=== PATIENT | female | born 1970 | race Caucasian/White ===

== ENCOUNTER 2017-05-02 01:47 | Observation (INO) | payer MEDICAID ==
[~2017-05-02] VITALS: Ht 160 cm; Wt 86.8 kg
[~2017-05-02 01:47] MED LIST: ACE500 PO; ALB18R INH; ALBU8.5H12 IH; AMIT-106 PO; AMO500 PO; AMOX-362 PO; AMPH20TA17 PO; AMPH20TA18 PO; AMPH30TA10; ASC500 PO; ASCO-188 PO; AUG875 PO; AZI250 PO; BUS10 PO; CALC-18 PO; CALC-922 PO; CALC500T42 PO; CALC500T76 PO; CEFU500T10 PO; CELE-1 PO; CHEMO; CHOL100060 PO; CHOL200074 PO; CIPR-344 PO; CLA500 PO; CLI150 PO; CRAN425C8 PO; CRAN500T; CROT60CR TP; CYA1000I IM; CYAN25004 PO; CYAN50TA3 PO; CYC10 PO; CYCL10TA29 PO; DEXA2TAB7 PO; DIAZ-308 PO; DICY10CA11 PO; DIP25 PO; DOCU-299 PO; DOCU-416 PO; ENO100I SC; ESTR1PAT3 TD; ESTR1TAB4 PO; FISH1CAP23 PO; FLAX100042 PO; FLUT16SP20 NS; GUAI120L3 PO; GUAI473L PO; HYDR-4228 PO; IRON150C19 PO; LEVO750T25 PO; LOR10/325 PO; LOR5 PO; LOR5/325 PO; METH4TAB57 PO; METO-734 PO; MODA200T39 PO; MULT-1032 PO; MULT-1038 PO; MULT-834 PO; MULT1CAP41 PO; MULTIVIT PO; NIT100 PO; NITR-1 PO; OMEG-36 PO; OMEP40CA48 PO; OND8 PO; ONDA4TAB PO; OSE75 PO; OXYC-688 PO; OXYC10TA67 PO; PAN40 PO; PAR20 PO; PARO-243 PO; PARO30TA71 PO; PENI-22 PO; PER PO; PERCOCET; PHEN120S16 PO; PHEN200T32 PO; PRE20 PO; PRO5 PO; PROAIRPT IH; PROM-110 PO; PSYL3.4P2 PO; RANI150C17 PO; SERT-182 PO; SUCR1TAB51 PO; TOLT4CAP13 PO; TRA50 PO; TRAZ-156 PO; VANC500V10 PO; VEN375 PO; VENL150C61 PO; VENL75TA98 PO; VIT B 12 PO; VIT B12 IM; VIT C PO; WAR5 PO; WARF10TA29 PO; [UNRECOGNIZED DRUG - CODE] PO; [UNRECOGNIZED DRUG - CODE] SQ
[2017-05-02] MEDS ORDERED: MIDAZOLAM 2 MG/2 ML VIAL IVP ONE (13:45)
[2017-05-02] MEDS ORDERED: LIDOCAINE/SOD BICARB 8.4% SYR ID ONE (13:45)
[2017-05-02] MEDS ORDERED: NORMOSOL R SOLN(*) 1000 ML BAG 1,000 ML IV PRN (13:45)
[2017-05-02] MEDS ORDERED: AMPICILLIN/SULBACT (*) 3 GM VL 3 GM in NS(*) 0.9% 100 ML BAG 100 ML IVPB ONE (13:45)
[2017-05-02] MEDS ORDERED: FAMOTIDINE 20 MG TAB PO ONE (13:45)
[2017-05-02 13:57] VITALS: BP 114/75
[2017-05-02] MEDS ORDERED: ROPIVACAINE 0.5% 20 ML VIAL ONE (14:22)
[2017-05-02] MEDS ORDERED: IOPAMIDOL 76% 50 ML INFUS BTL 50 ML ONE (14:22)
[2017-05-02] MEDS ORDERED: PROPOFOL EMUL(*) 10MG/ML 20 ML 20 ML ONE (14:29)
[2017-05-02] MEDS ORDERED: fentaNYL CITR 250 MCG/5 ML AMP ONE (14:29)
[2017-05-02] MEDS ORDERED: LIDOCAINE MPF 1% 5 ML VIAL ONE (14:29)
[2017-05-02] MEDS ORDERED: ONDANSETRON 4 MG/2 ML VIAL ONE (14:29)
[2017-05-02] MEDS ORDERED: DEXAMETHASONE SOD PHOS 10MG/ML ONE (14:29)
[2017-05-02] MEDS ORDERED: ROCURONIUM BROM 10 MG/ML 5 ML ONE (16:50)
[2017-05-02] MEDS ORDERED: KETAMINE HCL 200 MG/20 ML MDV ONE (16:50)
[2017-05-02] MEDS ORDERED: HALOPERIDOL LACT 5 MG/ML VIAL IM ONE (16:53)
[2017-05-02] MEDS ORDERED: SUGAMMADEX SOD 200 MG/2 ML SDV ONE (17:12)
[2017-05-02] MEDS ORDERED: CELLULOSE HEMOSTAT 1 EACH PKT OP-SITE ONE (17:33)
[2017-05-02] MEDS ORDERED: NS(*) 0.9% 1000 ML BAG 1,000 ML IV PRN (17:59)
[2017-05-02] MEDS ORDERED: ONDANSETRON 4 MG/2 ML VIAL IVP PRN (18:00)
[2017-05-02] MEDS ORDERED: FLUSH 10 ML SYR IVP PRN (18:00)
[2017-05-02] MEDS ORDERED: MORPHINE 2 MG/ML SYR IVP PRN (18:00)
[2017-05-02] MEDS ORDERED: ALBUTEROL/IPRATROPIUM 3 ML NEB NEB PRN (18:00)
[2017-05-02] MEDS ORDERED: OXYC-854 PO (18:07)
[2017-05-02] MEDS ORDERED: DOCU-416 PO (18:07)
--- NOTE | 2017-05-02 18:12 | Short(Outpt) Discharge Summary ---
KEKE ELIZABETH MD 05/02/171811: Discharge Summary Reason for Hosp/Final Diag: (1) Cholelithiasis Status: Chronic Hospital Course & Plan: 05/02/17: Lap kp completed without problems. Pt to remain overnight for observation. Departure Discharge to: Home, Self Care Discharge Instructions Home Meds Active Scripts Docusate Sodium (COLACE) 100 Mg Capsule, 1 CAP PO BID, #30 CAP 0 Refills TAKE WITH A FULL GLASS OF WATER Prov:KEKE ELIZABETH MD 05/02/17 Oxycodone Hcl/Acet 5/325 Mg (ENDOCET 5-325 TABLET) 1 Each Tablet, 1-2 TAB PO Q4H Y for PAIN, #30 TAB 0 Refills Prov:KEKE ELIZABETH MD 05/02/17 Reported Medications Cranberry Extract (CRANBERRY) 425 Mg Capsule, 2 TAB PO BID, CAPSULE 04/25/17 Psyllium Husk/Aspartame (METAMUCIL FIBER SINGLES PACKET) 3.4 Gm Powd.pack, 3.4 GM PO BID 04/25/17 Albuterol Sulfate (VENTOLIN HFA) 18 Gm Inh, 2 PUFF INH BID, INH 04/17/17 Paroxetine Hcl (PAROXETINE HCL) 30 Mg Tablet, 30 MG PO BID 04/17/17 Multivitamin W/Iron, Minerals (FLINTSTONES COMPLETE) 1 Each Tab.chew, 2 EACH PO DAILY, TAB.CHEW 10/11/16 Iron Polysaccharides Complex (POLYSACCHARIDE IRON 150) 150 Mg Capsule, 27 MG PO QDAY, CAPSULE 10/11/16 Estradiol (ESTRADIOL 0.05 MG) 1 Each Patch.tdwk, 1 EACH TD DAILY, PATCH.WK 08/30/16 Cyanocobalamin (Vitamin B-12) (Vitamin B12) Unknown Strength Tablet, 1000 MCG PO QWEEK 03/16/15 Ascorbic Acid (VITAMIN C) 500 Mg Tab.chew, 500 MG PO BID, TAB.CHEW 03/16/15 Cholecalciferol (Vitamin D3) (VITAMIN D-3) 2,000 Unit Capsule, 5000 UNIT PO QDAY , CAPSULE 03/12/15 [place]-3 Fatty Acids/Fish Oil (OMEGA 3 FISH OIL SOFTGEL) 1 Each Capsule.dr, 1 EACH PO BID 03/12/15 Diazepam (DIAZEPAM) 5 Mg Tablet, 5 MG PO BID Y for ANXIETY, #15 TAB 07/02/14 Amphet Asp/Amphet/D-Amphet (ADDERALL 20 MG TABLET) 20 Mg Tablet, 20 MG PO BID 07/02/14 Omeprazole (OMEPRAZOLE) 40 Mg Capsule.dr, 40 MG PO BID 06/24/13 Calcium (Calcium) 500 Mg Tablet, 500 MG PO BID, 0 Refills 02/06/11 Buspirone Hcl (Buspar) 10 Mg Tablet, 10 MG PO BID, 0 Refills 02/06/11 Follow up Referrals: General Surgery @ Surgery, General with Keke Elizabeth Md You have a follow up appointment scheduled with Dr. Elizabeth on 05/27/17, at 1:00pm. Diet: Regular Activity: As Tolerated Special Instructions: You may remove the white surgical dressings on 05/04/17, then you can shower. After showering, leave the incisions open to air but leave the steristrips in place until they fall off on their own. Do not immerse the incisions for 2 weeks. ADRIENNE CORNELIUS MD 05/03/17 0837: Discharge Summary Reason for Hosp/Final Diag: (1) Cholelithiasis Status: Chronic Hospital Course & Plan: 05/02/17: Lap kp completed without problems. Pt to remain overnight for observation. 05/03/17 doing well home today. Departure Discharge to: Home Discharge Instructions Home Meds Active Scripts Docusate Sodium (COLACE) 100 Mg Capsule, 1 CAP PO BID, #30 CAP 0 Refills TAKE WITH A FULL GLASS OF WATER Prov:KEKE ELIZABETH MD 05/02/17 Oxycodone Hcl/Acet 5/325 Mg (ENDOCET 5-325 TABLET) 1 Each Tablet, 1-2 TAB PO Q4H Y for PAIN, #30 TAB 0 Refills Prov:KEKE ELIZABETH MD 05/02/17 Reported Medications Cranberry Extract (CRANBERRY) 425 Mg Capsule, 2 TAB PO BID, CAPSULE 04/25/17 Psyllium Husk/Aspartame (METAMUCIL FIBER SINGLES PACKET) 3.4 Gm Powd.pack, 3.4 GM PO BID 04/25/17 Albuterol Sulfate (VENTOLIN HFA) 18 Gm Inh, 2 PUFF INH BID, INH 04/17/17 Paroxetine Hcl (PAROXETINE HCL) 30 Mg Tablet, 30 MG PO BID 1/10/18 Multivitamin W/Iron, Minerals (FLINTSTONES COMPLETE) 1 Each Tab.chew, 2 EACH PO DAILY, TAB.CHEW 10/11/16 Iron Polysaccharides Complex (POLYSACCHARIDE IRON 150) 150 Mg Capsule, 27 MG PO QDAY, CAPSULE 10/11/16 Estradiol (ESTRADIOL 0.05 MG) 1 Each Patch.tdwk, 1 EACH TD DAILY, PATCH.WK 08/30/16 Cyanocobalamin (Vitamin B-12) (Vitamin B12) Unknown Strength Tablet, 1000 MCG PO QWEEK 03/16/15 Ascorbic Acid (VITAMIN C) 500 Mg Tab.chew, 500 MG PO BID, TAB.CHEW 03/16/15 Cholecalciferol (Vitamin D3) (VITAMIN D-3) 2,000 Unit Capsule, 5000 UNIT PO QDAY , CAPSULE 03/12/15 [place]-3 Fatty Acids/Fish Oil (OMEGA 3 FISH OIL SOFTGEL) 1 Each Capsule.dr, 1 EACH PO BID 03/12/15 Diazepam (DIAZEPAM) 5 Mg Tablet, 5 MG PO BID Y for ANXIETY, #15 TAB 07/02/14 Amphet Asp/Amphet/D-Amphet (ADDERALL 20 MG TABLET) 20 Mg Tablet, 20 MG PO BID 07/02/14 Omeprazole (OMEPRAZOLE) 40 Mg Capsule.dr, 40 MG PO BID 06/24/13 Calcium (Calcium) 500 Mg Tablet, 500 MG PO BID, 0 Refills 02/06/11 Buspirone Hcl (Buspar) 10 Mg Tablet, 10 MG PO BID, 0 Refills 02/06/11 Follow up Referrals: General Surgery @ Surgery, General with Keke Elizabeth Md You have a follow up appointment scheduled with Dr. Elizabeth on 05/27/17, at 1:00pm. Diet: Regular Activity: As Tolerated Special Instructions: remove bandage and shower tomorrow Problem Qualifiers (1) Cholelithiasis: Cholelithiasis location: gallbladder Cholecystitis presence: without cholecystitis Biliary obstruction: without biliary obstruction Qualified Codes: K80.20 - Calculus of gallbladder without cholecystitis without obstruction KEKE ELIZABETH MD May 02, 2017 18:12 ADRIENNE CORNELIUS MD May 03, 2017 08:37
--- NOTE | 2017-05-02 18:20 | Post Operative Progress Note ---
Post Operative Progress Note Date: May 02, 2017 Time: 18:13 Surgeon: Rubens Dictation number: [id number] Anesthesia: GETA by Dr. Lipscomb Pre-Op Diagnosis: Symptomatic Gallstones Post-Op Diagnosis: CHELO Findings: C/W dx, normal IOC Procedure(s): Lap kp with cholangiogram Specimen Removed:(May be N/A): GB and contents Complications: None Fluids: See anesthesia record Estimated Blood Loss: Minimal Date OP Note Dictated: May 02, 2017 Time OP Note Dictated: 18:14 KEKE ELIZABETH MD May 02, 2017 18:20
[2017-05-02] MEDS ORDERED: fentaNYL CITR 100 MCG/2 ML AMP ONE (18:23)
[2017-05-02 19:31] VITALS: BP 132/83
[2017-05-02] MEDS: CALCIUM OYSTER SHELL 500MG TAB PO SCH (21:41)
[2017-05-02] MEDS: DOCUSATE SODIUM 100 MG CAP PO SCH (21:41)
[2017-05-02] MEDS: PAROXETINE HCL 10 MG TABLET PO SCH (21:41)
[2017-05-02] MEDS: busPIRone HCL 5 MG TAB PO SCH (21:41)
[2017-05-02] MEDS: ASCORBIC ACID 500 MG TAB PO SCH (21:41)
[2017-05-02] MEDS: FAMOTIDINE 20 MG TAB PO SCH (21:41)
--- NOTE | 2017-05-02 22:43 | RADIOLOGY IMAGING REPORT ---
FACILITY: [facility] [place] PATIENT NAME: Lisseth Adame : 1970 MR: [id number] V: [id number] EXAM DATE: ORDERING PHYSICIAN: KEKE ELIZABETH TECHNOLOGIST: Location: [facility] Patient: Lisseth Adame : 1970 Visit/Account:[id number] Date of Sevice: 05/02/2017 Cholangiogram in OR: Indication: Intraoperative imaging. Technique: 29 images were submitted. Fluoroscopy time was 7.2 seconds. Comparison: Ultrasound of the abdomen dated 03/28/2017. Findings: Contrast was injected through the cystic duct remnant. There is uniform opacification of th e biliary tree. The flow of contrast into the duodenum appears unrestricted. There are no signs of ob struction, dilatation, filling defect, or mass effect. Impression: Unremarkable study. Report Dictated By: Aristides Perry MD at 05/02/2017 10:35 PM Report E-Signed By: Aristides Perry MD at 05/02/2017 10:40 PM WSN:[id number]
[2017-05-03 00:15] VITALS: BP 111/69
[2017-05-03 02:35] VITALS: BP 110/68
[2017-05-03 08:11] VITALS: BP 117/71
[2017-05-03] MEDS: FAMOTIDINE 20 MG TAB PO SCH (08:23)
[2017-05-03] MEDS: CALCIUM OYSTER SHELL 500MG TAB PO SCH (08:24)
[2017-05-03] MEDS: PAROXETINE HCL 10 MG TABLET PO SCH (08:24)
[2017-05-03] MEDS: DOCUSATE SODIUM 100 MG CAP PO SCH (08:25)
[2017-05-03] MEDS: busPIRone HCL 5 MG TAB PO SCH (08:25)
[2017-05-03] MEDS: ASCORBIC ACID 500 MG TAB PO SCH (08:26)
--- NOTE | 2017-05-03 08:36 | General Surgery Progress Note ---
Subjective Progress Notes Subjective no complaints, pain under control has appetite Physical Exam Vital Signs Date Time Temp Pulse Resp B/P (MAP) Pulse Ox O2 Delivery O2 Flow Rate FiO2 05/03/17 08:11 96.9 68 20 117/71 (86) 96 Room Air 05/03/17 03:31 0.3 Assessment and Plan Problems: (1) Cholelithiasis Status: Chronic Assessment & Plan: 05/02/17: Lap kp completed without problems. Pt to remain overnight for observation. 05/03/17 doing well home today. Exam Sepsis Risk: No Definite Risk Problem Qualifiers (1) Cholelithiasis: Cholelithiasis location: gallbladder Cholecystitis presence: without cholecystitis Biliary obstruction: without biliary obstruction Qualified Codes: K80.20 - Calculus of gallbladder without cholecystitis without obstruction ADRIENNE CORNELIUS MD May 03, 2017 08:36
[2017-05-03] MEDS ORDERED: POLYSACCHARIDE IRON COM 150 MG PO SCH (09:00)
[2017-05-03] MEDS ORDERED: ESTRADIOL 0.05 MG/24 HR TD SCH (09:00)
[2017-05-03 09:08] VITALS: Ht 160 cm; Wt 86.8 kg
--- NOTE | 2017-05-03 15:08 | OPERATIVE REPORT 1 ---
EVENT DATE: May 02, 2017 SURGEON: Rd Art MD ANESTHESIOLOGIST: Omid Lipscomb MD ANESTHESIA: General endotracheal anesthesia. PREOPERATIVE DIAGNOSIS Symptomatic cholelithiasis. POSTOPERATIVE DIAGNOSIS Symptomatic cholelithiasis. PROCEDURE PERFORMED Laparoscopic cholecystectomy with intraoperative cholangiogram. COMPLICATIONS None. CONDITION Stable. BLOOD LOSS Minimal. INDICATIONS This is a 47-year-old female who presented to my office complaining of postprandial right upper quadrant abdominal pain. She was found to have gallstones, and she was requesting to have her gallbladder removed. DESCRIPTION OF PROCEDURE The patient was brought to the operating room and placed supine on the operating room table. General endotracheal anesthesia was administered, and her abdomen was prepped and draped in a sterile fashion. Timeout was completed. I injected the infraumbilical skin with 0.5% ropivacaine plain. I made a curvilinear smiley face-type incision in the infraumbilical rim and dissected down through the dermis and subcutaneous fat, and I identified the midline fascia. I made a vertical incision in the midline fascia and grasped the fascial edges with Carolyn clamps. I retracted the fascia towards the ceiling with my finger and then bluntly entered the peritoneal cavity. I placed two interrupted 0 Vicryl sutures transversely through the vertical fascial defect, inserted a 12 mm Aaron-type port through this wound, and secured it in place with sutures. I insufflated the abdomen to a pressure of 15 mmHg and inserted a 5 mm, 30-degree angled scope through this port. Next under direct visualization, I placed a 5 mm port in the epigastric midline and two 5 mm ports in the right upper quadrant. I then had the patient placed in reverse Trendelenburg and planed towards her left. I removed the viscera away from the right upper quadrant. I then grasped the fundus of the gallbladder and retracted it towards the patient's right shoulder, and the infundibulum was grasped and retracted towards the patient's right hip. I used the hook electrocautery and divided the peritoneum overlying the infundibulum and up both the medial and lateral aspects of the gallbladder, and this served to mobilize the infundibulum and open up the critical view. I stripped the peritoneum and subperitoneal contents down from the infundibulum and identified the cystic duct and artery. These were cleaned off circumferentially. I clipped proximally and distally on the artery, and then the artery was divided between the clips. The duct was clipped at the infundibulum-cystic duct junction. I made a ductotomy and then milked the duct from distal to proximal to remove any debris from the duct, and there was none. I then inserted the Wilson clamp with the cholangiocatheter and then inserted the catheter into the duct. I clamped it in place with the Wilson clamp. I aspirated first and then flushed it with saline. It flushed with no problems, and then the cholangiogram was completed at this time. The C-arm was moved into place, and I flushed the cystic duct with OptiView and observed contrast flowing through the cystic duct, the common bile duct, the duodenum, and up into the common hepatic duct and intrahepatic biliary system, all without resistance or filling defects. I then removed the cholangiocatheter and clipped the duct with three clips distal to the ductotomy and divided the duct where the ductotomy was made. I then the gallbladder from the gallbladder fossa by dividing the posterior attachments with the hook electrocautery, and then the gallbladder was placed in a surgical specimen retrieval bag and removed from the abdomen through the umbilical port site. I then irrigated and dried the right upper quadrant. There were a couple of areas of oozing on the gallbladder fossa, and these were controlled with electrocautery. I then coated the gallbladder fossa with Surgicel and Lonny hemostatic powder. I ensured all irrigation fluid was removed from the right upper quadrant. I then removed all instruments and the 5 mm ports. I inspected the peritoneal surfaces for bleeding. There was none. I desufflated the abdomen and then removed the umbilical port. Once all the CO2 was removed from the abdomen, I closed the midline fascial defect at the umbilical incision with another 0 Vicryl [id number] suture. I tied all three of these down with good reapproximation of the fascial edges with no remaining fascial defect. The skin at each port site was closed with 4-0 Monocryl subcuticular suture. The skin was cleaned and dried, and Steri-Strips were applied, followed by sterile surgical dressings. The patient was awakened and extubated in the operating room and transported to the recovery room in stable condition having tolerated the procedure without any apparent problems. J LUIS
[2017-05-04] MEDS ORDERED: PATCH REMOVAL 1 EA TP SCH (09:00)
== END 2017-05-03 08:36 | disposition home or self-care (01) ==
LOC: OR 01:47 → MED 19:30 → INTOOBSV 19:30
PROVIDERS: ADMIT Surgery; ATTEND Surgery
DX: K80.20 Calculus of gallbladder without cholecystitis without obstruction (principal)
CPT/HCPCS: 47563; 74300; 88304; G0378; J0295; J1100; J1630; J2001; J2250; J2270; J2405; J2704; J2795; J3010; J3490; J7050; Q9967

== ENCOUNTER 2017-05-08 10:39 | Emergency (ER) | payer MEDICAID ==
[2017-05-03 09:08] VITALS: Ht 160 cm; Wt 85.3 kg
[~2017-05-08] VITALS: Ht 160 cm; Wt 85.3 kg
[~2017-05-08 10:39] MED LIST changes: +OXYC-854 PO
--- NOTE | 2017-05-08 10:59 | ER Report ---
History and Physical Time Seen By MD: 10:58 Hx. of Stated Complaint: Pt had cholcystectomy last . Pt's complaint is of fever and flu symptoms. HPI/ROS CHIEF COMPLAINT: Fever HISTORY OF PRESENT ILLNESS: 47-year-old female patient presents to the emergency room with complaint of fever and bodyaches. Patient states that this started on Saturday night or early Saturday morning. She states that the bodyaches and fevers seem to last throughout night and then resolved during the day. She states she had a fever of 101. She states since then her fever is not been greater than 99. She states that it happened again the night before last and then again last night. She states that she came in to be evaluated today because the symptoms did not resolve. She states that she is achy from head to toe. She states that she has run out of her pain medication. She states that there is nothing seems to help with her discomfort. She states she's tried ice to her abdomen which has helped but that has made her more chilled. She states she has noticed some sinus congestion, cough. She denies having any nausea, vomiting or diarrhea. Should she's had no appetite. REVIEW OF SYSTEMS: Respiratory: As noted above Cardiovascular: No chest pain, no palpitations. Gastrointestinal: Patient is 6 days status post cholecystectomy. Musculoskeletal: No back pain. Allergies: Coded Allergies: bupropion (Verified Allergy, Severe, RASH, HIVES, SWELLING, 05/08/17) Home Meds Active Scripts Oxycodone Hcl/Acetaminophen (PERCOCET 5-325 MG TABLET) 1 Each Tablet, 1 EACH PO Q4-6H Y for PAIN, #10 TAB Prov:SUNIL GERMAN 05/08/17 Docusate Sodium (COLACE) 100 Mg Capsule, 1 CAP PO BID, #30 CAP 0 Refills TAKE WITH A FULL GLASS OF WATER Prov:KEKE ELIZABETH MD 05/02/17 Reported Medications Cranberry Extract (CRANBERRY) 425 Mg Capsule, 2 TAB PO BID, CAPSULE 04/25/17 Albuterol Sulfate (VENTOLIN HFA) 18 Gm Inh, 2 PUFF INH BID, INH 04/17/17 Paroxetine Hcl (PAROXETINE HCL) 30 Mg Tablet, 30 MG PO BID 04/17/17 Multivitamin W/Iron, Minerals (FLINTSTONES COMPLETE) 1 Each Tab.chew, 2 EACH PO DAILY, TAB.CHEW 10/11/16 Iron Polysaccharides Complex (POLYSACCHARIDE IRON 150) 150 Mg Capsule, 27 MG PO QDAY, CAPSULE 10/11/16 Estradiol (ESTRADIOL 0.05 MG) 1 Each Patch.tdwk, 1 EACH TD DAILY, PATCH.WK 08/30/16 Cyanocobalamin (Vitamin B-12) (Vitamin B12) Unknown Strength Tablet, 1000 MCG PO QWEEK 03/16/15 Ascorbic Acid (VITAMIN C) 500 Mg Tab.chew, 500 MG PO BID, TAB.CHEW 03/16/15 Cholecalciferol (Vitamin D3) (VITAMIN D-3) 2,000 Unit Capsule, 5000 UNIT PO QDAY , CAPSULE 03/12/15 Doucette-3 Fatty Acids/Fish Oil (OMEGA 3 FISH OIL SOFTGEL) 1 Each Capsule.dr, 1 EACH PO BID 03/12/15 Diazepam (DIAZEPAM) 5 Mg Tablet, 5 MG PO BID Y for ANXIETY, #15 TAB 07/02/14 Amphet Asp/Amphet/D-Amphet (ADDERALL 20 MG TABLET) 20 Mg Tablet, 20 MG PO BID 07/02/14 Omeprazole (OMEPRAZOLE) 40 Mg Capsule.dr, 40 MG PO BID 06/24/13 Calcium (Calcium) 500 Mg Tablet, 500 MG PO BID, 0 Refills 02/06/11 Buspirone Hcl (Buspar) 10 Mg Tablet, 10 MG PO BID, 0 Refills 02/06/11 Discontinued Reported Medications Psyllium Husk/Aspartame (METAMUCIL FIBER SINGLES PACKET) 3.4 Gm Powd.pack, 3.4 GM PO BID 04/25/17 Discontinued Scripts Oxycodone Hcl/Acet 5/325 Mg (ENDOCET 5-325 TABLET) 1 Each Tablet, 1-2 TAB PO Q4H Y for PAIN, #30 TAB 0 Refills Prov:KEKE ELIZABETH MD 05/02/17 Past Medical/Surgical History Patient has a past medical history of pulmonary emboli, hyperlipidemia, bronchitis, sinusitis, asthma, pneumonia, ulcers, cholecystitis, hiatal hernia, renal cell carcinoma, arthritis, back pain, anemia, marijuana use, alcohol use, depression, suicide attempt. Patient has surgical history of right kidney removed, cholecystitis, gastric bypass, adhesions removed, hysterectomy, left ulnar nerve release, bilateral radial nerve release, wisdom teeth removed, tonsillectomy. Patient has a family medical history of cancer. Reviewed Nurses Notes: Yes Hx Smoking: Yes (last was 24 hrs ago; 1-10 per day) Smoking Status: Current: Every Day Smoker, Light Tobacco Smoker Exposure to Second Hand Smoke?: Yes Hx Substance Use Disorder: No (marijuana last use several weeks ago) Hx Alcohol Use: Yes Constitutional Vital Sign - Last 24 Hours 05/08/17 05/08/17 10:48 14:05 Temp 99.5 Pulse 79 71 Resp 22 B/P (MAP) 117/80 114/69 (84) Pulse Ox 98 97 O2 Delivery Room Air Room Air Intake and Output 05/08/17 05/08/17 05/09/17 15:00 23:00 07:00 Intake Total 1000 ml Balance 1000 ml Physical Exam General Appearance: The patient is alert, has no immediate need for airway protection and no current signs of toxicity. ENT: Tympanic membranes are pearly-schmidt, auditory canals are patent, mucous membranes are moist. Respiratory: Chest is non tender, lungs are clear to auscultation. Cardiac: regular rate and rhythm Gastrointestinal: Abdomen is soft and diffusely tender, no masses, bowel sounds normal. Musculoskeletal: Neck: Neck is supple and non tender. Extremities have full range of motion and are non tender. Skin: No rashes or lesions. DIFFERENTIAL DIAGNOSIS: After history and physical exam differential diagnosis was considered for fever in adults including but not limited to pneumonia, urinary tract infection, viral syndrome, and influenza. Medical Decision Making Data Points Result Diagram: 05/08/17 1120 05/08/17 1120 Laboratory Hematology Test 05/08/17 10:55 05/08/17 11:20 05/08/17 12:58 Influenza Virus Type A (PCR) Negative (NEGATIVE) Influenza Virus Type B (PCR) Negative (NEGATIVE) Red Blood Count 4.24 M/uL (4.17-5.56) Mean Corpuscular Volume 91.7 fL (80.0-96.0) Mean Corpuscular Hemoglobin 31.6 pg (26.0-33.0) Mean Corpuscular Hemoglobin Concent 34.5 g/dL (32.0-36.0) Red Cell Distribution Width 13.2 % (11.5-14.5) Mean Platelet Volume 7.6 fL (7.2-11.1) Neutrophils (%) (Auto) 75.0 % (39.4-72.5) Lymphocytes (%) (Auto) 12.6 % (17.6-49.6) Monocytes (%) (Auto) 9.2 % (4.1-12.4) Eosinophils (%) (Auto) 2.6 % (0.4-6.7) Basophils (%) (Auto) 0.6 % (0.3-1.4) Nucleated RBC Relative Count (auto) 0.0 /100WBC Neutrophils # (Auto) 6.3 K/uL (2.0-7.4) Lymphocytes # (Auto) 1.0 K/uL (1.3-3.6) Monocytes # (Auto) 0.8 K/uL (0.3-1.0) Eosinophils # (Auto) 0.2 K/uL (0.0-0.5) Basophils # (Auto) 0.0 K/uL (0.0-0.1) Nucleated RBC Absolute Count (auto) 0.00 K/uL Sodium Level 141 mmol/L (137-145) Potassium Level 4.1 mmol/L (3.5-5.0) Chloride Level 103 mmol/L (98-107) Carbon Dioxide Level 23 mmol/L (22-31) Blood Urea Nitrogen 13 mg/dl (7-18) Creatinine 1.10 mg/dl (0.52-1.04) Glomerular Filtration Rate Calc 53.5 Random Glucose 87 mg/dl (75-110) Calcium Level 9.6 mg/dl (8.4-10.2) Total Bilirubin 0.9 mg/dl (0.2-1.3) Aspartate Amino Transf (AST/SGOT) 34 U/L (0-35) Alanine Aminotransferase (ALT/SGPT) 62 U/L (0-56) Alkaline Phosphatase 161 U/L (0-126) C-Reactive Protein 23.6 mg/dl (<1.0) Total Protein 8.2 gm/dl (6.3-8.2) Albumin 3.9 g/dl (3.5-5.0) Urine Color Yellow Urine Clarity Clear Urine pH 5.0 pH (4.8-9.5) Urine Specific [place] 1.038 Urine Protein Negative mg/dL (NEGATIVE) Urine Glucose (UA) Negative mg/dL (NEGATIVE) Urine Ketones Negative mg/dL (NEGATIVE) Urine Blood Negative (NEGATIVE) Urine Nitrite Negative (NEGATIVE) Urine Bilirubin Negative (NEGATIVE) Urine Urobilinogen Negative mg/dL (0.2-1.9) Urine Leukocyte Esterase Negative (NEGATIVE) Urine RBC None /HPF (0-2/HPF) Urine WBC None /HPF (0-5/HPF) Urine Squamous Epithelial Cells Many /LPF (</=FEW) Urine Bacteria Negative /HPF (NONE-FEW) Urine Mucus None /HPF (NONE-FEW) Chemistry Test 05/08/17 10:55 05/08/17 11:20 05/08/17 12:58 Influenza Virus Type A (PCR) Negative (NEGATIVE) Influenza Virus Type B (PCR) Negative (NEGATIVE) White Blood Count 8.3 k/uL (4.5-11.0) Red Blood Count 4.24 M/uL (4.17-5.56) Hemoglobin 13.4 g/dL (12.0-16.0) Hematocrit 38.8 % (34.0-47.0) Mean Corpuscular Volume 91.7 fL (80.0-96.0) Mean Corpuscular Hemoglobin 31.6 pg (26.0-33.0) Mean Corpuscular Hemoglobin Concent 34.5 g/dL (32.0-36.0) Red Cell Distribution Width 13.2 % (11.5-14.5) Platelet Count 297 K/uL (150-450) Mean Platelet Volume 7.6 fL (7.2-11.1) Neutrophils (%) (Auto) 75.0 % (39.4-72.5) Lymphocytes (%) (Auto) 12.6 % (17.6-49.6) Monocytes (%) (Auto) 9.2 % (4.1-12.4) Eosinophils (%) (Auto) 2.6 % (0.4-6.7) Basophils (%) (Auto) 0.6 % (0.3-1.4) Nucleated RBC Relative Count (auto) 0.0 /100WBC Neutrophils # (Auto) 6.3 K/uL (2.0-7.4) Lymphocytes # (Auto) 1.0 K/uL (1.3-3.6) Monocytes # (Auto) 0.8 K/uL (0.3-1.0) Eosinophils # (Auto) 0.2 K/uL (0.0-0.5) Basophils # (Auto) 0.0 K/uL (0.0-0.1) Nucleated RBC Absolute Count (auto) 0.00 K/uL Glomerular Filtration Rate Calc 53.5 Calcium Level 9.6 mg/dl (8.4-10.2) Total Bilirubin 0.9 mg/dl (0.2-1.3) Aspartate Amino Transf (AST/SGOT) 34 U/L (0-35) Alanine Aminotransferase (ALT/SGPT) 62 U/L (0-56) Alkaline Phosphatase 161 U/L (0-126) C-Reactive Protein 23.6 mg/dl (<1.0) Total Protein 8.2 gm/dl (6.3-8.2) Albumin 3.9 g/dl (3.5-5.0) Urine Color Yellow Urine Clarity Clear Urine pH 5.0 pH (4.8-9.5) Urine Specific [place] 1.038 Urine Protein Negative mg/dL (NEGATIVE) Urine Glucose (UA) Negative mg/dL (NEGATIVE) Urine Ketones Negative mg/dL (NEGATIVE) Urine Blood Negative (NEGATIVE) Urine Nitrite Negative (NEGATIVE) Urine Bilirubin Negative (NEGATIVE) Urine Urobilinogen Negative mg/dL (0.2-1.9) Urine Leukocyte Esterase Negative (NEGATIVE) Urine RBC None /HPF (0-2/HPF) Urine WBC None /HPF (0-5/HPF) Urine Squamous Epithelial Cells Many /LPF (</=FEW) Urine Bacteria Negative /HPF (NONE-FEW) Urine Mucus None /HPF (NONE-FEW) Urinalysis Test 05/08/17 12:58 Urine Color Yellow Urine Clarity Clear Urine pH 5.0 pH (4.8-9.5) Urine Specific [place] 1.038 Urine Protein Negative mg/dL (NEGATIVE) Urine Glucose (UA) Negative mg/dL (NEGATIVE) Urine Ketones Negative mg/dL (NEGATIVE) Urine Blood Negative (NEGATIVE) Urine Nitrite Negative (NEGATIVE) Urine Bilirubin Negative (NEGATIVE) Urine Urobilinogen Negative mg/dL (0.2-1.9) Urine Leukocyte Esterase Negative (NEGATIVE) Urine RBC None /HPF (0-2/HPF) Urine WBC None /HPF (0-5/HPF) Urine Squamous Epithelial Cells Many /LPF (</=FEW) Urine Bacteria Negative /HPF (NONE-FEW) Urine Mucus None /HPF (NONE-FEW) EKG/Imaging Imaging EXAMINATION: CT abdomen with IV contrast CT pelvis with IV contrast History: Abdominal pain postoperative laparoscopic cholecystectomy TECHNIQUE: Spiral scan was through the abdomen and pelvis during injection of nonionic iodinated intravenous contrast. One of the following dose optimization techniques was utilized in the performance of this exam: Automated exposure control; adjustment of the mA and/or kV according to the patient's size; or use of an iterative reconstruction technique. Specific details can be referenced in the facility's radiology CT exam operational policy. Contrast: 75 mL of IV Isovue-370. COMPARISON STUDIES: 03/28/2017. FINDINGS: Lower chest: Mild bibasilar atelectasis. Liver / biliary: Status post cholecystectomy. A fluid and air collection in the gallbladder fossa measuring 6.9 x 4.8 cm suspicious for early abscess. Pancreas: negative Spleen: negative Adrenal glands: negative Kidneys / retroperitoneum: Right kidney is surgically absent. Pelvic structures: negative Bowel / peritoneum / mesenteries: Status post gastric surgery. Vessels: negative Musculoskeletal / Body wall: Periumbilical stranding likely related to recent surgery. Lymph node assessment: negative IMPRESSION: There is a 6.9 x 4.8 cm air-fluid collection in the gallbladder fossa suspicious for early abscess formation. Report Dictated By: Kwame Page MD at 05/08/2017 12:52 PM Report E-Signed By: Kwame Page MD at 05/08/2017 1:02 PM 2 VIEWS CHEST INDICATION: Fever, post laparoscopic cholecystectomy. COMPARISON: CT examination from March 28, 2017 FINDINGS: Heart size within normal limits. Minimal left basilar atelectasis. Lungs are otherwise clear. No effusion or pneumothorax. No free air. No acute bony finding. IMPRESSION: 1. Minimal lingular atelectasis. Report Dictated By: Anshu Steiner MD at 05/08/2017 1:00 PM Report E-Signed By: Anshu Steiner MD at 05/08/2017 1:02 PM ED Course/Re-evaluation ED Course Patient was examined, history and physical were obtained. Differential diagnoses were considered. On examination lungs are clear, heart is regular, abdomen is soft and diffusely tender. A CBC, CMP, urinalysis, chest x-ray, CT scan of abdomen and pelvis, influenza, were done. With the patient having recent surgery is concerned this could be a postoperative complication. CBC was unremarkable with a white count of 8.3, influenza was negative, CMP was unremarkable with creatinine being 1.1. ALT and alkaline phosphatase were slightly elevated at 60 and 120. Chest x-ray was negative except for some atelectasis. The CT scan showed fluid filled area where the gallbladder had been with air. They're concerned this could be a developing abscess. I did call and talk with Dr. bowers to deb, general surgeon, as is my impression the patient was following up with him. He requested I speak with Dr. Elizabeth. I spoke with Dr. Elizabeth who reviewed the images. He felt that the area where the gallbladder had been was caused by some powder they put him to help with clotting. With her normal lab work and with her presentation a believe this was likely a viral syndrome as opposed to a postsurgical clip location. I discussed this with the patient. We will have her increase fluid intake, get plenty of rest. I will go ahead and refill her Percocet. She is follow-up with Dr. Elizabeth his previous schedule. She is to follow up with her primary care provider in the next week. She is return to emergency room if condition worsens. She should verbalized understanding and agreement. Decision to Disposition Date: May 08, 2017 Decision to Disposition Time: 13:55 Depart Departure Latest Vital Signs Vital Signs Date Time Temp Pulse Resp B/P (MAP) Pulse Ox O2 Delivery O2 Flow Rate FiO2 05/08/17 14:05 71 114/69 (84) 97 Room Air 05/08/17 10:48 99.5 22 Impression: Primary Impression: Viral syndrome Additional Impression: S/P cholecystectomy Condition: Improved Disposition: HOME OR SELF-CARE Referrals: CORINNE BAH (PCP) New Scripts Oxycodone Hcl/Acetaminophen (PERCOCET 5-325 MG TABLET) 1 Each Tablet 1 EACH PO Q4-6H Y for PAIN, #10 TAB Prov: SUNIL GERMAN 05/08/17 Patient Instructions: Viral Syndrome (ED) Additional Instructions: Increase fluid intake. Get plenty of rest. Return to the ER if condition worsens; fevers greater than 100.4, uncontrollable pain, uncontrollable nausea or vomiting. Follow up with Dr. Elizabeth as previously directed. This is something that will pass in the next 3-4 days. Follow up with your primary care provider in the next week. Problem Qualifiers SUNIL GERMAN May 08, 2017 10:59
[2017-05-08] MEDS ORDERED: NS(*) 0.9% 1000 ML BAG 1,000 ML IV ONE (11:09)
[2017-05-08] MEDS ORDERED: KETOROLAC 30 MG/ML VIAL IVP ONE (11:10)
[2017-05-08] MEDS ORDERED: NS 0.9% 20 ML SDV 40 ML ONE (11:25)
[2017-05-08] MEDS ORDERED: IOPAMIDOL 76% 75 ML INFUS BTL 75 ML ONE (11:25)
[2017-05-08 11:32] LABS: PLATELET COUNT, AUTOMATED 297 K/uL (150-450)
--- NOTE | 2017-05-08 13:06 | RADIOLOGY IMAGING REPORT ---
FACILITY: [facility] PATIENT NAME: Lisseth Adame : 1970 MR: [id number] V: [id number] EXAM DATE: ORDERING PHYSICIAN: SUNIL GERMAN TECHNOLOGIST: Location[place] [facility] [place] Patient: Lisseth Adame : 1970 Visit/Account:[id number] Date of Sevice: 05/08/2017 2 VIEWS CHEST INDICATION: Fever, post laparoscopic cholecystectomy. COMPARISON: CT examination from March 28, 2017 FINDINGS: Heart size within normal limits. Minimal left basilar atelectasis. Lungs are otherwise clear. No effusion or pneumothorax. No free air. No acute bony finding. IMPRESSION: 1. Minimal lingular atelectasis. Report Dictated By: Anshu Steiner MD at 05/08/2017 1:00 PM Report E-Signed By: Anshu Steiner MD at 05/08/2017 1:02 PM WSN:[id number]
--- NOTE | 2017-05-08 13:06 | RADIOLOGY IMAGING REPORT ---
[facility] PATIENT NAME: Lisseth Admae : 1970 MR: [id number] V: [id number] EXAM DATE: ORDERING PHYSICIAN: SUNIL GERMAN TECHNOLOGIST: Location: [facility] Patient: Lisseth Adame : 1970 Visit/Account:[id number] Date of Sevice: 05/08/2017 EXAMINATION: CT abdomen with IV contrast CT pelvis with IV contrast History: Abdominal pain postoperative laparoscopic cholecystectomy TECHNIQUE: Spiral scan was through the abdomen and pelvis during injection of nonionic iodinated in travenous contrast. One of the following dose optimization techniques was utilized in the performance of this exam: Automated exposure control; adjustment of the mA and/or kV according to the patient's size; or use of an iterative reconstruction technique. Specific details can be referenced in the [facility]'s radiology CT exam operational policy. Contrast: 75 mL of IV Isovue-370. COMPARISON STUDIES: 03/28/2017. FINDINGS: Lower chest: Mild bibasilar atelectasis. Liver / biliary: Status post cholecystectomy. A fluid and air collection in the gallbladder fossa becca suring 6.9 x 4.8 cm suspicious for early abscess. Pancreas: negative Spleen: negative Adrenal glands: negative Kidneys / retroperitoneum: Right kidney is surgically absent. Pelvic structures: negative Bowel / peritoneum / mesenteries: Status post gastric surgery. Vessels: negative Musculoskeletal / Body wall: Periumbilical stranding likely related to recent surgery. Lymph node assessment: negative IMPRESSION: There is a 6.9 x 4.8 cm air-fluid collection in the gallbladder fossa suspicious for early abscess fo rmation. Report Dictated By: Kwame Page MD at 05/08/2017 12:52 PM Report E-Signed By: Kwame Page MD at 05/08/2017 1:02 PM WSN:[id number]
[2017-05-08] MEDS ORDERED: OXYC-865 PO (13:52)
[2017-05-08 14:05] VITALS: BP 114/69
[2017-05-10] MEDS ORDERED: AMOX-559 PO (13:12)
[2017-05-10] MEDS ORDERED: OXYC-865 PO (13:12)
== END 2017-05-08 14:08 | disposition home or self-care (01) ==
LOC: ER 11:05
DX: B34.9 Viral infection, unspecified (principal); Z98.890 Other specified postprocedural states
CPT/HCPCS: 71046; 74177; 81001; 85025; 86140; 87502; 99284; J1885; J7030; J7050; Q9967; 82040; 82247; 82310; 82374; 82435; 82565; 82947; 84075; 84132; 84155; 84295; 84450; 84460; 84520

== ENCOUNTER 2017-05-15 09:17 | Inpatient (IN) | payer MEDICAID ==
[~2017-05-15] VITALS: Ht 160 cm; Wt 85.9 kg
[~2017-05-15 09:17] MED LIST changes: +AMOX-559 PO; +OXYC-865 PO
--- NOTE | 2017-05-15 10:00 | ER Report ---
History and Physical Time Seen By MD: 09:30 Hx. of Stated Complaint: FEVER, CHILLS, NAUSEA, PAIN X 1 WEEK. GALL BLADDER SURGERY 2 WEEKS AGO. HPI/ROS CHIEF COMPLAINT: Abdominal pain nausea HISTORY OF PRESENT ILLNESS: 47 year old female status post gallbladder removal questionable early abscess seen by surgeon couple days ago last CAT scan was several days prior to that showed possible early abscess formation started antibiotics per surgical notes patient was doing quite well been getting worse the last couple days localized periumbilical area she says she's had some purulent drainage and discharge not currently patient has nausea one episode of emesis no diarrhea. Is localized the periumbilical area says she just feels like "crap". REVIEW OF SYSTEMS: Respiratory: No cough, no dyspnea. Cardiovascular: No chest pain, no palpitations. Gastrointestinal: Vomiting abdominal pain Musculoskeletal: No back pain. Remainder of the 14 system rev: Yes Allergies: Coded Allergies: bupropion (Verified Allergy, Severe, RASH, HIVES, SWELLING, 05/15/17) Home Meds Active Scripts Amoxicillin/Pot Clav 875-125 Mg Tab (AUGMENTIN 875-125 TABLET) 1 Each Tablet, 1 TAB PO BID, #14 TAB 0 Refills Prov:KEKE ELIZABETH MD 05/10/17 Docusate Sodium (COLACE) 100 Mg Capsule, 1 CAP PO BID, #30 CAP 0 Refills TAKE WITH A FULL GLASS OF WATER Prov:KEKE ELIZABETH MD 05/02/17 Reported Medications Cranberry Extract (CRANBERRY) 425 Mg Capsule, 2 TAB PO BID, CAPSULE 04/25/17 Albuterol Sulfate (VENTOLIN HFA) 18 Gm Inh, 2 PUFF INH BID, INH 04/17/17 Paroxetine Hcl (PAROXETINE HCL) 30 Mg Tablet, 30 MG PO BID 04/17/17 Multivitamin W/Iron, Minerals (FLINTSTONES COMPLETE) 1 Each Tab.chew, 2 EACH PO DAILY, TAB.CHEW 10/11/16 Iron Polysaccharides Complex (POLYSACCHARIDE IRON 150) 150 Mg Capsule, 27 MG PO QDAY, CAPSULE 10/11/16 Estradiol (ESTRADIOL 0.05 MG) 1 Each Patch.tdwk, 1 EACH TD DAILY, PATCH.WK 08/30/16 Cyanocobalamin (Vitamin B-12) (Vitamin B12) Unknown Strength Tablet, 1000 MCG PO QWEEK 03/16/15 Ascorbic Acid (VITAMIN C) 500 Mg Tab.chew, 500 MG PO BID, TAB.CHEW 03/16/15 Cholecalciferol (Vitamin D3) (VITAMIN D-3) 2,000 Unit Capsule, 5000 UNIT PO QDAY , CAPSULE 03/12/15 [place]-3 Fatty Acids/Fish Oil (OMEGA 3 FISH OIL SOFTGEL) 1 Each Capsule.dr, 1 EACH PO BID 03/12/15 Diazepam (DIAZEPAM) 5 Mg Tablet, 5 MG PO BID Y for ANXIETY, #15 TAB 07/02/14 Amphet Asp/Amphet/D-Amphet (ADDERALL 20 MG TABLET) 20 Mg Tablet, 20 MG PO BID 07/02/14 Omeprazole (OMEPRAZOLE) 40 Mg Capsule.dr, 40 MG PO BID 06/24/13 Calcium (Calcium) 500 Mg Tablet, 500 MG PO BID, 0 Refills 02/06/11 Buspirone Hcl (Buspar) 10 Mg Tablet, 10 MG PO BID, 0 Refills 02/06/11 Discontinued Reported Medications Psyllium Husk/Aspartame (METAMUCIL FIBER SINGLES PACKET) 3.4 Gm Powd.pack, 3.4 GM PO BID 04/25/17 Discontinued Scripts Oxycodone Hcl/Acetaminophen (PERCOCET 5-325 MG TABLET) 1 Each Tablet, 1 EACH PO Q4-6H Y for PAIN, #10 TAB Prov:KEKE ELIZABETH MD 05/10/17 Oxycodone Hcl/Acet 5/325 Mg (ENDOCET 5-325 TABLET) 1 Each Tablet, 1-2 TAB PO Q4H Y for PAIN, #30 TAB 0 Refills Prov:KEKE ELIZABETH MD 05/02/17 Reviewed Nurses Notes: Yes Old Medical Records Reviewed: Yes Hx Smoking: Yes (last was 24 hrs ago; 1-10 per day) Smoking Status: Current: Every Day Smoker, Light Tobacco Smoker Exposure to Second Hand Smoke?: Yes Hx Substance Use Disorder: No (marijuana last use several weeks ago) Hx Alcohol Use: No Constitutional Vital Sign - Last 24 Hours 05/15/17 09:33 Temp 98.6 Pulse 77 Resp 20 B/P (MAP) 114/72 Pulse Ox 98 O2 Delivery Room Air Physical Exam General Appearance: The patient is alert, has no immediate need for airway protection and no current signs of toxicity. Appears uncomfortable Eyes: Pupils equal and round no injection. Respiratory: Chest is non tender, lungs are clear to auscultation. Cardiac: regular rate and rhythm [ ] Gastrointestinal: Postoperative surgical's adhesion scar noted no obvious drainage no redness inflammation mild tenderness to deep palpation normal bowel sounds otherwise normal Musculoskeletal: Neck: Neck is supple and non tender. Extremities have full range of motion and are non tender. Skin: No rashes or lesions. [ ] DIFFERENTIAL DIAGNOSIS: After history and physical exam differential diagnosis was considered for abscess formation postoperative complication Medical Decision Making Data Points Result Diagram: 05/15/17 1015 05/15/17 1015 Laboratory Hematology Test 05/15/17 10:15 Red Blood Count 4.03 M/uL (4.17-5.56) Mean Corpuscular Volume 91.4 fL (80.0-96.0) Mean Corpuscular Hemoglobin 30.6 pg (26.0-33.0) Mean Corpuscular Hemoglobin Concent 33.5 g/dL (32.0-36.0) Red Cell Distribution Width 13.6 % (11.5-14.5) Mean Platelet Volume 7.0 fL (7.2-11.1) Neutrophils (%) (Auto) 80.7 % (39.4-72.5) Lymphocytes (%) (Auto) 10.5 % (17.6-49.6) Monocytes (%) (Auto) 7.4 % (4.1-12.4) Eosinophils (%) (Auto) 0.8 % (0.4-6.7) Basophils (%) (Auto) 0.6 % (0.3-1.4) Nucleated RBC Relative Count (auto) 0.0 /100WBC Neutrophils # (Auto) 9.9 K/uL (2.0-7.4) Lymphocytes # (Auto) 1.3 K/uL (1.3-3.6) Monocytes # (Auto) 0.9 K/uL (0.3-1.0) Eosinophils # (Auto) 0.1 K/uL (0.0-0.5) Basophils # (Auto) 0.1 K/uL (0.0-0.1) Nucleated RBC Absolute Count (auto) 0.00 K/uL Peripheral Blood Smear Yes Y/N Sodium Level 143 mmol/L (137-145) Potassium Level 4.2 mmol/L (3.5-5.0) Chloride Level 108 mmol/L (98-107) Carbon Dioxide Level 21 mmol/L (22-31) Blood Urea Nitrogen 14 mg/dl (7-18) Creatinine 1.20 mg/dl (0.52-1.04) Glomerular Filtration Rate Calc 48.4 Random Glucose 88 mg/dl (75-110) Calcium Level 9.7 mg/dl (8.4-10.2) Total Bilirubin 0.6 mg/dl (0.2-1.3) Aspartate Amino Transf (AST/SGOT) 29 U/L (0-35) Alanine Aminotransferase (ALT/SGPT) 43 U/L (0-56) Alkaline Phosphatase 237 U/L (0-126) Total Protein 8.1 gm/dl (6.3-8.2) Albumin 3.7 g/dl (3.5-5.0) Lipase 38 U/L (23-300) Chemistry Test 05/15/17 10:15 White Blood Count 12.2 k/uL (4.5-11.0) Red Blood Count 4.03 M/uL (4.17-5.56) Hemoglobin 12.3 g/dL (12.0-16.0) Hematocrit 36.9 % (34.0-47.0) Mean Corpuscular Volume 91.4 fL (80.0-96.0) Mean Corpuscular Hemoglobin 30.6 pg (26.0-33.0) Mean Corpuscular Hemoglobin Concent 33.5 g/dL (32.0-36.0) Red Cell Distribution Width 13.6 % (11.5-14.5) Platelet Count 532 K/uL (150-450) Mean Platelet Volume 7.0 fL (7.2-11.1) Neutrophils (%) (Auto) 80.7 % (39.4-72.5) Lymphocytes (%) (Auto) 10.5 % (17.6-49.6) Monocytes (%) (Auto) 7.4 % (4.1-12.4) Eosinophils (%) (Auto) 0.8 % (0.4-6.7) Basophils (%) (Auto) 0.6 % (0.3-1.4) Nucleated RBC Relative Count (auto) 0.0 /100WBC Neutrophils # (Auto) 9.9 K/uL (2.0-7.4) Lymphocytes # (Auto) 1.3 K/uL (1.3-3.6) Monocytes # (Auto) 0.9 K/uL (0.3-1.0) Eosinophils # (Auto) 0.1 K/uL (0.0-0.5) Basophils # (Auto) 0.1 K/uL (0.0-0.1) Nucleated RBC Absolute Count (auto) 0.00 K/uL Peripheral Blood Smear Yes Y/N Glomerular Filtration Rate Calc 48.4 Calcium Level 9.7 mg/dl (8.4-10.2) Total Bilirubin 0.6 mg/dl (0.2-1.3) Aspartate Amino Transf (AST/SGOT) 29 U/L (0-35) Alanine Aminotransferase (ALT/SGPT) 43 U/L (0-56) Alkaline Phosphatase 237 U/L (0-126) Total Protein 8.1 gm/dl (6.3-8.2) Albumin 3.7 g/dl (3.5-5.0) Lipase 38 U/L (23-300) ED Course/Re-evaluation ED Course ED clinical course 47-year-old female history of surgical intervention resulting in a possible abscess unclear etiology initial scan was non- confirmatory comes back to the emergency department with abdominal pain periumbilical no obvious sign of infection no sign of discharge from the wound surgical site patient uncomfortable CT was unable to be performed in the ED due to a maintenance issue general surgery at bedside will be admitting the patient today for inpatient evaluation Decision to Disposition Date: May 15, 2017 Decision to Disposition Time: 11:26 Depart Departure Latest Vital Signs Vital Signs Date Time Temp Pulse Resp B/P (MAP) Pulse Ox O2 Delivery O2 Flow Rate FiO2 05/15/17 09:33 98.6 77 20 114/72 98 Room Air Impression: Primary Impression: Post op infection Condition: Improved Disposition: Admitted from ER Referrals: CORINNE BAH (PCP) SHAGUFTA ALFONSO MD May 15, 2017 09:59
[2017-05-15 10:23] LABS: PLATELET COUNT, AUTOMATED 532 K/uL (150-450)
[2017-05-15] MEDS ORDERED: ERTAPENEM(*) 1 GM VIAL 1 GM in NS(*) 0.9% 100 ML ADDVANT BAG 100 ML IVPB ONE (11:25)
[2017-05-15] MEDS ORDERED: ONDANSETRON 4 MG/2 ML VIAL IVP PRN (11:25)
[2017-05-15] MEDS ORDERED: NALOXONE HCL 0.4 MG/ML VIAL IVP PRN (11:25)
[2017-05-15] MEDS ORDERED: FLUSH 10 ML SYR IVP PRN (11:25)
--- NOTE | 2017-05-15 11:34 | Gen Surgery History & Physical ---
History of Present Illness Chief Complaint Abdominal pain and fevers History of Present Illness 47-year-old female who is now 13 days status post uncomplicated laparoscopic cholecystectomy who has been having issues with postoperative fevers as well as abdominal pain. She was seen in the emergency room last week where her white blood cell count was normal and she was afebrile and a CT scan was completed which revealed some debris in the gallbladder fossa and there is question about whether this was an early abscess. She was sent home and I saw her in the office a couple of days later. I was concerned about a possible periumbilical infection and started her on oral antibiotics and warm compresses and it had started to drain over the weekend. I had an appointment to see her 2 days ago but she did not show up and she reports that she thought her appointment was next week and not 2 days ago. She comes into the emergency room today complaining of continued fevers up to over 101 and worsening abdominal pain, especially in the right upper quadrant. She also reports having watery diarrhea for the last for [address] scan has been unable to be performed in the emergency room because it is down for maintenance issues this morning. I was asked to come down and evaluate the patient. History Problems: (1) Transitional cell carcinoma Status: Chronic (2) Pulmonary embolism Status: Chronic (3) Iron deficiency anemia Status: Chronic (4) History of hysterectomy Status: Chronic (5) History of gastric bypass Status: Chronic (6) History of nephrectomy Status: Chronic (7) S/P cholecystectomy Status: Chronic Home Meds Active Scripts Amoxicillin/Pot Clav 875-125 Mg Tab (AUGMENTIN 875-125 TABLET) 1 Each Tablet, 1 TAB PO BID, #14 TAB 0 Refills Prov:KEKE ELIZABETH MD 05/10/17 Docusate Sodium (COLACE) 100 Mg Capsule, 1 CAP PO BID, #30 CAP 0 Refills TAKE WITH A FULL GLASS OF WATER Prov:KEKE ELIZABETH MD 05/02/17 Reported Medications Cranberry Extract (CRANBERRY) 425 Mg Capsule, 2 TAB PO BID, CAPSULE 04/25/17 Albuterol Sulfate (VENTOLIN HFA) 18 Gm Inh, 2 PUFF INH BID, INH 04/17/17 Paroxetine Hcl (PAROXETINE HCL) 30 Mg Tablet, 30 MG PO BID 04/17/17 Multivitamin W/Iron, Minerals (FLINTSTONES COMPLETE) 1 Each Tab.chew, 2 EACH PO DAILY, TAB.CHEW 10/11/16 Iron Polysaccharides Complex (POLYSACCHARIDE IRON 150) 150 Mg Capsule, 27 MG PO QDAY, CAPSULE 10/11/16 Estradiol (ESTRADIOL 0.05 MG) 1 Each Patch.tdwk, 1 EACH TD DAILY, PATCH.WK 08/30/16 Cyanocobalamin (Vitamin B-12) (Vitamin B12) Unknown Strength Tablet, 1000 MCG PO QWEEK 03/16/15 Ascorbic Acid (VITAMIN C) 500 Mg Tab.chew, 500 MG PO BID, TAB.CHEW 03/16/15 Cholecalciferol (Vitamin D3) (VITAMIN D-3) 2,000 Unit Capsule, 5000 UNIT PO QDAY , CAPSULE 03/12/15 [place]-3 Fatty Acids/Fish Oil (OMEGA 3 FISH OIL SOFTGEL) 1 Each Capsule.dr, 1 EACH PO BID 03/12/15 Diazepam (DIAZEPAM) 5 Mg Tablet, 5 MG PO BID Y for ANXIETY, #15 TAB 07/02/14 Amphet Asp/Amphet/D-Amphet (ADDERALL 20 MG TABLET) 20 Mg Tablet, 20 MG PO BID 07/02/14 Omeprazole (OMEPRAZOLE) 40 Mg Capsule.dr, 40 MG PO BID 06/24/13 Calcium (Calcium) 500 Mg Tablet, 500 MG PO BID, 0 Refills 02/06/11 Buspirone Hcl (Buspar) 10 Mg Tablet, 10 MG PO BID, 0 Refills 02/06/11 Discontinued Reported Medications Psyllium Husk/Aspartame (METAMUCIL FIBER SINGLES PACKET) 3.4 Gm Powd.pack, 3.4 GM PO BID 04/25/17 Discontinued Scripts Oxycodone Hcl/Acetaminophen (PERCOCET 5-325 MG TABLET) 1 Each Tablet, 1 EACH PO Q4-6H Y for PAIN, #10 TAB Prov:KEKE ELIZABETH MD 05/10/17 Oxycodone Hcl/Acet 5/325 Mg (ENDOCET 5-325 TABLET) 1 Each Tablet, 1-2 TAB PO Q4H Y for PAIN, #30 TAB 0 Refills Prov:KEKE ELIZABETH MD 05/02/17 Allergies: Coded Allergies: bupropion (Verified Allergy, Severe, RASH, HIVES, SWELLING, 05/15/17) Patient History: Adopted Diabetes mellitus CHILD FH: bipolar disorder CHILD Review of Systems All Systems Reviewed/Normal: Yes, Except as Noted Constitutional: Fever, Chills Gastrointestinal: Nausea, Diarrhea, Abdominal Pain Exam General Appearance: Alert, Awake, Afebrile, Other (Tearful) Neuro: No Gross deficits Eyes: PERRLA GI: Other (Soft, diffuse TTP, greatest in RUQ. No peritoneal signs.) Extremities: Warm, Perfused Medical Decision Making Data Points Result Diagram: 05/15/17 1015 05/15/17 1015 Assessment and Plan Problems: (1) Postoperative fever Status: Acute Assessment & Plan: Will admit for pain control and IV antibiotics. The CT scanner as close to be back up and running here in the next couple of hours. We' ll get a CT scan of her abdomen and pelvis after the CT scan is functional. We' ll send stool for C. difficile. We will keep her nothing by mouth until the CT scan is completed. We'll control her pain with a PERSONAL INVESTMENT ADVISER and IV Tylenol. I have explained this plan to her and she seems somewhat relieved and is agreeable with proceeding with this plan. (2) S/P cholecystectomy Status: Chronic Condition Stable. Time Spent: < 30 min Venous Thromboembolism VTE Risk Physician Assess for VTE Risk: Yes VTE Diagnostic Test 2 Days Prior to Admit: No Antithrombotics Is Pt On Any Antithrombotics?: No KEKE ELIZABETH MD May 15, 2017 11:34
[2017-05-15] MEDS ORDERED: ERTAPENEM 1 GM VIAL ONE (11:38)
[2017-05-15] MEDS ORDERED: NS(*) 0.9% 100 ML BAG 100 ML ONE (11:41)
[2017-05-15] MEDS: NS(*) 0.9% 1000 ML BAG 1,000 ML IV PRN ×2 (11:53→23:48)
[2017-05-15 12:33] VITALS: BP 128/78
[2017-05-15] MEDS ORDERED: ESTR0.5T16 PO (12:37)
[2017-05-15] MEDS ORDERED: LIDOCAINE/SOD BICARB 8.4% SYR ID ONE (13:50)
[2017-05-15] MEDS: HYDROmorphone PCA 6 MG/30 ML IV PRN (14:30)
[2017-05-15] MEDS: ACETAMINOPHEN(*)1000 MG/100 ML 100 ML IVPB SCH ×3 (14:31→23:48)
[2017-05-15] MEDS ORDERED: NS 0.9% 20 ML SDV 40 ML ONE (14:43)
[2017-05-15] MEDS ORDERED: IOPAMIDOL 76% 75 ML INFUS BTL 75 ML ONE (14:43)
--- NOTE | 2017-05-15 15:44 | RADIOLOGY IMAGING REPORT ---
FACILITY: [facility] PATIENT NAME: Lisseth Adame : 1970 MR: [id number] V: [id number] EXAM DATE: ORDERING PHYSICIAN: KEKE ELIZABETH TECHNOLOGIST: Location: [facility] Patient: Lisseth Adame : 1970 Visit/Account:[id number] Date of Sevice: 05/15/2017 EXAMINATION: CT abdomen and pelvis without and with IV contrast HISTORY: Postop abdominal pain and fevers. TECHNIQUE: Axial CT images of the abdomen and pelvis were obtained without and with IV contrast, wi th coronal and sagittal 2D reconstructed images. One of the following dose optimization techniques was utilized in the performance of this exam: Autom ated exposure control; adjustment of the mA and/or kV according to the patient's size; or use of an i terative reconstruction technique. Specific details can be referenced in the facility's radiology C T exam operational policy. Contrast: 75 mL of IV Isovue-370. COMPARISON: 05/08/2017 and 03/28/2017. FINDINGS: Hepatobiliary: Cholecystectomy. Loculated fluid and air collection along the gallbladder fossa has in creased in size from the prior CT, suspicious for abscess. This collection measures 6.2 x 7.9 x 7.6 c m (AP x Trans x CC), previously 4.8 x 6.7 x 4.6 cm. Adjacent cholecystectomy clips. No bile duct dila tation. Normal hepatic size and morphology. No focal liver mass. The hepatic veins and portal veins a re patent. Spleen: Negative. Pancreas: Negative. Adrenal glands: Negative. Kidneys: Prior right nephrectomy. Normal CT appearance of the left kidney. No urinary calculi or hyd ronephrosis. Bowel and peritoneum: The small bowel and colon are normal in caliber, without evidence of obstructi on or any focal inflammatory process. Surgical changes of gastric bypass. Unremarkable appendix in th e mid right abdomen. No free fluid or free intraperitoneal air. Pelvic structures: Hysterectomy. Lymph node assessment: Negative. Vessels: Negative. Musculoskeletal: Negative. Body wall: There is some periumbilical stranding with several punctate bubbles of air likely related to the recent surgery. No new localized fluid collection or hematoma along the abdominal wall. Lung bases: Mild atelectasis in the lung bases. IMPRESSION: 1. Surgical changes of cholecystectomy. 2. A complex 7.9 cm fluid and air collection in the gallbladder fossa has increased in size since the prior exam and remains suspicious for abscess. 3. No other new intra-abdominal findings. No bile duct dilatation. Report Dictated By: Maicol Cisneros MD at 05/15/2017 3:31 PM Report E-Signed By: Maicol Cisneros MD at 05/15/2017 3:39 PM WSN:[id number]
[2017-05-15 20:33] VITALS: BP 106/66
[2017-05-15 23:49] VITALS: BP 111/68
[2017-05-16 03:21] VITALS: BP 109/66
[2017-05-16] MEDS: ACETAMINOPHEN(*)1000 MG/100 ML 100 ML IVPB SCH ×4 (05:30→23:27)
[2017-05-16 05:53] LABS: PLATELET COUNT, AUTOMATED 493 K/uL (150-450)
[2017-05-16 07:11] VITALS: BP 104/58
[2017-05-16] MEDS ORDERED: LORazepam 2 MG/ML VIAL IVP ONE (07:25)
--- NOTE | 2017-05-16 07:25 | General Surgery Progress Note ---
Subjective Progress Notes Subjective Feels better this morning. Feels sweaty. Not much pain. Physical Exam Vital Signs Date Time Temp Pulse Resp B/P (MAP) Pulse Ox O2 Delivery O2 Flow Rate FiO2 05/16/17 07:11 98.9 70 22 104/58 (73) 94 Room Air General Appearance: Alert, Awake, No Acute Distress, Afebrile GI: Other (Soft, mild RUQ TTP.) Extremities: Warm, Perfused Result Diagram: 05/16/17 0510 05/16/17 0510 Assessment and Plan Problems: (1) Postoperative fever Status: Acute Assessment & Plan: 05/15/17: Will admit for pain control and IV antibiotics. The CT scanner as close to be back up and running here in the next couple of hours. We'll get a CT scan of her abdomen and pelvis after the CT scan is functional. We'll send stool for C. difficile. We will keep her nothing by mouth until the CT scan is completed. We'll control her pain with a GUIDANCE AND CONTROL SYSTEM ENGINEER and IV Tylenol. I have explained this plan to her and she seems somewhat relieved and is agreeable with proceeding with this plan. 05/16/17: Doing well. No fevers overnight. CT reveals a growing abscess in her gallbladder fossa. Will have the abscess drained via CT guidance today. No BM yet so although she had diarrhea prior to admission she has not since admission and so no sample provided for C. diff. O/W CCM. (2) S/P cholecystectomy Status: Chronic Condition Stable. Time Spent: < 30 min Exam Sepsis Risk: No Definite Risk KEKE ELIZABETH MD May 16, 2017 07:25
[2017-05-16] MEDS: PANTOPRAZOLE SOD 40 MG IV VIAL IVP SCH (08:53)
[2017-05-16] MEDS: ERTAPENEM(*) 1 GM VIAL 1 GM in NS(*) 0.9% 100 ML ADDVANT BAG 100 ML IVPB SCH (09:06)
[2017-05-16] MEDS: NS(*) 0.9% 1000 ML BAG 1,000 ML IV PRN (09:53)
[2017-05-16 11:05] VITALS: BP 104/70
--- NOTE | 2017-05-16 13:23 | RADIOLOGY IMAGING REPORT ---
FACILITY: [facility] PATIENT NAME: Lisseth Adame : 1970 MR: [id number] V: [id number] EXAM DATE: ORDERING PHYSICIAN: KEKE ELIZABETH TECHNOLOGIST: Location: [facility] [place] Patient: Lisseth Adame : 1970 Visit/Account:[id number] Date of Sevice: 05/16/2017 CT-guided abscess drain placement: History: Patient status post cholecystectomy. Enlarging fluid collection in the gallbladder fossa. Comparison: 05/15/2017 Procedure/findings: Risks of the procedure were discussed with the patient who signed consent. Anesthesia: Patient did not receive sedation during the procedure. Patient was premedicated on the f santos prior to coming to radiology. Formal timeout was performed. Patient was placed supine on the CT table and images were obtained of the right upper quadrant which demonstrate the fluid collection in the gallbladder fossa. One of th e following dose optimization techniques was utilized in the performance of this exam: Automated expo sure control; adjustment of the mA and/or kV according to the patient's size; or use of an iterative reconstruction technique. Specific details can be referenced in the facility's radiology CT exam op erational policy. Skin right upper quadrant was prepped and draped in a sterile fashion. Skin and soft tissues anesthe tized with 1% buffered lidocaine. Using CT fluoroscopy, a 19-gauge needle was advanced into the flui d collection. 2-3 of purulent appearing material was aspirated and sent to the lab for the requested studies. 0.035 inch wire was advanced through the needle and exchanged for 8 and 10 Iraqi dilators . A 12 Iraqi pigtail catheter was advanced over the wire and pigtail was formed in the fluid collec tion. Drain was attached to an accordion drainage bag . Tube was secured to the skin with a stayFix device. Post procedure images demonstrate tube in good position in the gallbladder fossa with signi ficant decrease in size of the fluid collection. IMPRESSION: CT-guided placement of a 12 Iraqi pigtail catheter in an abscess in the gallbladder tereso a. Report Dictated By: Mayra Hill MD at 05/16/2017 1:08 PM Report E-Signed By: Mayra Hill MD at 05/16/2017 1:18 PM WSN:[email or web address]
[2017-05-16 15:36] VITALS: BP 114/70
[2017-05-16 17:01] VITALS: Ht 160 cm; Wt 85.9 kg
[2017-05-16 19:22] VITALS: BP 103/76
[2017-05-16 23:28] VITALS: BP 111/73
[2017-05-17] MEDS: NS(*) 0.9% 1000 ML BAG 1,000 ML IV PRN (04:14)
[2017-05-17 04:15] VITALS: BP 107/71
[2017-05-17] MEDS: ACETAMINOPHEN(*)1000 MG/100 ML 100 ML IVPB SCH ×3 (05:35→18:31)
[2017-05-17 06:18] LABS: PLATELET COUNT, AUTOMATED 434 K/uL (150-450)
[2017-05-17] MEDS ORDERED: NS(*) 0.9% 1000 ML BAG 1,000 ML IV PRN (08:26)
--- NOTE | 2017-05-17 08:44 | General Surgery Progress Note ---
Subjective Progress Notes Subjective Only compaint is pain at the drain site. Tolerating diet. Physical Exam Vital Signs Date Time Temp Pulse Resp B/P (MAP) Pulse Ox O2 Delivery O2 Flow Rate FiO2 05/17/17 04:15 98.0 65 16 107/71 (83) 96 Room Air General Appearance: Alert, Awake, No Acute Distress, Afebrile GI: Other (Soft, TTP around the drain) Extremities: Warm, Perfused Result Diagram: 05/17/17 0600 05/17/17 0600 Assessment and Plan Problems: (1) Postoperative fever Status: Acute Assessment & Plan: 05/15/17: Will admit for pain control and IV antibiotics. The CT scanner as close to be back up and running here in the next couple of hours. We'll get a CT scan of her abdomen and pelvis after the CT scan is functional. We'll send stool for C. difficile. We will keep her nothing by mouth until the CT scan is completed. We'll control her pain with a CHAINSTITCH HEMMER and IV Tylenol. I have explained this plan to her and she seems somewhat relieved and is agreeable with proceeding with this plan. 05/16/17: Doing well. No fevers overnight. CT reveals a growing abscess in her gallbladder fossa. Will have the abscess drained via CT guidance today. No BM yet so although she had diarrhea prior to admission she has not since admission and so no sample provided for C. diff. O/W CCM. 05/17/17: Doing well. Percutaneous drain placed yesterday under CT guidance. It is putting out a fair amount of bile. Her labs and vitals all looked good. LFTs are coming down to normal. White count is normal. Afebrile. We'll get a HIDA scan today to look for an active bile leak. If it is from the gallbladder fossa then we'll leave the drain in for several weeks and let a tract mature but if it looks like it's coming from the cystic duct stump then she may need an ERCP with stent placement. I have explained this to her and she seems agreeable with this plan. (2) S/P cholecystectomy Status: Chronic Condition Stable. Time Spent: < 30 min Exam Sepsis Risk: No Definite Risk KEKE ELIZABETH MD May 17, 2017 08:44
[2017-05-17 09:06] VITALS: BP 114/71
[2017-05-17] MEDS: PANTOPRAZOLE SOD 40 MG IV VIAL IVP SCH (09:09)
[2017-05-17] MEDS: ERTAPENEM(*) 1 GM VIAL 1 GM in NS(*) 0.9% 100 ML ADDVANT BAG 100 ML IVPB SCH (09:10)
[2017-05-17 11:04] VITALS: BP 104/76
[2017-05-17] MEDS: HYDROmorphone PCA 6 MG/30 ML IV PRN (14:26)
--- NOTE | 2017-05-17 14:44 | RADIOLOGY IMAGING REPORT ---
FACILITY: [facility] PATIENT NAME: Lisseth Adame : 1970 MR: [id number] V: [id number] EXAM DATE: ORDERING PHYSICIAN: KEKE ELIZABETH TECHNOLOGIST: Location: [facility] Patient: Lisseth Adame : 1970 Visit/Account:[id number] Date of Sevice: 05/17/2017 EXAMINATION: Hepatobiliary scan 05/17/2017 8:26 AM HISTORY: ? bile leak after lap kp TECHNIQUE: Patient was administered 7.4 mCi technetium 99m mebrofenin intravenously. Anterior imagin g was done over the abdomen out to 1 hour. COMPARISON: CT 05/16/2017 FINDINGS: Liver uptake of radiotracer is normal. Biliary excretion occurs without delay. Contrast extends through the CBD into small bowel without significant obstruction. Excreted radiotracer is collected in the angelica hepatis area and tracer is seen tracking along the pat ient's biliary drain inferiorly on the right. There is increasingly intense focal localization in th e angelica hepatus. There is no free intraperitoneal spill tracking along Morison's pouch or the right flank. IMPRESSION: Progressive collection of excreted radiotracer in the angelica hepatis more than would be ex pected simply by radiotracer contained within the coils of the indwelling biliary drain and more sugg estive of a biliary leak. There is no free intraperitoneal spill along Morison's pouch or the right paracolic gutter. Report Dictated By: Jose Seay MD at 05/17/2017 2:35 PM Report E-Signed By: Jose Seay MD at 05/17/2017 2:40 PM WSN:[email or web address]
[2017-05-17 19:19] VITALS: BP 110/74
[2017-05-17 22:54] VITALS: BP 118/80
[2017-05-18] MEDS: ACETAMINOPHEN(*)1000 MG/100 ML 100 ML IVPB SCH ×2 (00:50→06:35)
[2017-05-18 06:06] LABS: PLATELET COUNT, AUTOMATED 461 K/uL (150-450)
[2017-05-18 07:53] VITALS: BP 129/84
[2017-05-18] MEDS: PANTOPRAZOLE SOD 40 MG IV VIAL IVP SCH (08:52)
[2017-05-18] MEDS: ERTAPENEM(*) 1 GM VIAL 1 GM in NS(*) 0.9% 100 ML ADDVANT BAG 100 ML IVPB SCH (08:52)
[2017-05-18] MEDS ORDERED: CYANOCOBALAMIN 1000 MCG TAB PO SCH (11:00)
[2017-05-18] MEDS ORDERED: HYDROmorphone HCL 2 MG/ML SDV IVP PRN (11:00)
--- NOTE | 2017-05-18 11:03 | General Surgery Progress Note ---
Subjective Progress Notes Subjective Only complaint is pain at the drain site. Physical Exam Vital Signs Date Time Temp Pulse Resp B/P (MAP) Pulse Ox O2 Delivery O2 Flow Rate FiO2 05/18/17 07:53 98.7 59 16 129/84 (99) 95 Room Air Intake and Output 05/19/17 07:00 Intake Total 1727 ml Output Total 75 ml Balance 1652 ml Intake Oral 120 ml IV Total 1607 ml Output Drainage Total 75 ml # Voids 2 # Bowel Movements 1 General Appearance: Alert, Awake, No Acute Distress, Afebrile GI: Other (Soft, RUQ TTP around drain) Extremities: Warm, Perfused Result Diagram: 05/18/17 0505/18/17 0525 Assessment and Plan Problems: (1) Postoperative fever Status: Acute Assessment & Plan: 05/15/17: Will admit for pain control and IV antibiotics. The CT scanner as close to be back up and running here in the next couple of hours. We'll get a CT scan of her abdomen and pelvis after the CT scan is functional. We'll send stool for C. difficile. We will keep her nothing by mouth until the CT scan is completed. We'll control her pain with a WINDER TENDER and IV Tylenol. I have explained this plan to her and she seems somewhat relieved and is agreeable with proceeding with this plan. 05/16/17: Doing well. No fevers overnight. CT reveals a growing abscess in her gallbladder fossa. Will have the abscess drained via CT guidance today. No BM yet so although she had diarrhea prior to admission she has not since admission and so no sample provided for C. diff. O/W CCM. 05/17/17: Doing well. Percutaneous drain placed yesterday under CT guidance. It is putting out a fair amount of bile. Her labs and vitals all looked good. LFTs are coming down to normal. White count is normal. Afebrile. We'll get a HIDA scan today to look for an active bile leak. If it is from the gallbladder fossa then we'll leave the drain in for several weeks and let a tract mature but if it looks like it's coming from the cystic duct stump then she may need an ERCP with stent placement. I have explained this to her and she seems agreeable with this plan. 05/18/17: Doing well. Drain seems to be putting out less. Labs all returning to normal. Will convert meds to PO including PO abx in accordance with culture and sensitivities (levaquin). If she does well then home this evening or tomorrow morning. (2) Abscess after procedure Status: Acute (3) S/P cholecystectomy Status: Chronic Condition Stable. Time Spent: < 30 min Exam Sepsis Risk: No Definite Risk KEKE ELIZABETH MD May 18, 2017 11:03
[2017-05-18] MEDS: LEVOFLOXACIN 500 MG TAB PO SCH (11:33)
[2017-05-18 11:34] VITALS: BP 118/81
[2017-05-18] MEDS: busPIRone HCL 5 MG TAB PO SCH ×2 (14:07→21:05)
[2017-05-18 15:03] VITALS: BP 106/85
[2017-05-18] MEDS ORDERED: PER PO (16:56)
[2017-05-18] MEDS ORDERED: LEVO-85 PO (16:56)
[2017-05-18 19:16] VITALS: BP 119/78
[2017-05-18] MEDS: CRANBERRY EXTRACT 1 EACH CAP 1 EACH CAP PO SCH (21:00)
[2017-05-18] MEDS ORDERED: CRANBERRY EXTRACT PO SCH (21:00)
[2017-05-18] MEDS ORDERED: DEXTROAMPHETAMINE/AMPHETAMINE 20 MG TABLET PO SCH (21:00)
[2017-05-18] MEDS ORDERED: PARoxetine HCL 20 MG TAB PO SCH (21:00)
[2017-05-18] MEDS: CALCIUM OYSTER SHELL 500MG TAB PO SCH (21:05)
[2017-05-18] MEDS: OMEGA-3 500 MG CAP PO SCH (21:05)
[2017-05-18] MEDS: ASCORBIC ACID 500 MG TAB PO SCH (21:05)
[2017-05-18 23:18] VITALS: BP 114/72
[2017-05-19 03:26] VITALS: BP 117/79
[2017-05-19 05:59] LABS: PLATELET COUNT, AUTOMATED 523 K/uL (150-450)
[2017-05-19 07:06] VITALS: BP 113/75
[2017-05-19] MEDS ORDERED: DEXTROAMPHETAMINE/AMPHETAMINE 20 MG TABLET PO SCH (08:00)
[2017-05-19] MEDS: ASCORBIC ACID 500 MG TAB PO SCH (08:56)
[2017-05-19] MEDS: CALCIUM OYSTER SHELL 500MG TAB PO SCH (08:56)
[2017-05-19] MEDS: CRANBERRY EXTRACT 1 EACH CAP 1 EACH CAP PO SCH (08:58)
[2017-05-19] MEDS ORDERED: ESTRADIOL 0.5 MG TABLET PO SCH (09:00)
[2017-05-19] MEDS ORDERED: CHOLECALCIFEROL 1000 UNIT TAB PO SCH (09:00)
[2017-05-19] MEDS ORDERED: PANTOPRAZOLE SOD 40 MG TABEC PO SCH (09:00)
[2017-05-19] MEDS ORDERED: POLYSACCHARIDE IRON COM 150 MG PO SCH (09:00)
[2017-05-19] MEDS ORDERED: PATIENT'S OWN MED PO SCH (09:00)
[2017-05-19] MEDS: busPIRone HCL 5 MG TAB PO SCH (09:07)
[2017-05-19] MEDS: OMEGA-3 500 MG CAP PO SCH (09:07)
--- NOTE | 2017-05-19 09:19 | General Surgery Progress Note ---
Subjective Progress Notes Subjective no complaints of pain, tolerating diet ambulating Physical Exam Vital Signs Date Time Temp Pulse Resp B/P (MAP) Pulse Ox O2 Delivery O2 Flow Rate FiO2 05/19/17 07:06 94 Room Air 05/19/17 07:06 98.5 79 16 113/75 (88) General Appearance: Alert, Awake, No Acute Distress GI: Soft and Non-Tender (drain with 50 cc green serous fluid overnight) Result Diagram: 05/19/17 0520 05/19/17 0520 Assessment and Plan Problems: (1) Postoperative fever Status: Acute Assessment & Plan: 05/15/17: Will admit for pain control and IV antibiotics. The CT scanner as close to be back up and running here in the next couple of hours. We'll get a CT scan of her abdomen and pelvis after the CT scan is functional. We'll send stool for C. difficile. We will keep her nothing by mouth until the CT scan is completed. We'll control her pain with a SALES SERVICE MANAGER and IV Tylenol. I have explained this plan to her and she seems somewhat relieved and is agreeable with proceeding with this plan. 05/16/17: Doing well. No fevers overnight. CT reveals a growing abscess in her gallbladder fossa. Will have the abscess drained via CT guidance today. No BM yet so although she had diarrhea prior to admission she has not since admission and so no sample provided for C. diff. O/W CCM. 05/17/17: Doing well. Percutaneous drain placed yesterday under CT guidance. It is putting out a fair amount of bile. Her labs and vitals all looked good. LFTs are coming down to normal. White count is normal. Afebrile. We'll get a HIDA scan today to look for an active bile leak. If it is from the gallbladder fossa then we'll leave the drain in for several weeks and let a tract mature but if it looks like it's coming from the cystic duct stump then she may need an ERCP with stent placement. I have explained this to her and she seems agreeable with this plan. 05/18/17: Doing well. Drain seems to be putting out less. Labs all returning to normal. Will convert meds to PO including PO abx in accordance with culture and sensitivities (levaquin). If she does well then home this evening or tomorrow morning. 05/19/17 improving, however still a little too much drainage to pull drain. home with drain (2) Abscess after procedure Status: Acute (3) S/P cholecystectomy Status: Chronic Exam Sepsis Risk: No Definite Risk ADRIENNE CORNELIUS MD May 19, 2017 09:19
--- NOTE | 2017-05-19 09:22 | Short(Outpt) Discharge Summary ---
KEKE ELIZABETH MD 05/18/17 1298: Discharge Summary Reason for Hosp/Final Diag: (1) Postoperative fever Status: Acute Hospital Course & Plan: 05/15/17: Will admit for pain control and IV antibiotics. The CT scanner as close to be back up and running here in the next couple of hours. We'll get a CT scan of her abdomen and pelvis after the CT scan is functional. We'll send stool for C. difficile. We will keep her nothing by mouth until the CT scan is completed. We'll control her pain with a INSULATION MACHINE OPERATOR and IV Tylenol. I have explained this plan to her and she seems somewhat relieved and is agreeable with proceeding with this plan. 05/16/17: Doing well. No fevers overnight. CT reveals a growing abscess in her gallbladder fossa. Will have the abscess drained via CT guidance today. No BM yet so although she had diarrhea prior to admission she has not since admission and so no sample provided for C. diff. O/W CCM. 05/17/17: Doing well. Percutaneous drain placed yesterday under CT guidance. It is putting out a fair amount of bile. Her labs and vitals all looked good. LFTs are coming down to normal. White count is normal. Afebrile. We'll get a HIDA scan today to look for an active bile leak. If it is from the gallbladder fossa then we'll leave the drain in for several weeks and let a tract mature but if it looks like it's coming from the cystic duct stump then she may need an ERCP with stent placement. I have explained this to her and she seems agreeable with this plan. 05/18/17: Doing well. Drain seems to be putting out less. Labs all returning to normal. Will convert meds to PO including PO abx in accordance with culture and sensitivities (levaquin). If she does well then home this evening or tomorrow morning. (2) Abscess after procedure Status: Acute (3) S/P cholecystectomy Status: Chronic Departure Discharge to: Home, Self Care Discharge Instructions Home Meds Active Scripts Oxycodone/Acetaminophen (OXYCODONE/ACETAMINOPHEN 5MG/325 MG) 5 Mg/325 Mg Tab, 1- 2 TAB PO Q4H Y for PAIN, #30 TAB 0 Refills Prov:KEKE ELIZABETH MD 05/18/17 Levofloxacin 500 Mg Tab (LEVAQUIN 500 MG TAB) 500 Mg Tablet, 1 TAB PO QDAY@10, # 10 TAB 0 Refills Prov:KEKE ELIZABETH MD 05/18/17 Docusate Sodium (COLACE) 100 Mg Capsule, 1 CAP PO BID, #30 CAP 0 Refills TAKE WITH A FULL GLASS OF WATER Prov:KEKE ELIZABETH MD 05/02/17 Reported Medications Estradiol (ESTRADIOL) 0.5 Mg Tablet, 1 TAB PO QDAY 05/15/17 Cranberry Extract (CRANBERRY) 425 Mg Capsule, 2 TAB PO BID, CAPSULE 04/25/17 Albuterol Sulfate (VENTOLIN HFA) 18 Gm Inh, 2 PUFF INH BID, INH 04/17/17 Paroxetine Hcl (PAROXETINE HCL) 30 Mg Tablet, 60 MG PO QHS 04/17/17 Multivitamin W/Iron, Minerals (FLINTSTONES COMPLETE) 1 Each Tab.chew, 2 EACH PO DAILY, TAB.CHEW 10/11/16 Iron Polysaccharides Complex (POLYSACCHARIDE IRON 150) 150 Mg Capsule, 27 MG PO QDAY, CAPSULE 10/11/16 Cyanocobalamin (Vitamin B-12) (Vitamin B12) Unknown Strength Tablet, 1000 MCG PO QWEEK 03/16/15 Ascorbic Acid (VITAMIN C) 500 Mg Tab.chew, 500 MG PO BID, TAB.CHEW 03/16/15 Cholecalciferol (Vitamin D3) (VITAMIN D-3) 2,000 Unit Capsule, 5000 UNIT PO QDAY , CAPSULE 03/12/15 [place]-3 Fatty Acids/Fish Oil (OMEGA 3 FISH OIL SOFTGEL) 1 Each Capsule.dr, 1 EACH PO BID 03/12/15 Diazepam (DIAZEPAM) 5 Mg Tablet, 5 MG PO BID Y for ANXIETY, #15 TAB 07/02/14 Amphet Asp/Amphet/D-Amphet (ADDERALL 20 MG TABLET) 20 Mg Tablet, 20 MG PO BIDBL 07/02/14 Omeprazole (OMEPRAZOLE) 40 Mg Capsule.dr, 40 MG PO BID 06/24/13 Calcium (Calcium) 500 Mg Tablet, 500 MG PO BID, 0 Refills 02/06/11 Buspirone Hcl (Buspar) 10 Mg Tablet, 10 MG PO BID, 0 Refills 02/06/11 Discontinued Reported Medications Estradiol (ESTRADIOL 0.05 MG) 1 Each Patch.tdwk, 1 EACH TD DAILY, PATCH.WK 08/30/16 Discontinued Scripts Amoxicillin/Pot Clav 875-125 Mg Tab (AUGMENTIN 875-125 TABLET) 1 Each Tablet, 1 TAB PO BID, #14 TAB 0 Refills Prov:KEKE ELIZABETH MD 05/10/17 Oxycodone Hcl/Acetaminophen (PERCOCET 5-325 MG TABLET) 1 Each Tablet, 1 EACH PO Q4-6H Y for PAIN, #10 TAB Prov:KEKE ELIZABETH MD 05/10/17 Follow up Referrals: General Surgery - 05/27/17 @ Surgery, General with Keke Elizabeth Md You have a follow up appointment scheduled with Dr. Elizabeth on 05/27/17, at 1:00pm. Diet: Regular Activity: As Tolerated ADRIENNE CORNELIUS MD 05/19/17 0922: Discharge Summary Reason for Hosp/Final Diag: (1) Postoperative fever Status: Acute Hospital Course & Plan: 05/15/17: Will admit for pain control and IV antibiotics. The CT scanner as close to be back up and running here in the next couple of hours. We'll get a CT scan of her abdomen and pelvis after the CT scan is functional. We'll send stool for C. difficile. We will keep her nothing by mouth until the CT scan is completed. We'll control her pain with a INSULATION MACHINE OPERATOR and IV Tylenol. I have explained this plan to her and she seems somewhat relieved and is agreeable with proceeding with this plan. 05/16/17: Doing well. No fevers overnight. CT reveals a growing abscess in her gallbladder fossa. Will have the abscess drained via CT guidance today. No BM yet so although she had diarrhea prior to admission she has not since admission and so no sample provided for C. diff. O/W [facility]. 05/17/17: Doing well. Percutaneous drain placed yesterday under CT guidance. It is putting out a fair amount of bile. Her labs and vitals all looked good. LFTs are coming down to normal. White count is normal. Afebrile. We'll get a HIDA scan today to look for an active bile leak. If it is from the gallbladder fossa then we'll leave the drain in for several weeks and let a tract mature but if it looks like it's coming from the cystic duct stump then she may need an ERCP with stent placement. I have explained this to her and she seems agreeable with this plan. 05/18/17: Doing well. Drain seems to be putting out less. Labs all returning to normal. Will convert meds to PO including PO abx in accordance with culture and sensitivities (levaquin). If she does well then home this evening or tomorrow morning. 05/19/17 improving, however still a little too much drainage to pull drain. home with drain Departure Discharge to: Home Discharge Instructions Home Meds Active Scripts Oxycodone/Acetaminophen (OXYCODONE/ACETAMINOPHEN 5MG/325 MG) 5 Mg/325 Mg Tab, 1- 2 TAB PO Q4H Y for PAIN, #30 TAB 0 Refills Prov:KEKE ELIZABETH MD 05/18/17 Levofloxacin 500 Mg Tab (LEVAQUIN 500 MG TAB) 500 Mg Tablet, 1 TAB PO QDAY@10, # 10 TAB 0 Refills Prov:KEKE ELIZABETH MD 05/18/17 Docusate Sodium (COLACE) 100 Mg Capsule, 1 CAP PO BID, #30 CAP 0 Refills TAKE WITH A FULL GLASS OF WATER Prov:KEKE ELIZABETH MD 05/02/17 Reported Medications Estradiol (ESTRADIOL) 0.5 Mg Tablet, 1 TAB PO QDAY 05/15/17 Cranberry Extract (CRANBERRY) 425 Mg Capsule, 2 TAB PO BID, CAPSULE 04/25/17 Albuterol Sulfate (VENTOLIN HFA) 18 Gm Inh, 2 PUFF INH BID, INH 04/17/17 Paroxetine Hcl (PAROXETINE HCL) 30 Mg Tablet, 60 MG PO QHS 04/17/17 Multivitamin W/Iron, Minerals (FLINTSTONES COMPLETE) 1 Each Tab.chew, 2 EACH PO DAILY, TAB.CHEW 10/11/16 Iron Polysaccharides Complex (POLYSACCHARIDE IRON 150) 150 Mg Capsule, 27 MG PO QDAY, CAPSULE 10/11/16 Cyanocobalamin (Vitamin B-12) (Vitamin B12) Unknown Strength Tablet, 1000 MCG PO QWEEK 03/16/15 Ascorbic Acid (VITAMIN C) 500 Mg Tab.chew, 500 MG PO BID, TAB.CHEW 03/16/15 Cholecalciferol (Vitamin D3) (VITAMIN D-3) 2,000 Unit Capsule, 5000 UNIT PO QDAY , CAPSULE 12/5/15 [place]-3 Fatty Acids/Fish Oil (OMEGA 3 FISH OIL SOFTGEL) 1 Each Capsule.dr, 1 EACH PO BID 03/12/15 Diazepam (DIAZEPAM) 5 Mg Tablet, 5 MG PO BID Y for ANXIETY, #15 TAB 07/02/14 Amphet Asp/Amphet/D-Amphet (ADDERALL 20 MG TABLET) 20 Mg Tablet, 20 MG PO BIDBL 07/02/14 Omeprazole (OMEPRAZOLE) 40 Mg Capsule.dr, 40 MG PO BID 06/24/13 Calcium (Calcium) 500 Mg Tablet, 500 MG PO BID, 0 Refills 02/06/11 Buspirone Hcl (Buspar) 10 Mg Tablet, 10 MG PO BID, 0 Refills 02/06/11 Discontinued Reported Medications Estradiol (ESTRADIOL 0.05 MG) 1 Each Patch.tdwk, 1 EACH TD DAILY, PATCH.WK 08/30/16 Discontinued Scripts Amoxicillin/Pot Clav 875-125 Mg Tab (AUGMENTIN 875-125 TABLET) 1 Each Tablet, 1 TAB PO BID, #14 TAB 0 Refills Prov:KEKE ELIZABETH MD 05/10/17 Oxycodone Hcl/Acetaminophen (PERCOCET 5-325 MG TABLET) 1 Each Tablet, 1 EACH PO Q4-6H Y for PAIN, #10 TAB Prov:KEKE ELIZABETH MD 05/10/17 Follow up Referrals: General Surgery - 05/27/17 @ Surgery, General with Keke Elizabeth Md You have a follow up appointment scheduled with Dr. Elizabeth on 05/27/17, at 1:00pm. Diet: Regular Activity: As Tolerated Special Instructions: empty drain prn, sponge bath KEKE ELIZABETH MD May 18, 2017 16:58 ADRIENNE CORNELIUS MD May 19, 2017 09:22
[2017-05-19] MEDS: LEVOFLOXACIN 500 MG TAB PO SCH (10:32)
[2017-05-19] MEDS ORDERED: PARoxetine HCL 20 MG TAB PO SCH (21:00)
== END 2017-05-19 10:35 | disposition home or self-care (01) | DRG 862 ==
LOC: ER 09:34 → MED 11:44
PROVIDERS: ADMIT Surgery; ATTEND Surgery
PROC: 0D9W30Z Drainage of Peritoneum with Drainage Device, Percutaneous Approach (ICD-10-PCS; principal; 2017-05-16)
DX: T81.4XXA Infection following a procedure, initial encounter (principal); K65.1 Peritoneal abscess; F41.8 Other specified anxiety disorders; F17.210 Nicotine dependence, cigarettes, uncomplicated; D50.9 Iron deficiency anemia, unspecified; Y83.6 Removal of other organ (partial) (total) as the cause of abnormal reaction of the patient, or of later complication, without mention of misadventure at the time of the procedure; Y73.3 Surgical instruments, materials and gastroenterology and urology devices (including sutures) associated with adverse incidents; Z88.8 Allergy status to other drugs, medicaments and biological substances; Z86.711 Personal history of pulmonary embolism; Z98.84 Bariatric surgery status; Z90.49 Acquired absence of other specified parts of digestive tract; Z90.710 Acquired absence of both cervix and uterus; Z85.528 Personal history of other malignant neoplasm of kidney
CPT/HCPCS: 36415; 74178; 75989; 78226; 81001; 82040; 82247; 82248; 82310; 82374; 82435; 82565; 82947; 83690; 84075; 84132; 84155; 84295; 84450; 84460; 84520; 85025; 87071; 87073; 87077; 87186; 87205; 99285; C9113; J0131; J1170; J1335; J2060; J7030; J7050; Q9967

== ENCOUNTER 2017-07-15 16:07 | Emergency (ER) | payer MEDICAID ==
[2017-05-16 17:01] VITALS: Wt 74.8 kg
[~2017-07-15 16:07] MED LIST changes: +ESTR0.5T16 PO; +LEVO-85 PO
--- NOTE | 2017-07-15 16:19 | ER Report ---
History and Physical Time Seen By MD: 16:17 Hx. of Stated Complaint: pt reports she is out of her adderall- can fill on . reports a lot of stress the past few days. pt states she took a flexeril and diazepam at home HPI/ROS CHIEF COMPLAINT: neck pain HISTORY OF PRESENT ILLNESS: PT states that she is here for evaluation of left sided neck pain that causes sharp pains to her left shoulder if she turns her neck. PT states that she is also very anxious and upset. Pt ran out of her adderall and can not have it filled until . Pt states she is on the adderall for chronic fatigue. PT states that she knows she has a herniated disc in her neck but usualy she is okay. Pain on left side of neck that is worse with movement. Pt has intermittent pain radiating to his left shoulder but not down the arm. no weakness. Pt took flexeril 10mg an hour ago and valium 5mg for the anxiety and neck symptoms. REVIEW OF SYSTEMS: Constitutional: No fever, no chills. Eyes: No discharge. ENT: No sore throat. Cardiovascular: No chest pain, no palpitations. Respiratory: No cough, no shortness of breath. Gastrointestinal: No abdominal pain, no vomiting. Genitourinary: No hematuria. Musculoskeletal: + neck pain Skin: No rashes. Neurological: +occasional headache, sharp "zingers" from neck to shoulder on L Psych: anxiety Allergies: Coded Allergies: bupropion (Verified Allergy, Severe, RASH, HIVES, SWELLING, 07/15/17) Home Meds Active Scripts Methylprednisolone (METHYLPREDNISOLONE) 4 Mg Tab.ds.pk, 4 MG PO DIRECTED, #1 TAB Prov:BRENDA LALA DO 07/15/17 Oxycodone/Acetaminophen (OXYCODONE/ACETAMINOPHEN 5MG/325 MG) 5 Mg/325 Mg Tab, 1- 2 TAB PO Q4H Y for PAIN, #30 TAB 0 Refills Prov:KEKE ELIZABETH MD 05/18/17 Levofloxacin 500 Mg Tab (LEVAQUIN 500 MG TAB) 500 Mg Tablet, 1 TAB PO QDAY@10, # 10 TAB 0 Refills Prov:KEKE ELIZABETH MD 05/18/17 Docusate Sodium (COLACE) 100 Mg Capsule, 1 CAP PO BID, #30 CAP 0 Refills TAKE WITH A FULL GLASS OF WATER Prov:KEKE ELIZABETH MD 05/02/17 Reported Medications Estradiol (ESTRADIOL) 0.5 Mg Tablet, 1 TAB PO QDAY 05/15/17 Cranberry Extract (CRANBERRY) 425 Mg Capsule, 2 TAB PO BID, CAPSULE 04/25/17 Albuterol Sulfate (VENTOLIN HFA) 18 Gm Inh, 2 PUFF INH BID, INH 04/17/17 Paroxetine Hcl (PAROXETINE HCL) 30 Mg Tablet, 60 MG PO QHS 04/17/17 Multivitamin W/Iron, Minerals (FLINTSTONES COMPLETE) 1 Each Tab.chew, 2 EACH PO DAILY, TAB.CHEW 10/11/16 Iron Polysaccharides Complex (POLYSACCHARIDE IRON 150) 150 Mg Capsule, 27 MG PO QDAY, CAPSULE 10/11/16 Cyanocobalamin (Vitamin B-12) (Vitamin B12) Unknown Strength Tablet, 1000 MCG PO QWEEK 03/16/15 Ascorbic Acid (VITAMIN C) 500 Mg Tab.chew, 500 MG PO BID, TAB.CHEW 03/16/15 Cholecalciferol (Vitamin D3) (VITAMIN D-3) 2,000 Unit Capsule, 5000 UNIT PO QDAY , CAPSULE 03/12/15 [place]-3 Fatty Acids/Fish Oil (OMEGA 3 FISH OIL SOFTGEL) 1 Each Capsule.dr, 1 EACH PO BID 03/12/15 Diazepam (DIAZEPAM) 5 Mg Tablet, 5 MG PO BID Y for ANXIETY, #15 TAB 07/02/14 Amphet Asp/Amphet/D-Amphet (ADDERALL 20 MG TABLET) 20 Mg Tablet, 20 MG PO BIDBL 07/02/14 Omeprazole (OMEPRAZOLE) 40 Mg Capsule.dr, 40 MG PO BID 06/24/13 Calcium (Calcium) 500 Mg Tablet, 500 MG PO BID, 0 Refills 02/06/11 Buspirone Hcl (Buspar) 10 Mg Tablet, 10 MG PO BID, 0 Refills 02/06/11 Past Medical/Surgical History pmhx: anxiety, depression, chronic fatigue, transitional cell ca, PE, iron def anemia Pshx: nephrectomy, gastric bypass, hyster Hx Smoking: Yes (last was 24 hrs ago; 1-10 per day) Smoking Status: Current: Every Day Smoker, Light Tobacco Smoker Exposure to Second Hand Smoke?: Yes Hx Substance Use Disorder: No (marijuana last use several weeks ago) Hx Alcohol Use: No Constitutional Vital Sign - Last 24 Hours 07/15/17 07/15/17 07/15/17 07/15/17 16:07 16:12 16:12 16:22 Temp 97.6 Pulse ??? 78 77 Resp 16 B/P (MAP) 151/95 (113) 151/95 Pulse Ox 96 97 O2 Delivery Room Air 07/15/17 07/15/17 07/15/17 07/15/17 16:30 16:37 16:55 17:00 Pulse 68 B/P (MAP) 123/80 (94) 109/79 (89) 108/80 (89) Pulse Ox 93 07/15/17 07/15/17 07/15/17 07/15/17 17:05 17:10 17:15 17:20 Pulse 66 67 58 69 Pulse Ox 94 93 94 97 07/15/17 17:25 Pulse 63 Pulse Ox 92 Physical Exam General Appearance: The patient is alert, has no immediate need for airway protection and no signs of toxicity. Eyes: Pupils equal and round no pallor or injection, EOMI ENT: no pharyngeal erythema or exudates, Mucous membranes are moist Respiratory: There are no retractions, lungs are clear to auscultation. Cardiovascular: Regular rate and rhythm. pulses are equal and symmetrical Neurological: Cranial nerves II-XII grossly intact, no sensory or motor loss, upper strength 5/5 and symmetrical b/l Skin: Warm and dry, no rashes. Musculoskeletal: Neck is supple non tender midline, + tenderness base of down paravertebral C1-6 and along trapezious on left Extremities are nontender, non swollen and have full range of motion, DIFFERENTIAL DIAGNOSIS: After history and physical exam differential diagnosis was considered for cervical radiculopathy secondary to muscle spasm, arthritis, facet narrowing, herniated disc Medical Decision Making EKG/Imaging Imaging degenerative change at 5-6 disc space ED Course/Re-evaluation ED Course will xray. PT already appears sedated with the flexeril and valium. will give a one time dose of toradol 30mg IM. Pt will require follow up with pcp if symptoms persist and may require MRI as outpt. Decision to Disposition Date: Jul 15, 2017 Decision to Disposition Time: 17:28 Depart Departure Latest Vital Signs Vital Signs Date Time Temp Pulse Resp B/P (MAP) Pulse Ox O2 Delivery O2 Flow Rate FiO2 4/9/18 17:25 63 92 07/15/17 17:00 108/80 (89) 07/15/17 16:12 97.6 16 Room Air Impression: Primary Impression: Cervical radicular pain Additional Impression: Degenerative arthritis of cervical spine Condition: Condition Unchanged Disposition: HOME OR SELF-CARE Referrals: CORINNE BAH KOSHER SEALER (PCP) LANE BOYKIN MD 5 Days New Scripts Methylprednisolone (METHYLPREDNISOLONE) 4 Mg Tab.ds.pk 4 MG PO DIRECTED, #1 TAB Prov: BRENDA LALA DO 07/15/17 Patient Instructions: Cervical Radiculopathy (GEN) Additional Instructions: Follow up with orthopedics for further evaluation. May use your valium 5mg every 6 hours as needed for spasms or your flexeril 10mg every 8 hours. Do not use both. I did send a steriod script to your pharmacy which you can fill if you continue to have discomfort. Wear your soft collar as needed for comfort. Problem Qualifiers Additional Impression: Degenerative arthritis of cervical spine Spinal osteoarthritis complication: with radiculopathy Qualified Codes: M47.22 - Other spondylosis with radiculopathy, cervical region BRENDA LALA DO Jul 15, 2017 16:19
[2017-07-15] MEDS ORDERED: KETOROLAC 30 MG/ML VIAL IM ONE (16:30)
[2017-07-15 17:00] VITALS: BP 108/80
--- NOTE | 2017-07-15 17:13 | RADIOLOGY IMAGING REPORT ---
[place] [facility] [place] NAME: Lisseth Adame : 1970 MR: [id number] V: [id number] EXAM DATE: ORDERING PHYSICIAN: BRENDA LALA TECHNOLOGIST: Location: [facility] Patient: Lisseth Adame : 1970 Visit/Account:[id number] Date of Sevice: 07/15/2017 EXAMINATION: Cervical Spine 3 views HISTORY: Left lateral neck pain. COMPARISON: None. FINDINGS: No radiographic evidence of acute fracture or subluxation in the cervical spine. Normal alignment. Vertebral body height is maintained. Mild degenerative changes at C5-C6, with mild disc space narrowing and endplate osteophyte formation. Disc spaces are otherwise preserved along the cervical spine. Posterior elements appear radiographic ally intact. The dens appears intact. No prevertebral soft tissue swelling. IMPRESSION: 1. No acute osseous findings along the cervical spine. Normal alignment. 2. Mild degenerative changes at the C5-C6 disc space. Report Dictated By: Maicol Cisneros MD at 07/15/2017 5:08 PM Report E-Signed By: Maicol Cisneros MD at 07/15/2017 5:10 PM [id number]
[2017-07-15] MEDS ORDERED: METH4TAB66 PO (17:26)
== END 2017-07-15 17:30 | disposition home or self-care (01) ==
LOC: ER 16:14
DX: M47.22 Other spondylosis with radiculopathy, cervical region (principal)
CPT/HCPCS: 72040; 96372; 99283; J1885; L0120

== ENCOUNTER 2017-10-06 16:04 | Emergency (ER) | payer MEDICAID ==
[2017-05-16 17:01] VITALS: Wt 75.0 kg
[~2017-10-06 16:04] MED LIST changes: -DIA5 PO; +TRAZ-156 PO; -TRAZ50TA34 PO
--- NOTE | 2017-10-06 16:20 | ER Report ---
History and Physical Time Seen By MD: 16:19 Hx. of Stated Complaint: feels like she's withdrawling from her adderall. last dose was sat. currently having an axiety attack. went off adderall because she's having spinal surgery on the HPI/ROS CHIEF COMPLAINT: Off her adderall HISTORY OF PRESENT ILLNESS: Pt is on Adderall for chronic fatigue. Pt adderall was stopped for spinal surgery to be done on the . Pt states that since she stopped her adderall she has been very anxious and jittery. Pt today was out walking the dog today and started having a panic attack. pt states she felt anxious, sob could not stop crying. State she is feeling slightly better since arrived buts still tearful. Pt is on valium bid and 60 pills were last prescribed 09/09/2017. Pt stats that she took her last one yesterday and ran out. Pt feels the valium was helping her feel better since the adderall stopped. Called pharmacist but was told that they can not fill it without a doctor ok due to its a few days early. Pt is not suicidal. not homicidal REVIEW OF SYSTEMS: Constitutional: No fever, no chills. Eyes: No discharge. ENT: No sore throat. Cardiovascular: No chest pain, no palpitations. Respiratory: No cough, no shortness of breath. Gastrointestinal: No abdominal pain, no vomiting. Genitourinary: No hematuria. Musculoskeletal: + cchri Skin: No rashes. Neurological: No headache. Psych: anxious, Allergies: Coded Allergies: bupropion (Verified Allergy, Severe, RASH, HIVES, SWELLING, 10/06/17) Home Meds Active Scripts Methylprednisolone (METHYLPREDNISOLONE) 4 Mg Tab.ds.pk, 4 MG PO DIRECTED, #1 TAB Prov:BRENDA LALA DO 07/15/17 Oxycodone/Acetaminophen (OXYCODONE/ACETAMINOPHEN 5MG/325 MG) 5 Mg/325 Mg Tab, 1- 2 TAB PO Q4H Y for PAIN, #30 TAB 0 Refills Prov:KEKE ELIZABETH MD 05/18/17 Levofloxacin 500 Mg Tab (LEVAQUIN 500 MG TAB) 500 Mg Tablet, 1 TAB PO QDAY@10, # 10 TAB 0 Refills Prov:KEKE ELIZABETH MD 05/18/17 Docusate Sodium (COLACE) 100 Mg Capsule, 1 CAP PO BID, #30 CAP 0 Refills TAKE WITH A FULL GLASS OF WATER Prov:KEKE ELIZABETH MD 05/02/17 Reported Medications Estradiol (ESTRADIOL) 0.5 Mg Tablet, 1 TAB PO QDAY 05/15/17 Cranberry Extract (CRANBERRY) 425 Mg Capsule, 2 TAB PO BID, CAPSULE 04/25/17 Albuterol Sulfate (VENTOLIN HFA) 18 Gm Inh, 2 PUFF INH BID, INH 04/17/17 Paroxetine Hcl (PAROXETINE HCL) 30 Mg Tablet, 60 MG PO QHS 04/17/17 Multivitamin W/Iron, Minerals (FLINTSTONES COMPLETE) 1 Each Tab.chew, 2 EACH PO DAILY, TAB.CHEW 10/11/16 Iron Polysaccharides Complex (POLYSACCHARIDE IRON 150) 150 Mg Capsule, 27 MG PO QDAY, CAPSULE 10/11/16 Cyanocobalamin (Vitamin B-12) (Vitamin B12) Unknown Strength Tablet, 1000 MCG PO QWEEK 03/16/15 Ascorbic Acid (VITAMIN C) 500 Mg Tab.chew, 500 MG PO BID, TAB.CHEW 03/16/15 Cholecalciferol (Vitamin D3) (VITAMIN D-3) 2,000 Unit Capsule, 5000 UNIT PO QDAY , CAPSULE 03/12/15 [place]-3 Fatty Acids/Fish Oil (OMEGA 3 FISH OIL SOFTGEL) 1 Each Capsule.dr, 1 EACH PO BID 03/12/15 Diazepam (DIAZEPAM) 5 Mg Tablet, 5 MG PO BID Y for ANXIETY, #15 TAB 07/02/14 Amphet Asp/Amphet/D-Amphet (ADDERALL 20 MG TABLET) 20 Mg Tablet, 20 MG PO BIDBL 07/02/14 Omeprazole (OMEPRAZOLE) 40 Mg Capsule.dr, 40 MG PO BID 06/24/13 Calcium (Calcium) 500 Mg Tablet, 500 MG PO BID, 0 Refills 02/06/11 Buspirone Hcl (Buspar) 10 Mg Tablet, 10 MG PO BID, 0 Refills 02/06/11 Past Medical/Surgical History pmhx: iron deff anemia, pe, anxieyt, depression, chronic fatigue, transitional cell ca Pshx: nephrectomyu, gastric bypass Reviewed Nurses Notes: Yes Old Medical Records Reviewed: Yes Hx Smoking: Yes (last was 24 hrs ago; 1-10 per day) Smoking Status: Current: Every Day Smoker, Light Tobacco Smoker Exposure to Second Hand Smoke?: Yes Hx Substance Use Disorder: No (marijuana last use several weeks ago) Hx Alcohol Use: No Constitutional Vital Sign - Last 24 Hours 10/06/17 16:13 Temp 98.7 Pulse 91 Resp 20 B/P (MAP) 127/90 Pulse Ox 95 O2 Delivery Room Air Physical Exam General Appearance: The patient is alert, has no immediate need for airway protection and no signs of toxicity. Eyes: Pupils equal and round no pallor or injection, EOMI ENT: no pharyngeal erythema or exudates, Mucous membranes are moist, Respiratory: There are no retractions, lungs are clear to auscultation. Cardiovascular: Regular rate and rhythm. pulses are equal and symmetrical Gastrointestinal: Abdomen is soft and non tender, no masses, bowel sounds normal, no guarding, no rigidity or rebound Neurological: Cranial nerves II-XII grossly intact, no sensory or motor loss Skin: Warm and dry, no rashes. Musculoskeletal: Neck is supple non tender, no vertebral tenderness Extremities are nontender, non swollen and have full range of motion. Psych: tearful, anxious DIFFERENTIAL DIAGNOSIS: After history and physical exam differential diagnosis was considered for anxiety attack, panic attack, adderall withdrawl Medical Decision Making ED Course/Re-evaluation ED Course 10/06/2017 4:34:14 pm Spoke with dorian. Pt is on Valium 5mg bid monthly but they were waiting for a refill request from Dr. Quiroz. 10/06/2017 4:54:54 pm Pt feeling better post valium. I suspect pt is requiring more then her usual bid dosage of valium with the sudden stoppage of her adderall. Will give her a script for 15 to hold her off until dorian is able to get to her doctor. Decision to Disposition Date: Oct 06, 2017 Decision to Disposition Time: 16:55 Depart Departure Latest Vital Signs Vital Signs Date Time Temp Pulse Resp B/P (MAP) Pulse Ox O2 Delivery O2 Flow Rate FiO2 10/06/17 16:13 98.7 91 20 127/90 95 Room Air Impression: Primary Impression: Amphetamine withdrawal Additional Impression: Panic attack Condition: Improved Disposition: HOME OR SELF-CARE Referrals: CORINNE QUIROZ (PCP) 2 Days New Scripts Diazepam (VALIUM) 5 Mg Tablet 5 MG PO Q8-12H Y for ANXIETY/AGITATION, #15 TAB Prov: BRENDA LALA DO 10/06/17 Patient Instructions: Anxiety (GEN) Additional Instructions: Follow up with your family doctor. You may use valium 5mg every 8-12 hours as needed for anxiety Problem Qualifiers BRENDA LALA DO Oct 06, 2017 16:19
[2017-10-06] MEDS ORDERED: DIAZEPAM 5 MG TAB PO ONE (16:30)
[2017-10-06] MEDS ORDERED: DIA5 PO (16:58)
[2017-10-06 17:08] VITALS: BP 123/89
== END 2017-10-06 17:07 | disposition home or self-care (01) ==
LOC: ER 16:22
DX: F15.93 Other stimulant use, unspecified with withdrawal (principal); F41.0 Panic disorder [episodic paroxysmal anxiety]
CPT/HCPCS: 99283

== ENCOUNTER → 2017-10-06 | Outpatient (CLI) | payer MEDICAID ==
[2017-05-16 17:01] VITALS: BMI 33.5
[~2017-10-06] MED LIST changes: +DIA5 PO; +METH4TAB66 PO; -TRAZ-156 PO; +TRAZ50TA34 PO
== END ==
LOC: AMB 15:48
PROVIDERS: ATTEND Nurse Practitioner
DX: R00.0 Tachycardia, unspecified (principal); R06.00 Dyspnea, unspecified; F19.939 Other psychoactive substance use, unspecified with withdrawal, unspecified
CPT/HCPCS: A0425; A0427

== ENCOUNTER 2017-10-23 00:18 | Observation (INO) | payer MEDICAID ==
[2017-10-10 11:18] LABS: PLATELET COUNT, AUTOMATED 242 K/uL (150-450)
--- NOTE | 2017-10-10 11:26 | EKG ---
FACILITY: [facility] PATIENT NAME: ADRI LEGER : [id number] MR: [id number] V: [id number] EXAM DATE: ORDERING PHYSICIAN: LANE BOYKIN TECHNOLOGIST: Test Reason : BACK FUSION Blood Pressure : / mmHG Vent. Rate : 067 BPM Atrial Rate : 067 BPM P-R Int : 146 ms QRS Dur : 088 ms QT Int : 380 ms P-R-T Axes : 068 005 042 degrees QTc Int : 401 ms Normal sinus rhythm with sinus arrhythmia Possible Left atrial enlargement Diffuse, non-specific ST-T abnormalities Now with septal T inversion compared to previous Confirmed by LOAN PLOLARD ([id number]) on 10/10/2017 4:47:23 PM Referred By: Confirmed By:LOAN POLLARD
[2017-10-23] VITALS (14 sets, daily range): BP systolic 92–128; BP diastolic 49–80
[~2017-10-23] VITALS: Ht 160 cm; Wt 81.4 kg
[~2017-10-23 00:18] MED LIST changes: +DIA5 PO; -TRAZ-156 PO; +TRAZ50TA34 PO
[2017-10-23] MEDS ORDERED: THROMBIN (BOVINE) 20,000 UNIT VIAL ONE (06:09)
[2017-10-23] MEDS ORDERED: fentaNYL CITR 250 MCG/5 ML AMP ONE (07:37)
[2017-10-23] MEDS ORDERED: LIDOCAINE MPF 1% 5 ML VIAL ONE (07:39)
[2017-10-23] MEDS ORDERED: PROPOFOL EMUL(*) 10MG/ML 20 ML 80 ML ONE (07:39)
[2017-10-23] MEDS ORDERED: NS 0.9% 20 ML SDV 20 ML ONE ×4 (07:39→11:05)
[2017-10-23] MEDS ORDERED: ONDANSETRON 4 MG/2 ML VIAL ONE (07:39)
[2017-10-23] MEDS ORDERED: HALOPERIDOL LACT 5 MG/ML VIAL IM ONE (07:44)
[2017-10-23] MEDS ORDERED: REMIFENTANIL HCL 1 MG VIAL ONE ×2 (07:44→11:08)
[2017-10-23] MEDS ORDERED: LIDOCAINE/SOD BICARB 8.4% SYR ID ONE (09:00)
[2017-10-23] MEDS ORDERED: NORMOSOL R SOLN(*) 1000 ML BAG 1,000 ML IV PRN (09:00)
[2017-10-23] MEDS ORDERED: MIDAZOLAM 2 MG/2 ML VIAL IVP PRN (09:00)
[2017-10-23] MEDS ORDERED: ACETAMINOPHEN 500 MG TAB PO ONE (09:00)
[2017-10-23] MEDS ORDERED: PREGABALIN 150 MG CAPSULE PO ONE (09:00)
[2017-10-23] MEDS ORDERED: ceFAZolin(*) 2GM/D5W 50ML 50 ML IVPB ONE (09:00)
[2017-10-23] MEDS ORDERED: SUCCINYLCHOL CHL 200MG/10ML VL ONE (10:00)
[2017-10-23] MEDS ORDERED: KETAMINE HCL 200 MG/20 ML MDV ONE (10:09)
[2017-10-23] MEDS ORDERED: PROPOFOL EMUL(*) 10MG/ML 20 ML 60 ML ONE (10:50)
[2017-10-23] MEDS ORDERED: ACETAMINOPHEN(*)1000 MG/100 ML 100 ML IVPB PRN (12:20)
[2017-10-23] MEDS ORDERED: ACETAMINOPHEN 500 MG TAB PO PRN (12:20)
[2017-10-23] MEDS ORDERED: FLUSH 10 ML SYR IVP PRN (12:20)
[2017-10-23] MEDS ORDERED: HYDROmorphone HCL 2 MG/ML SDV IVP PRN (12:20)
[2017-10-23] MEDS ORDERED: BENZOCAINE/MENTHOL 1 EACH LOZG PO PRN (12:20)
[2017-10-23] MEDS ORDERED: diphenhydrAMINE 25 MG CAP PO PRN (12:20)
[2017-10-23] MEDS ORDERED: MAGNESIUM HYDROXIDE* 30ML UDCP PO PRN (12:20)
[2017-10-23] MEDS ORDERED: LR(*) 1000 ML BAG 1,000 ML IV PRN (12:20)
[2017-10-23] MEDS ORDERED: BISACODYL 10 MG SUPP PR PRN (12:20)
[2017-10-23] MEDS ORDERED: DIAZEPAM 5 MG TAB PO PRN (12:20)
[2017-10-23] MEDS ORDERED: ONDANSETRON 4 MG/2 ML VIAL IVP PRN (12:20)
[2017-10-23] MEDS ORDERED: fentaNYL CITR 100 MCG/2 ML AMP ONE (12:25)
--- NOTE | 2017-10-23 12:43 | RADIOLOGY IMAGING REPORT ---
FACILITY: [facility] [place] PATIENT NAME: Lisseth Adame : 1970 MR: [id number] V: [id number] EXAM DATE: ORDERING PHYSICIAN: LANE BOYKIN TECHNOLOGIST: Location: [facility] Patient: Lisseth Adame : 1970 Visit/Account:[id number] Date of Sevice: 10/23/2017 Cervical spine 2 views. HISTORY: Anterior C6-7 discectomy. C6-7 fusion. COMPARISON: 07/15/2017 FINDINGS: 2 crosstable lateral images were obtained, images appear to be obtained intraoperatively.. Patient is intubated. Esophageal probe is in place. Initial image demonstrates a metallic surgical instrument with tip projecting off the inferior endplate of C6. Final image demonstrates hardware a t the C6-7 level. There is anatomic at the fusion site and of the cervical spine. Mild disc space narrowing present at C5-6. IMPRESSION: Crosstable lateral images which appear to have been obtained intraoperatively. These dem onstrate fusion of C6-7. Report Dictated By: Mayra Hill MD at 10/23/2017 12:34 PM Report E-Signed By: Mayra Hill MD at 10/23/2017 12:39 PM WSN:[id number]
[2017-10-23] MEDS: oxyCODONE HCL 5 MG CAP PO PRN ×2 (13:34→23:16)
--- NOTE | 2017-10-23 13:37 | OPERATIVE REPORT 1 ---
EVENT DATE: October 23, 2017 SURGEON: Reuben Orellana M.D. ANESTHESIA: General endotracheal. CHIEF LIBRARIAN BRANCH: YARON Lindsay PREOPERATIVE DIAGNOSIS Left seventh cervical disk (C7) radiculopathy with sixth cervical disk-seventh cervical disk (C6-C7) degenerative disk disease. POSTOPERATIVE DIAGNOSIS Left seventh cervical disk (C7) radiculopathy with sixth cervical disk-seventh cervical disk (C6-C7) degenerative disk disease. PROCEDURE PERFORMED Sixth cervical disk-seventh cervical disk (C6-C7) anterior cervical diskectomy and fusion. IV FLUIDS 1100 mL. ESTIMATED BLOOD LOSS 40 mL. IMPLANTS USED 1. 7 mm size small titanium interbody device from [employer]. 2. 3.5 mm x 14 mm fixation screws from [employer]. SPECIMENS None. DRAINS 10 mm Obed-Bloom drain through the neck. COMPLICATIONS None. DISPOSITION Post-anesthesia care unit. INDICATIONS FOR SURGERY Ms. Adame is a 47-year-old female who presented to my clinic with chief complaint of left upper extremity radiating pain, numbness and tingling down the posterior triceps, dorsal forearm and into the middle three fingers of the left hand. She had tried physical therapy, medications and activity modifications with no real improvement. Her physical examination was significant for weakness in the left triceps, 4/5 compared to 5/5 on the right. The remainder of her neurologic examination was normal with the exception of diminished deep tendon reflexes at the left triceps compared to the right. Her MRI showed multi-level degenerative disk disease with C5-C6 actually being the worse level but there was foraminal narrowing on the left at C6-C7. In the absence of any C6 distribution symptoms, we elected to proceed only with a C6- C7 anterior cervical diskectomy and fusion. Prior to surgery, I explained in detail to the patient the possible risk of surgery. These risks included bleeding, infection, damage to surrounding structures, infection, esophageal injury, possible hoarseness, need for tube feeding, damage to the superior or the recurrent laryngeal nerve, damage to the carotid sheath. We also discussed the potential damage to nerves or the cervical spinal cord. Other possible risks included , blindness, sexual dysfunction, autonomic nerve system dysfunction and other unforeseen medical and surgical complications. An understanding that spinal surgery is more predictive at improving extremity discomfort than axial spine pain was stressed. DESCRIPTION OF PROCEDURE On the day of surgery, the patient was met in the preoperative hold area and all questions were answered. The operative site was identified and marked by myself. The patient was brought to the operating room and after succumbing to anesthesia was positioned in the supine position on a standard OR bed. The neck was slightly extended and the shoulders were loosely secured at the sides with inferior traction to afford acces to the anterior cervical spine. There were no changes in neurophysiologic monitoring during positioning. A final time-out was undertaken by members of the operating team to confirm correct patient, correct levels and correct surgery. She was then prepped and draped in the standard sterile orthopedic fashion. Incision was made on the left side of the anterior neck at the level of the intended fusion. Sharp dissection was carried down to the platysma, which was divided. The medial border of the sternocleidomastoid muscle was identified and finger dissection was taken medial to the carotid sheath and into the retropharyngeal space. A hand-held retractor was placed and soft tissues were dissected through anterior to the cervical spine. A clamp was placed on the soft tissue fibers anterior to the C6-C7 disk space and a lateral radiograph confirmed appropriate positioning. Soft tissues including the longus colli muscles were then elevated in subperiosteal manner from the anterior aspect of the spine and a self- retaining retractor was placed. A microscope was brought into the field. A #15 blade was used to incise the anterior annulus of the C6-C7 disk. The disk was then removed from the interbody space using progressively smaller curettes from anterior to posterior and out into the uncovertebral joints bilaterally. Once we encountered the posterior longitudinal ligament, small forward angled curette and nerve hook were used to develop an interval through the posterior longitudinal ligament and into the canal. The PLL was taken down using a #2 Kerrison punch and bilateral foraminotomies were performed. A nerve hook was used to ensure appropriate decompression of the neural elements had been achieved. We then turned our attention to the fusion portion of the procedure. I first ensured that the bony endplates of C6 and C7 had been completely cleared of all cartilaginous remnants. A high speed bur was used to lightly decorticate the endplates, ensuring bleeding across both surfaces. A 7 mm lordotic rasp was then inserted into the C6-C7 disk space and was found to be an excellent fit. We, therefore, chose a size small 7 mm lordotic interbody implant and it was gently tapped into the interbody space and countersunk about 1 mm. The extension was then taken out of the head of the table to provide further compression across the interspace. The awl was then used to puncture the endplates through the integrated holes in the interbody device. 3.5 mm x 14 mm screws were placed through those holes and tightened down. A lateral radiograph was obtained that showed excellent position of the hardware. The wound was then irrigated with copious sterile saline solution and closed in layers using interrupted sutures for the platysma, inverted interrupted sutures for the subcutaneous tissue and then a running subcuticular skin stitch. There was no change in neurophysiologic monitoring throughout the case and motor evoked potentials were run at multiple points and were all baseline. Sponge and needle counts were correct x2. POSTOPERATIVE CARE PLAN The patient will remain in the hospital overnight and will have her drain pulled in the morning. She will then be discharged home with instructions to follow up with me in two weeks' time. J LUIS
--- NOTE | 2017-10-23 14:20 | Hospitalist Consultation ---
History of Present Illness Requesting Physician Dr. Orellana Reason for Consult Asthma, Depression Chief Complaint s/p cervical fusion History of Present Illness She was admitted s/p cervical fusion. It is reported the surgery went well and without complication. History Problems: (1) Asthma Status: Chronic (2) Depression with anxiety Status: Chronic (3) History of nephrectomy Status: Chronic Home Meds Active Scripts Docusate Sodium (COLACE) 100 Mg Capsule, 1 CAP PO BID, #30 CAP 0 Refills TAKE WITH A FULL GLASS OF WATER Prov:KEKE ELIZABETH MD 05/02/17 Reported Medications Paroxetine Hcl (PAXIL) 20 Mg Tablet, 30 MG PO QDAY, TAB 10/16/17 Estradiol (ESTRADIOL) 0.5 Mg Tablet, 1 TAB PO QDAY 05/15/17 Cranberry Extract (CRANBERRY) 425 Mg Capsule, 2 TAB PO BID, CAPSULE 04/25/17 Albuterol Sulfate (VENTOLIN HFA) 18 Gm Inh, 2 PUFF INH BID, INH 04/17/17 Multivitamin W/Iron, Minerals (FLINTSTONES COMPLETE) 1 Each Tab.chew, 2 EACH PO DAILY, TAB.CHEW 10/11/16 Iron Polysaccharides Complex (POLYSACCHARIDE IRON 150) 150 Mg Capsule, 27 MG PO QDAY, CAPSULE 10/11/16 Cyanocobalamin (Vitamin B-12) (Vitamin B12) Unknown Strength Tablet, 1000 MCG PO QWEEK 03/16/15 Ascorbic Acid (VITAMIN C) 500 Mg Tab.chew, 500 MG PO BID, TAB.CHEW 03/16/15 Cholecalciferol (Vitamin D3) (VITAMIN D-3) 2,000 Unit Capsule, 5000 UNIT PO QDAY , CAPSULE 03/12/15 [place]-3 Fatty Acids/Fish Oil (OMEGA 3 FISH OIL SOFTGEL) 1 Each Capsule.dr, 1 EACH PO BID 03/12/15 Diazepam (DIAZEPAM) 5 Mg Tablet, 5 MG PO BID Y for ANXIETY, #15 TAB 07/02/14 Amphet Asp/Amphet/D-Amphet (ADDERALL 20 MG TABLET) 20 Mg Tablet, 20 MG PO BIDBL 07/02/14 Omeprazole (OMEPRAZOLE) 40 Mg Capsule.dr, 40 MG PO BID 06/24/13 Calcium (Calcium) 500 Mg Tablet, 500 MG PO BID, 0 Refills 02/06/11 Buspirone Hcl (Buspar) 10 Mg Tablet, 10 MG PO BID, 0 Refills 02/06/11 Discontinued Reported Medications Paroxetine Hcl (PAROXETINE HCL) 30 Mg Tablet, 60 MG PO QHS 04/17/17 Discontinued Scripts Diazepam (VALIUM) 5 Mg Tablet, 5 MG PO Q8-12H Y for ANXIETY/AGITATION, #15 TAB Prov:BRENDA LALA V DO 10/06/17 Methylprednisolone (METHYLPREDNISOLONE) 4 Mg Tab.ds.pk, 4 MG PO DIRECTED, #1 TAB Prov:MARTHAANNABRENDA V DO 07/15/17 Oxycodone/Acetaminophen (OXYCODONE/ACETAMINOPHEN 5MG/325 MG) 5 Mg/325 Mg Tab, 1- 2 TAB PO Q4H Y for PAIN, #30 TAB 0 Refills Prov:KEKE ELIZABETH MD 05/18/17 Levofloxacin 500 Mg Tab (LEVAQUIN 500 MG TAB) 500 Mg Tablet, 1 TAB PO QDAY@10, # 10 TAB 0 Refills Prov:KEKE ELIZABETH MD 05/18/17 Allergies: Coded Allergies: bupropion (Verified Allergy, Severe, RASH, HIVES, SWELLING, 10/06/17) Patient History: Adopted Diabetes mellitus CHILD FH: bipolar disorder CHILD Hx Smoking: Yes (1-10 per day for 6 years ) Smoking Status: Current: Every Day Smoker, Light Tobacco Smoker Exposure to Second Hand Smoke?: Yes Caffeine Intake: Coffee Caffeine/Cups Per Day: 2 cpd, occasional redbull Hx Alcohol Use: No Hx Substance Use Disorder: No (marijuana last use several weeks ago) Social Drug Use: Occasional Social Drugs: Marijuana Review of Systems All Systems Reviewed/Normal: Yes, Except as Noted Exam Vital Signs Vital Signs Date Time Temp Pulse Resp B/P (MAP) Pulse Ox O2 Delivery O2 Flow Rate FiO2 10/23/17 13:45 64 128/78 (95) 10/23/17 13:38 90 10/23/17 13:38 Nasal Cannula 0.5 10/23/17 13:26 98.0 16 General Appearance: No Acute Distress, Other (sleeping throughout exam) Cardiovascular: Regular Rate and Rhythm Respiratory: No Respiratory Distress, Clear to Auscultation Assessment and Plan Problems: (1) S/P cervical spinal fusion Status: Acute Assessment & Plan: Followed by Dr. Orellana. (2) Depression with anxiety Status: Chronic Assessment & Plan: She is on chronic treatment with Valium, Buspar and Paxil. She also takes Adderall, but has stopped taking this medication in anticipation of surgery. (3) Asthma Status: Chronic Assessment & Plan: She uses her albuterol inhaler twice daily. (4) History of nephrectomy Status: Chronic Assessment & Plan: Secondary to Transitional Cell Carcinoma. Removed in 2006. Creatinine 1.2 prior to surgery. We will recheck BMP tomorrow. Venous Thromboembolism Antithrombotics Is Pt On Any Antithrombotics?: No Exam Sepsis Risk: No Definite Risk CHYNA MUELLER [employer] Oct 23, 2017 14:20
[2017-10-23] MEDS: ceFAZolin(*) 2GM/D5W 50ML 50 ML IVPB SCH (17:24)
[2017-10-23] MEDS: ALBUTEROL 8 GM INHALER INH SCH (17:28)
[2017-10-23] MEDS: APAP/HYDROCODONE 325/5 TAB PO PRN (17:34)
[2017-10-23] MEDS: DOCUSATE SODIUM 100 MG CAP PO SCH (20:43)
[2017-10-23] MEDS: busPIRone HCL 5 MG TAB PO SCH (20:43)
[2017-10-23] MEDS: PANTOPRAZOLE SOD 40 MG TABEC PO SCH (20:43)
[2017-10-24] MEDS: ceFAZolin(*) 2GM/D5W 50ML 50 ML IVPB SCH ×2 (01:51→09:32)
[2017-10-24] MEDS: oxyCODONE HCL 5 MG CAP PO PRN (02:42)
[2017-10-24 02:43] VITALS: BP 128/77
[2017-10-24] MEDS: ALBUTEROL 8 GM INHALER INH SCH (05:38)
[2017-10-24] MEDS ORDERED: DOCU240C84 PO (07:08)
[2017-10-24] MEDS ORDERED: LOR5/325 PO (07:09)
[2017-10-24] MEDS: APAP/HYDROCODONE 325/5 TAB PO PRN (07:39)
[2017-10-24 07:53] VITALS: BP 119/78
[2017-10-24] MEDS: PANTOPRAZOLE SOD 40 MG TABEC PO SCH (08:18)
[2017-10-24] MEDS: busPIRone HCL 5 MG TAB PO SCH (08:18)
[2017-10-24] MEDS: DOCUSATE SODIUM 100 MG CAP PO SCH (08:18)
[2017-10-24 08:37] VITALS: Ht 160 cm; Wt 81.4 kg
[2017-10-24] MEDS ORDERED: PARoxetine HCL 20 MG TAB PO SCH (09:00)
--- NOTE | 2017-10-24 11:07 | Hospitalist Progress Note ---
Subjective Progress Notes Subjective She was admitted s/p cervical fusion. She has no concerns this morning. She had no acute events overnight. Patient Complains of: Cardiovascular: No: Chest Pain Respiratory: No: Shortness of Breath Gastrointestinal: No Nausea Physical Exam Vital Signs Date Time Temp Pulse Resp B/P (MAP) Pulse Ox O2 Delivery O2 Flow Rate FiO2 10/24/17 07:53 98.6 63 16 119/78 (92) 93 Nasal Cannula 0.5 Intake and Output 10/25/17 00:59 Intake Total 100 ml Balance 100 ml Intake Oral 0 ml IV Total 100 ml # Voids 2 General Appearance: Alert, Awake, No Acute Distress, Afebrile Neuro: No Gross deficits Cardiovascular: Regular Rate and Rhythm Respiratory: No Respiratory Distress, Clear to Auscultation Psych: Alert & Oriented X3, Appropriate Mood & Affect Result Diagram: 10/24/17 0510 Assessment and Plan Problems: (1) S/P cervical spinal fusion Status: Acute Assessment & Plan: Followed by Dr. Orellana. (2) Depression with anxiety Status: Chronic Assessment & Plan: She is on chronic treatment with Valium, Buspar and Paxil. She also takes Adderall, but has stopped taking this medication in anticipation of surgery. (3) Asthma Status: Chronic Assessment & Plan: She uses her albuterol inhaler twice daily. (4) History of nephrectomy Status: Chronic Assessment & Plan: Secondary to Transitional Cell Carcinoma. Removed in 2006. Creatinine 1.2 prior to surgery. Creatinine 1.0 today. Exam Sepsis Risk: No Definite Risk CHYNA MUELLER [facility] Oct 24, 2017 11:06
--- NOTE | 2017-10-24 15:28 | RADIOLOGY IMAGING REPORT ---
FACILITY: [facility] [place] PATIENT NAME: Lisseth Adame : 1970 MR: [id number] V: [id number] EXAM DATE: ORDERING PHYSICIAN: LANE BOYKIN TECHNOLOGIST: [facility] Patient: Lisseth Adame : 1970 Visit/Account:[id number] Date of Sevice: 10/24/2017 EXAMINATION: Cervical spine series, 2 views 10/24/2017 7:04 AM HISTORY: AP/Lat standing C-spine x-ray COMPARISON: Intraoperative imaging 10/23/2017, plain films 07/15/2017 FINDINGS: Status post ACF at C6-7 with good alignment. Metallic fixation is intact. Spondylosis aga in shown at C5-6. Cervical alignment is unchanged. No acute bony finding apart from effusion. Prec ervical soft tissues are not significantly thickened. IMPRESSION: Status post C6-7 ACF with good alignment. C5-6 spondylosis is present. Report Dictated By: Jose Seay MD at 10/24/2017 3:20 PM Report E-Signed By: Jose Seay MD at 10/24/2017 3:23 PM WSN:[id number]
== END 2017-10-24 10:50 | disposition home or self-care (01) ==
LOC: OR 00:18 → MED 13:10
PROVIDERS: ADMIT Orthopaedic Surgery; ATTEND Orthopaedic Surgery
DX: M50.123 Cervical disc disorder at C6-C7 level with radiculopathy (principal); Z86.711 Personal history of pulmonary embolism; G47.33 Obstructive sleep apnea (adult) (pediatric); F32.9 Major depressive disorder, single episode, unspecified; F41.9 Anxiety disorder, unspecified; J45.909 Unspecified asthma, uncomplicated
CPT/HCPCS: 22551; 22552; 36415; 72020; 72040; 81001; 85025; 86850; 86900; 86901; 93005; 94640; 96372; 97116; 97161; C1713; G0378; J0330; J1630; J2001; J2405; J2704; J3010; J3490; J3535; J7050; 82040; 82247; 82310; 82374; 82435; 82565; 82947; 84075; 84132; 84155; 84295; 84450; 84460; 84520; J0690

== ENCOUNTER 2017-12-01 01:16 | Emergency (ER) | payer MEDICAID ==
[2017-10-24 08:37] VITALS: Wt 72.6 kg
[~2017-12-01 01:16] MED LIST changes: +DOCU240C84 PO
--- NOTE | 2017-12-01 01:36 | ER Report ---
History and Physical Time Seen By MD: 01:35 Hx. of Stated Complaint: PATIENT HAS BEEN HAVING PRESSURE IN URETHRA, A COUPLE DAYS AGO SHE FELT LIKE SHE WAS PEEING RAZOR BLADES, PATIENT HAD FUSION DONE IN NECK. PATIENT STATES SHE FEELS OFF, DIARRHEA, JUST FEELING "YUCK". HPI/ROS CHIEF COMPLAINT: not feeling well, worried about urinary tract infection, neck pain, depression/stress HISTORY OF PRESENT ILLNESS: This is a 47 year old female. She is not feeling well. She has had dysuria for about a week now. Has some associated lower abdominal pain. Also with some left flank pain. Having occasional chills, but no fevers. Overall feels achy. Had cervical spine surgery recently, C6-C7 anterior cervical discectomy and fusion on October 23, 2017. Has not yet started physical therapy. She states that she is under a lot of stress and wonders if that is causing some increased neck pain. The anterior surgical incision is been healing well and no drainage or signs of infection there. She feels like the surgical pain has been resolving. She still does have occasional trouble swallowing or feeling short of breath. She denies any chest pain right now. Her increased stress is increased recently tonight when her "man in her life" said they were through. She does have occasional thoughts that it would be better if she were n ot around, but denies feeling suicidal. She has bowels or be intermittently loose, but otherwise normal. No nausea or vomiting. Poor appetite with all of this. Also poor energy. She does have a little bit of a headache tonight. REVIEW OF SYSTEMS: Constitutional: As above. Eyes: No discharge. No vision changes. ENT: No sore throat. No congestion. Cardiovascular: No chest pain. Respiratory: No shortness of breath. Gastrointestinal: As above. Genitourinary: As above. Musculoskeletal: Generalized aches, No back pain. No extremity pain. Skin: No rashes. Occasional bruising. Neurological: No numbness. No focal weakness, but does have general fatigue. Allergies: Coded Allergies: bupropion (Verified Allergy, Severe, RASH, HIVES, SWELLING, 12/01/17) Home Meds Active Scripts Diazepam (VALIUM) 5 Mg Tablet, 5 MG PO TID PRN for ANXIETY, #10 TAB 0 Refills Prov:MITCH VELASCO MD 12/01/17 Hydrocodone Bit/Acetaminophen (HYDROCODON-ACETAMINOPHEN 5-325) 1 Each Tablet, 1 EACH PO Q4H PRN for PAIN, #12 TAB 0 Refills Prov:MITCH VELASCO MD 12/01/17 Amoxicillin/Pot Clav 875-125 Mg Tab (AUGMENTIN 875-125 TABLET) 1 Each Tablet, 1 TAB PO Q12H, #20 TAB 0 Refills Prov:MITCH VELASCO MD 12/01/17 Reported Medications Hydrocodone Bit/Acetaminophen (HYDROCODON-ACETAMINOPHEN 5-325) 1 Each Tablet, 1- 2 EACH PO Q6H PRN for PAIN, #36 TAB 10/24/17 Docusate Calcium (SURFAK) 240 Mg Capsule, 240 MG PO DAILY, #9 CAPSULE 10/24/17 Paroxetine Hcl (PAXIL) 20 Mg Tablet, 60 MG PO QDAY 10/16/17 Cranberry Extract (CRANBERRY) 425 Mg Capsule, 2 TAB PO BID, CAPSULE 04/25/17 Albuterol Sulfate (VENTOLIN HFA) 18 Gm Inh, 2 PUFF INH BID, INH 04/17/17 Multivitamin W/Iron, Minerals (FLINTSTONES COMPLETE) 1 Each Tab.chew, 2 EACH PO DAILY, TAB.CHEW 10/11/16 Iron Polysaccharides Complex (POLYSACCHARIDE IRON 150) 150 Mg Capsule, 27 MG PO QDAY, CAPSULE 10/11/16 Cyanocobalamin (Vitamin B-12) (Vitamin B12) Unknown Strength Tablet, 1000 MCG PO QWEEK 03/16/15 Ascorbic Acid (VITAMIN C) 500 Mg Tab.chew, 500 MG PO BID, TAB.CHEW 03/16/15 Cholecalciferol (Vitamin D3) (VITAMIN D-3) 2,000 Unit Capsule, 2000 UNIT PO QDAY, CAPSULE 03/12/15 [place]-3 Fatty Acids/Fish Oil (OMEGA 3 FISH OIL SOFTGEL) 1 Each Capsule.dr, 1 EACH PO BID 03/12/15 Omeprazole (OMEPRAZOLE) 40 Mg Capsule.dr, 40 MG PO QDAY 06/24/13 Calcium (Calcium) 500 Mg Tablet, 500 MG PO BID, 0 Refills 02/06/11 Buspirone Hcl (Buspar) 10 Mg Tablet, 10 MG PO BID, 0 Refills 02/06/11 Discontinued Reported Medications Diazepam (DIAZEPAM) 5 Mg Tablet, 5 MG PO BID PRN for ANXIETY, #15 TAB 07/02/14 Past Medical/Surgical History 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 History of daniel cide attempt in the past. Other surgeries include abdominal adhesion surgery, gastric bypass, cholecystectomy, right nephrectomy as noted, hysterectomy, left ulnar nerve release and bilateral radial nerve releases, wisdom teeth, tonsillectomy Reviewed Nurses Notes: Yes Hx Smoking: Yes (last was 24 hrs ago; 1-10 per day) Smoking Status: Current: Every Day Smoker, Light Tobacco Smoker Exposure to Second Hand Smoke?: Yes Hx Substance Use Disorder: No (marijuana last use several weeks ago) Hx Alcohol Use: No Constitutional Vital Sign - Last 24 Hours 12/01/17 12/01/17 12/01/17 12/01/17 01:26 01:31 01:41 01:46 Temp 98.9 Pulse 61 57 62 Resp 12 B/P (MAP) 126/92 115/87 (96) Pulse Ox 98 98 97 O2 Delivery Room Air 12/01/17 12/01/17 12/01/17 12/01/17 02:00 02:01 02:06 03:11 Pulse 61 63 62 B/P (MAP) 111/84 (93) Pulse Ox 94 96 98 12/01/17 12/01/17 12/01/17 03:26 03:30 03:35 Pulse 64 69 B/P (MAP) 116/82 (93) Pulse Ox 97 97 Intake and Output 11/30/17 11/30/17 12/01/17 15:00 23:00 07:00 Intake Total 1000 ml Balance 1000 ml Physical Exam General Appearance: The patient is alert. No acute distress. Non-toxic in appearance. Eyes: Pupils are equal, round. Reactive to light. No pallor, injection or icterus. Extraocular movements are intact. ENT: Mucous membranes are moist. Normal oral mucosa. Posterior oropharynx is normal. Neck: Supple and non tender. No lymphadenopathy. Respiratory: Lungs are clear to auscultation. Cardiovascular: Regular rate and rhythm. No murmurs, gallops or rubs. Normal capillary refill. No edema. Gastrointestinal: Abdomen is soft, tender in lower abdomen. Nondistended. Normal active bowel sounds. Has left sided CVA tenderness. Neurological: Alert and oriented x3. Cranial nerves II through XII show no acute deficits on my exam. No focal neurologic deficits in the extremities. Skin: Warm and dry. No rashes. Musculoskeletal: Has some diffuse stiffness in the neck bilaterally. Extremities are nontender. Full range of motion. No tenderness in palpation of the thoracic and lumbar spine. DIFFERENTIAL DIAGNOSIS: After history and physical exam, differential diagnosis was considered for symptoms of urinary tract infection or pyelonephritis. Increased stress and depression. Having neck muscle pain, but no symptoms suggesting meningitis at this time. Will check labs and determine if abdomen pelvis CT needed. Will get cervical spine radiographs. Provide a liter of normal saline IV and an oral dose of Valium 5mg. Medical Decision Making Data Points Result Diagram: 12/01/17 0140 12/01/17 0140 Laboratory Hematology Test 12/01/17 01:21 12/01/17 01:40 Urine Color Straw Urine Clarity Clear Urine pH 6.0 pH (4.8-9.5) Urine Specific [place] 1.005 Urine Protein Negative mg/dL (NEGATIVE) Urine Glucose (UA) Negative mg/dL (NEGATIVE) Urine Ketones Negative mg/dL (NEGATIVE) Urine Blood Negative (NEGATIVE) Urine Nitrite Negative (NEGATIVE) Urine Bilirubin Negative (NEGATIVE) Urine Urobilinogen Negative mg/dL (0.2-1.9) Urine Leukocyte Esterase Trace (NEGATIVE) Urine RBC <1 /HPF (0-2/HPF) Urine WBC 6 /HPF (0-5/HPF) Urine Squamous Epithelial Cells Few /LPF (</=FEW) Urine Bacteria Few /HPF (NONE-FEW) Urine Mucus None /HPF (NONE-FEW) Red Blood Count 4.40 M/uL (4.17-5.56) Mean Corpuscular Volume 91.9 fL (80.0-96.0) Mean Corpuscular Hemoglobin 32.3 pg (26.0-33.0) Mean Corpuscular Hemoglobin Concent 35.1 g/dL (32.0-36.0) Red Cell Distribution Width 12.9 % (11.5-14.5) Mean Platelet Volume 7.9 fL (7.2-11.1) Neutrophils (%) (Auto) 43.7 % (39.4-72.5) Lymphocytes (%) (Auto) 46.1 % (17.6-49.6) Monocytes (%) (Auto) 5.7 % (4.1-12.4) Eosinophils (%) (Auto) 3.6 % (0.4-6.7) Basophils (%) (Auto) 0.9 % (0.3-1.4) Nucleated RBC Relative Count (auto) 0.1 /100WBC Neutrophils # (Auto) 2.6 K/uL (2.0-7.4) Lymphocytes # (Auto) 2.8 K/uL (1.3-3.6) Monocytes # (Auto) 0.3 K/uL (0.3-1.0) Eosinophils # (Auto) 0.2 K/uL (0.0-0.5) Basophils # (Auto) 0.1 K/uL (0.0-0.1) Nucleated RBC Absolute Count (auto) 0.00 K/uL Erythrocyte Sedimentation Rate 11 mm/HOUR (0-20) Sodium Level 141 mmol/L (137-145) Potassium Level 4.0 mmol/L (3.5-5.0) Chloride Level 106 mmol/L (98-107) Carbon Dioxide Level 23 mmol/L (22-31) Blood Urea Nitrogen 20 mg/dl (7-18) Creatinine 1.20 mg/dl (0.52-1.04) Glomerular Filtration Rate Calc 48.4 Random Glucose 90 mg/dl (75-110) Calcium Level 9.3 mg/dl (8.4-10.2) Total Bilirubin 0.3 mg/dl (0.2-1.3) Aspartate Amino Transf (AST/SGOT) 34 U/L (0-35) Alanine Aminotransferase (ALT/SGPT) 30 U/L (0-56) Alkaline Phosphatase 89 U/L (0-126) C-Reactive Protein < 0.5 mg/dl (<1.0) Total Protein 7.7 g/dl (6.3-8.2) Albumin 4.3 g/dl (3.5-5.0) Chemistry Test 12/01/17 01:21 12/01/17 01:40 Urine Color Straw Urine Clarity Clear Urine pH 6.0 pH (4.8-9.5) Urine Specific Elysian 1.005 Urine Protein Negative mg/dL (NEGATIVE) Urine Glucose (UA) Negative mg/dL (NEGATIVE) Urine Ketones Negative mg/dL (NEGATIVE) Urine Blood Negative (NEGATIVE) Urine Nitrite Negative (NEGATIVE) Urine Bilirubin Negative (NEGATIVE) Urine Urobilinogen Negative mg/dL (0.2-1.9) Urine Leukocyte Esterase Trace (NEGATIVE) Urine RBC <1 /HPF (0-2/HPF) Urine WBC 6 /HPF (0-5/HPF) Urine Squamous Epithelial Cells Few /LPF (</=FEW) Urine Bacteria Few /HPF (NONE-FEW) Urine Mucus None /HPF (NONE-FEW) White Blood Count 6.0 k/uL (4.5-11.0) Red Blood Count 4.40 M/uL (4.17-5.56) Hemoglobin 14.2 g/dL (12.0-16.0) Hematocrit 40.4 % (34.0-47.0) Mean Corpuscular Volume 91.9 fL (80.0-96.0) Mean Corpuscular Hemoglobin 32.3 pg (26.0-33.0) Mean Corpuscular Hemoglobin Concent 35.1 g/dL (32.0-36.0) Red Cell Distribution Width 12.9 % (11.5-14.5) Platelet Count 259 K/uL (150-450) Mean Platelet Volume 7.9 fL (7.2-11.1) Neutrophils (%) (Auto) 43.7 % (39.4-72.5) Lymphocytes (%) (Auto) 46.1 % (17.6-49.6) Monocytes (%) (Auto) 5.7 % (4.1-12.4) Eosinophils (%) (Auto) 3.6 % (0.4-6.7) Basophils (%) (Auto) 0.9 % (0.3-1.4) Nucleated RBC Relative Count (auto) 0.1 /100WBC Neutrophils # (Auto) 2.6 K/uL (2.0-7.4) Lymphocytes # (Auto) 2.8 K/uL (1.3-3.6) Monocytes # (Auto) 0.3 K/uL (0.3-1.0) Eosinophils # (Auto) 0.2 K/uL (0.0-0.5) Basophils # (Auto) 0.1 K/uL (0.0-0.1) Nucleated RBC Absolute Count (auto) 0.00 K/uL Erythrocyte Sedimentation Rate 11 mm/HOUR (0-20) Glomerular Filtration Rate Calc 48.4 Calcium Level 9.3 mg/dl (8.4-10.2) Total Bilirubin 0.3 mg/dl (0.2-1.3) Aspartate Amino Transf (AST/SGOT) 34 U/L (0-35) Alanine Aminotransferase (ALT/SGPT) 30 U/L (0-56) Alkaline Phosphatase 89 U/L (0-126) C-Reactive Protein < 0.5 mg/dl (<1.0) Total Protein 7.7 g/dl (6.3-8.2) Albumin 4.3 g/dl (3.5-5.0) Urinalysis Test 12/01/17 01:21 Urine Color Straw Urine Clarity Clear Urine pH 6.0 pH (4.8-9.5) Urine Specific Elysian 1.005 Urine Protein Negative mg/dL (NEGATIVE) Urine Glucose (UA) Negative mg/dL (NEGATIVE) Urine Ketones Negative mg/dL (NEGATIVE) Urine Blood Negative (NEGATIVE) Urine Nitrite Negative (NEGATIVE) Urine Bilirubin Negative (NEGATIVE) Urine Urobilinogen Negative mg/dL (0.2-1.9) Urine Leukocyte Esterase Trace (NEGATIVE) Urine RBC <1 /HPF (0-2/HPF) Urine WBC 6 /HPF (0-5/HPF) Urine Squamous Epithelial Cells Few /LPF (</=FEW) Urine Bacteria Few /HPF (NONE-FEW) Urine Mucus None /HPF (NONE-FEW) EKG/Imaging Imaging CERVICAL SPINE 2 OR 3 VIEW HISTORY: Neck pain. Fusion October 2017. COMPARISON: 10/24/2017 and studies dating to 08/11/2007. TECHNIQUE: AP, lateral, and odontoid views of the cervical spine. FINDINGS: On the lateral view, C1 to the top of T1 are visible. There is interbody fusion of C6-7. Hardware is intact and unchanged. There is moderate degenerative disc disease at C5-6, unchanged. Prevertebral soft tissues are within normal limits. There is straightening of the normal cervical lordosis, stable. There is an unfused ossification center versus old fracture of the tip of the C7 spinous process, unchanged. No acute fracture. Lateral masses of C1 are well seated on C2. Visible lungs are clear. IMPRESSION: 1. Stable appearance of the cervical spine without acute osseous abnormality. Report Dictated By: Mimi Dove at 12/01/2017 2:28 AM ABDOMEN/PELVIS W/O CONTRAST HISTORY: Left flank pain. History of right nephrectomy. COMPARISON: 05/15/2017 and available studies dating to 06/22/2014. TECHNIQUE: Axial images were obtained from the lung bases through the symphysis pubis without intravenous contrast. Sagittal and coronal reformats were performed. One of the following dose optimization techniques was utilized in the performance of this exam: Automated exposure control; adjustment of the mA and/or kV according to the patient's size; or use of an iterative reconstruction technique. Specific details can be referenced in the facility's radiology CT exam operational policy. CONTRAST: None. FINDINGS: Lower chest: There is minimal atelectasis. Liver: Normal. Gallbladder/biliary: Status post cholecystectomy. No intrahepatic or extrahepatic ductal dilation. Pancreas: Mild atrophy. Spleen: Normal. Adrenals: Normal. Kidneys/ureters/bladder: The left kidney, the left ureter, and the bladder are normal. The right kidney is surgically absent. GI/mesentery/peritoneal cavity: There are changes of gastric bypass. There is no bowel obstruction. There is no wall thickening or pericolonic stranding. The appendix is normal. No free air or free fluid. Vessels: No aneurysm. There is minimal calcified atherosclerosis of the infrarenal abdominal aorta. Nodes: Normal. Pelvis: There are phleboliths. Uterus is absent. Bones/vertebra/soft tissues: There is partial sacralization of the left L5 transverse process. There is mild degenerative change of the spine. There is 3 mm anterolisthesis of L3 on L4, unchanged. IMPRESSION: 1. No findings in the abdomen or pelvis to account for the patient's symptoms. Report Dictated By: Mimi Dove at 12/01/2017 3:08 AM ED Course/Re-evaluation Clinical Indication for ER IV: Hydration, IV Access ED Course Urinalysis shows changes consistent with mild urinary tract infection. Urine culture ordered. CT scan shows no abnormalities as noted. Hydration with a liter of normal saline. Valium 5mg oral dose helped with neck tightness and stress /anxiety. Dilaudid 0.5mg IV helped her pain. Home on Augmenting and follow-up wtih Dr. Acevedo. She will also continue with PT for her neck. Cervical x-ray negative for acute problem as well. Decision to Disposition Date: Dec 01, 2017 Decision to Disposition Time: 03:41 Depart Departure Latest Vital Signs Vital Signs Date Time Temp Pulse Resp B/P (MAP) Pulse Ox O2 Delivery O2 Flow Rate FiO2 12/01/17 03:35 69 97 12/01/17 03:30 116/82 (93) 12/01/17 01:26 98.9 12 Room Air Impression: Primary Impression: UTI (urinary tract infection) Condition: Improved Disposition: HOME OR SELF-CARE Referrals: [facility]IN[facility] (PCP) New Scripts Diazepam (VALIUM) 5 Mg Tablet 5 MG PO TID PRN for ANXIETY, #10 TAB 0 Refills Prov: MITCH VELASCO MD 12/01/17 Hydrocodone Bit/Acetaminophen (HYDROCODON-ACETAMINOPHEN 5-325) 1 Each Tablet 1 EACH PO Q4H PRN for PAIN, #12 TAB 0 Refills Prov: MITCH VELASCO MD 12/01/17 Amoxicillin/Pot Clav 875-125 Mg Tab (AUGMENTIN 875-125 TABLET) 1 Each Tablet 1 TAB PO Q12H, #20 TAB 0 Refills Prov: MITCH VELASCO MD 12/01/17 Patient Instructions: Urinary Tract Infection in Women (ED) Additional Instructions: Take the antibiotic Augmentin 875/125, twice a day for 10 days. Call and make an appointment with Dr. Acevedo. Take Lortab 5/325, one every 4 hours as needed for severe pain. Take Valium 5mg, one every 8 hours as needed for anxiety or for muscle tightness. Increase fluid intake. Make an appointment with your primary care provider and your mental health provider Problem Qualifiers Primary Impression: UTI (urinary tract infection) Urinary tract infection type: acute cystitis Hematuria presence: without hematuria Qualified Codes: N30.00 - Acute cystitis without hematuria MITCH VELASCO MD Dec 01, 2017 01:36
[2017-12-01] MEDS ORDERED: NS(*) 0.9% 1000 ML BAG 1,000 ML IV ONE (02:00)
[2017-12-01] MEDS ORDERED: DIAZEPAM 5 MG TAB PO ONE (02:00)
[2017-12-01 02:18] LABS: PLATELET COUNT, AUTOMATED 259 K/uL (150-450)
--- NOTE | 2017-12-01 02:35 | RADIOLOGY IMAGING REPORT ---
FACILITY: [facility] - [place], [place] PATIENT NAME: Lisseth Adame : 1970 MR: [id number] V: [id number] EXAM DATE: ORDERING PHYSICIAN: MITCH VELASCO TECHNOLOGIST: [place] [facility] [place] Lisseth Adame : 1970 Visit/Account:[id number] Date of Sevice: 12/01/2017 CERVICAL SPINE 2 OR 3 VIEW HISTORY: Neck pain. Fusion October 2017. COMPARISON: 10/24/2017 and studies dating to 08/11/2007. TECHNIQUE: AP, lateral, and odontoid views of the cervical spine. FINDINGS: On the lateral view, C1 to the top of T1 are visible. There is interbody fusion of C6-7. Cole rdware is intact and unchanged. There is moderate degenerative disc disease at C5-6, unchanged. Prevertebral soft tissues are within normal limits. There is straightening of the normal cervical susannah dosis, stable. There is an unfused ossification center versus old fracture of the tip of the C7 spino us process, unchanged. No acute fracture. Lateral masses of C1 are well seated on C2. Visible lungs a re clear. IMPRESSION: 1. Stable appearance of the cervical spine without acute osseous abnormality. Report Dictated By: Mimi Dove at 12/01/2017 2:28 AM Report E-Signed By: Mimi Dove at 12/01/2017 2:31 AM WSN:[id number]
[2017-12-01] MEDS ORDERED: HYDROMORPHONE HCL 1 MG/ML SYRINGE IVP ONE (02:40)
--- NOTE | 2017-12-01 03:22 | RADIOLOGY IMAGING REPORT ---
FACILITY: [facility] - [place] PATIENT NAME: Lisseth Adame : 1970 MR: [id number] V: [id number] EXAM DATE: ORDERING PHYSICIAN: MITCH VELASCO TECHNOLOGIST: Location: [facility] Patient: Lisseth Adame : 1970 Visit/Account:[id number] Date of Sevice: 12/01/2017 ABDOMEN/PELVIS W/O CONTRAST HISTORY: Left flank pain. History of right nephrectomy. COMPARISON: 05/15/2017 and available studies dating to 06/22/2014. TECHNIQUE: Axial images were obtained from the lung bases through the symphysis pubis without intrave nous contrast. Sagittal and coronal reformats were performed. One of the following dose optimization techniques was utilized in the performance of this exam: Autom ated exposure control; adjustment of the mA and/or kV according to the patient's size; or use of an i terative reconstruction technique. Specific details can be referenced in the facility's radiology CT exam operational policy. CONTRAST: None. FINDINGS: Lower chest: There is minimal atelectasis. Liver: Normal. Gallbladder/biliary: Status post cholecystectomy. No intrahepatic or extrahepatic ductal dilation. Pancreas: Mild atrophy. Spleen: Normal. Adrenals: Normal. Kidneys/ureters/bladder: The left kidney, the left ureter, and the bladder are normal. The right kidn ey is surgically absent. GI/mesentery/peritoneal cavity: There are changes of gastric bypass. There is no bowel obstruction. T here is no wall thickening or pericolonic stranding. The appendix is normal. No free air or free flui d. Vessels: No aneurysm. There is minimal calcified atherosclerosis of the infrarenal abdominal aorta. Nodes: Normal. Pelvis: There are phleboliths. Uterus is absent. Bones/vertebra/soft tissues: There is partial sacralization of the left L5 transverse process. There is mild degenerative change of the spine. There is 3 mm anterolisthesis of L3 on L4, unchanged. IMPRESSION: 1. No findings in the abdomen or pelvis to account for the patient's symptoms. Report Dictated By: Mimi Dove at 12/01/2017 3:08 AM Report E-Signed By: Mimi Dove at 12/01/2017 3:20 AM WSN:[id number]
[2017-12-01 03:30] VITALS: BP 116/82
[2017-12-01] MEDS ORDERED: AMOX/CLAV 875 MG TAB PO ONE (03:40)
[2017-12-01] MEDS ORDERED: ALBUTEROL 8 GM INHALER INH ONE (03:40)
[2017-12-01] MEDS ORDERED: ACET/HYDROC 5/325MG TH ER ONLY 2 TAB/BOTTLE PO ONE (03:40)
[2017-12-01] MEDS ORDERED: AMOX-559 PO (03:43)
[2017-12-01] MEDS ORDERED: DIA5 PO (03:43)
[2017-12-01] MEDS ORDERED: LOR5/325 PO (03:43)
== END 2017-12-01 04:00 | disposition home or self-care (01) ==
LOC: ER 01:23
DX: N30.00 Acute cystitis without hematuria (principal)
CPT/HCPCS: 81001; 84443; 85025; 85651; 86140; 87088; 96361; 96374; 99284; J1170; J3535; J7030; 72040; 74176; 82040; 82247; 82310; 82374; 82435; 82565; 82947; 84075; 84132; 84155; 84295; 84450; 84460; 84520; 87077; 87186

== ENCOUNTER → 2017-12-11 | Outpatient (REF) | payer MEDICAID ==
[2017-10-24 08:37] VITALS: BMI 31.7
== END ==
LOC: ZZSENDIN 14:12
PROVIDERS: ATTEND Urology
DX: N39.0 Urinary tract infection, site not specified (principal); R30.0 Dysuria; B96.89 Other specified bacterial agents as the cause of diseases classified elsewhere
CPT/HCPCS: 87088

== ENCOUNTER 2018-01-02 17:36 | Emergency (ER) | payer MEDICAID ==
[2017-10-24 08:37] VITALS: Wt 72.7 kg
[2018-01-02] MEDS ORDERED: AMPH20TA18 PO (17:50)
[2018-01-02] MEDS ORDERED: NS(*) 0.9% 1000 ML BAG 1,000 ML IV ONE (18:10)
--- NOTE | 2018-01-02 18:10 | ER Report ---
History and Physical Time Seen By MD: 18:04 Hx. of Stated Complaint: Patient reports feeling bad. Nausea, stomach cramps. Back pain on both sides. Only has left kidney. Shortness of breath. Feels like "heart beat is off". HPI/ROS CHIEF COMPLAINT: Back pain, not feeling well HISTORY OF PRESENT ILLNESS: 47-year-old female with a history of a nephrectomy secondary to transitional cell cancer approximately 8 years ago. She is followed by Dr. Acevedo. She was seen here 4 weeks ago and diagnosed with a low- grade UTI. She was placed on antibiotics. She subsequently followed up with Dr. Acevedo, who changed her to Macrobid. Patient has continued to not feel well. She describes worsening over the last week. She describes bilateral flank pain on the left and the right. She's had no fever or chills. She had a couple episodes of vomiting 3 days ago. She notes no diarrhea. She notes some urinary discomfort. She denies hematuria. She notes that her urine is somewhat foamy. He also notes a mild viral URI symptoms. She's had some clear rhinitis and a mild sore throat and a dry cough. She notes no shortness of breath or chest pain. She notes some mild lower extremity edema. Patient states that she followed up with her primary care and was evaluated 2 weeks ago. Patient had a CT scan of her abdomen and pelvis during her last visit 4 weeks ago. REVIEW OF SYSTEMS: Respiratory: As above Cardiovascular: No chest pain, no palpitations. Gastrointestinal: As above Musculoskeletal: As above Allergies: Coded Allergies: bupropion (Verified Allergy, Severe, RASH, HIVES, SWELLING, 01/02/18) Home Meds Reported Medications Amphet Asp/Amphet/D-Amphet (ADDERALL 20 MG TABLET) 20 Mg Tablet, 40 MG PO DAILY 01/02/18 Paroxetine Hcl (PAXIL) 20 Mg Tablet, 60 MG PO QDAY 10/16/17 Cranberry Extract (CRANBERRY) 425 Mg Capsule, 2 TAB PO BID, CAPSULE 04/25/17 Albuterol Sulfate (VENTOLIN HFA) 18 Gm Inh, 2 PUFF INH BID, INH 04/17/17 Multivitamin W/Iron, Minerals (FLINTSTONES COMPLETE) 1 Each Tab.chew, 2 EACH PO DAILY, TAB.CHEW 10/11/16 Iron Polysaccharides Complex (POLYSACCHARIDE IRON 150) 150 Mg Capsule, 27 MG PO QDAY, CAPSULE 10/11/16 Cyanocobalamin (Vitamin B-12) (Vitamin B12) Unknown Strength Tablet, 1000 MCG PO QWEEK 03/16/15 Ascorbic Acid (VITAMIN C) 500 Mg Tab.chew, 500 MG PO BID, TAB.CHEW 03/16/15 Cholecalciferol (Vitamin D3) (VITAMIN D-3) 2,000 Unit Capsule, 2000 UNIT PO QDAY, CAPSULE 03/12/15 Totz-3 Fatty Acids/Fish Oil (OMEGA 3 FISH OIL SOFTGEL) 1 Each Capsule.dr, 1 EACH PO BID 03/12/15 Omeprazole (OMEPRAZOLE) 40 Mg Capsule.dr, 40 MG PO QDAY 06/24/13 Calcium (Calcium) 500 Mg Tablet, 500 MG PO BID, 0 Refills 02/06/11 Buspirone Hcl (Buspar) 10 Mg Tablet, 10 MG PO BID, 0 Refills 02/06/11 Discontinued Reported Medications Hydrocodone Bit/Acetaminophen (HYDROCODON-ACETAMINOPHEN 5-325) 1 Each Tablet, 1- 2 EACH PO Q6H PRN for PAIN, #36 TAB 10/24/17 Docusate Calcium (SURFAK) 240 Mg Capsule, 240 MG PO DAILY, #9 CAPSULE 10/24/17 Discontinued Scripts Diazepam (VALIUM) 5 Mg Tablet, 5 MG PO TID PRN for ANXIETY, #10 TAB 0 Refills Prov:MITCH VELASCO MD 12/01/17 Hydrocodone Bit/Acetaminophen (HYDROCODON-ACETAMINOPHEN 5-325) 1 Each Tablet, 1 EACH PO Q4H PRN for PAIN, #12 TAB 0 Refills Prov:MITCH VELASCO MD 12/01/17 Amoxicillin/Pot Clav 875-125 Mg Tab (AUGMENTIN 875-125 TABLET) 1 Each Tablet, 1 TAB PO Q12H, #20 TAB 0 Refills Prov:MITCH VELASCO MD 12/01/17 Past Medical/Surgical History Past medical history: 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 Past surgical history: Right nephrectomy for transitional cell carcinoma, spinal fusion of C6-7 disc on 10/23/[address] Orellana Hx Smoking: Yes (last was 24 hrs ago; 1-10 per day) Smoking Status: Current: Every Day Smoker, Light Tobacco Smoker Exposure to Second Hand Smoke?: Yes Hx Substance Use Disorder: No (marijuana last use several weeks ago) Hx Alcohol Use: No Constitutional Vital Sign - Last 24 Hours 01/02/18 01/02/18 01/02/18 01/02/18 17:41 17:42 17:51 18:00 Temp 98.2 Pulse 97 92 Resp 16 13 B/P (MAP) 144/93 144/93 (110) 110/79 (89) Pulse Ox 97 99 O2 Delivery Room Air 01/02/18 01/02/18 01/02/18 01/02/18 18:06 18:21 18:30 18:36 Pulse 87 77 79 Resp 12 12 10 B/P (MAP) 87/59 (68) Pulse Ox 96 95 95 01/02/18 01/02/18 01/02/18 01/02/18 18:42 18:51 19:06 19:21 Pulse 73 75 65 Resp 14 14 B/P (MAP) 116/82 (93) Pulse Ox 97 97 94 01/02/18 01/02/18 01/02/18 01/02/18 19:30 19:30 19:45 20:00 Pulse 71 68 64 Resp 16 0 19 B/P (MAP) 112/71 (85) 112/71 (85) 111/74 (86) Pulse Ox 94 96 95 01/02/18 01/02/18 20:05 20:10 Pulse 69 64 Resp 11 17 Pulse Ox 95 94 Physical Exam General Appearance: The patient is alert, has no immediate need for airway protection and no current signs of toxicity. No acute distress, vital signs sta ble, afebrile HEENT: Pupils equal and round no injection. TMs normal, oropharynx with mild erythema, no exudate or petechiae, mucous. Membranes are moist Respiratory: Chest is non tender, lungs are clear to auscultation. No chest wall tenderness Cardiac: regular rate and rhythm Gastrointestinal: Abdomen is soft and non tender, no masses, bowel sounds normal. No CVA tenderness Musculoskeletal: Neck: Neck is supple and non tender. Extremities have full range of motion and are non tender. Skin: No rashes or lesions. DIFFERENTIAL DIAGNOSIS: After history and physical exam differential diagnosis was considered for abdominal pain including but not limited to appendicitis, cholecystitis, gastritis and urinary tract infection. Additionally,back pain including but not limited to muscular pain, herniated disc, spine fracture, intra-abdominal causes and urinary tract infection. Medical Decision Making Data Points Result Diagram: 01/02/18181801/02/181818 Laboratory Hematology Test 01/02/18 00:00 01/02/18 18:19 01/02/18 19:06 Urine HCG, Qualitative Negative (NEGATIVE) Red Blood Count 4.95 M/uL (4.17-5.56) Mean Corpuscular Volume 91.4 fL (80.0-96.0) Mean Corpuscular Hemoglobin 31.6 pg (26.0-33.0) Mean Corpuscular Hemoglobin Concent 34.6 g/dL (32.0-36.0) Red Cell Distribution Width 12.8 % (11.5-14.5) Mean Platelet Volume 7.6 fL (7.2-11.1) Neutrophils (%) (Auto) 53.9 % (39.4-72.5) Lymphocytes (%) (Auto) 36.7 % (17.6-49.6) Monocytes (%) (Auto) 7.0 % (4.1-12.4) Eosinophils (%) (Auto) 1.4 % (0.4-6.7) Basophils (%) (Auto) 1.0 % (0.3-1.4) Nucleated RBC Relative Count (auto) 0.1 /100WBC Neutrophils # (Auto) 3.6 K/uL (2.0-7.4) Lymphocytes # (Auto) 2.5 K/uL (1.3-3.6) Monocytes # (Auto) 0.5 K/uL (0.3-1.0) Eosinophils # (Auto) 0.1 K/uL (0.0-0.5) Basophils # (Auto) 0.1 K/uL (0.0-0.1) Nucleated RBC Absolute Count (auto) 0.01 K/uL Sodium Level 139 mmol/L (137-145) Potassium Level 4.7 mmol/L (3.5-5.0) Chloride Level 107 mmol/L (98-107) Carbon Dioxide Level 19 mmol/L (22-31) Blood Urea Nitrogen 27 mg/dl (7-18) Creatinine 1.10 mg/dl (0.52-1.04) Glomerular Filtration Rate Calc 53.5 Random Glucose 93 mg/dl (75-110) Calcium Level 9.7 mg/dl (8.4-10.2) Total Bilirubin 0.5 mg/dl (0.2-1.3) Aspartate Amino Transf (AST/SGOT) 36 U/L (0-35) Alanine Aminotransferase (ALT/SGPT) 39 U/L (0-56) Alkaline Phosphatase 87 U/L (0-126) C-Reactive Protein < 0.5 mg/dl (<1.0) Total Protein 7.9 g/dl (6.3-8.2) Albumin 4.3 g/dl (3.5-5.0) Amylase Level 107 U/L (0-110) Lipase 117 U/L (23-300) Urine Color Yellow Urine Clarity Clear Urine pH 5.0 pH (4.8-9.5) Urine Specific [place] 1.017 Urine Protein Negative mg/dL (NEGATIVE) Urine Glucose (UA) Negative mg/dL (NEGATIVE) Urine Ketones Negative mg/dL (NEGATIVE) Urine Blood Negative (NEGATIVE) Urine Nitrite Negative (NEGATIVE) Urine Bilirubin Negative (NEGATIVE) Urine Urobilinogen Negative mg/dL (0.2-1.9) Urine Leukocyte Esterase Negative (NEGATIVE) Urine RBC 1 /HPF (0-2/HPF) Urine WBC 1 /HPF (0-5/HPF) Urine Squamous Epithelial Cells None /LPF (</=FEW) Urine Bacteria Negative /HPF (NONE-FEW) Urine Hyaline Casts Few /LPF (NONE-FEW) Urine Mucus Few /HPF (NONE-FEW) Chemistry Test 01/02/18 00:00 01/02/18 18:19 01/02/18 19:06 Urine HCG, Qualitative Negative (NEGATIVE) White Blood Count 6.7 k/uL (4.5-11.0) Red Blood Count 4.95 M/uL (4.17-5.56) Hemoglobin 15.7 g/dL (12.0-16.0) Hematocrit 45.3 % (34.0-47.0) Mean Corpuscular Volume 91.4 fL (80.0-96.0) Mean Corpuscular Hemoglobin 31.6 pg (26.0-33.0) Mean Corpuscular Hemoglobin Concent 34.6 g/dL (32.0-36.0) Red Cell Distribution Width 12.8 % (11.5-14.5) Platelet Count 258 K/uL (150-450) Mean Platelet Volume 7.6 fL (7.2-11.1) Neutrophils (%) (Auto) 53.9 % (39.4-72.5) Lymphocytes (%) (Auto) 36.7 % (17.6-49.6) Monocytes (%) (Auto) 7.0 % (4.1-12.4) Eosinophils (%) (Auto) 1.4 % (0.4-6.7) Basophils (%) (Auto) 1.0 % (0.3-1.4) Nucleated RBC Relative Count (auto) 0.1 /100WBC Neutrophils # (Auto) 3.6 K/uL (2.0-7.4) Lymphocytes # (Auto) 2.5 K/uL (1.3-3.6) Monocytes # (Auto) 0.5 K/uL (0.3-1.0) Eosinophils # (Auto) 0.1 K/uL (0.0-0.5) Basophils # (Auto) 0.1 K/uL (0.0-0.1) Nucleated RBC Absolute Count (auto) 0.01 K/uL Glomerular Filtration Rate Calc 53.5 Calcium Level 9.7 mg/dl (8.4-10.2) Total Bilirubin 0.5 mg/dl (0.2-1.3) Aspartate Amino Transf (AST/SGOT) 36 U/L (0-35) Alanine Aminotransferase (ALT/SGPT) 39 U/L (0-56) Alkaline Phosphatase 87 U/L (0-126) C-Reactive Protein < 0.5 mg/dl (<1.0) Total Protein 7.9 g/dl (6.3-8.2) Albumin 4.3 g/dl (3.5-5.0) Amylase Level 107 U/L (0-110) Lipase 117 U/L (23-300) Urine Color Yellow Urine Clarity Clear Urine pH 5.0 pH (4.8-9.5) Urine Specific [place] 1.017 Urine Protein Negative mg/dL (NEGATIVE) Urine Glucose (UA) Negative mg/dL (NEGATIVE) Urine Ketones Negative mg/dL (NEGATIVE) Urine Blood Negative (NEGATIVE) Urine Nitrite Negative (NEGATIVE) Urine Bilirubin Negative (NEGATIVE) Urine Urobilinogen Negative mg/dL (0.2-1.9) Urine Leukocyte Esterase Negative (NEGATIVE) Urine RBC 1 /HPF (0-2/HPF) Urine WBC 1 /HPF (0-5/HPF) Urine Squamous Epithelial Cells None /LPF (</=FEW) Urine Bacteria Negative /HPF (NONE-FEW) Urine Hyaline Casts Few /LPF (NONE-FEW) Urine Mucus Few /HPF (NONE-FEW) Urinalysis Test 01/02/18 00:00 01/02/18 19:06 Urine HCG, Qualitative Negative (NEGATIVE) Urine Color Yellow Urine Clarity Clear Urine pH 5.0 pH (4.8-9.5) Urine Specific [place] 1.017 Urine Protein Negative mg/dL (NEGATIVE) Urine Glucose (UA) Negative mg/dL (NEGATIVE) Urine Ketones Negative mg/dL (NEGATIVE) Urine Blood Negative (NEGATIVE) Urine Nitrite Negative (NEGATIVE) Urine Bilirubin Negative (NEGATIVE) Urine Urobilinogen Negative mg/dL (0.2-1.9) Urine Leukocyte Esterase Negative (NEGATIVE) Urine RBC 1 /HPF (0-2/HPF) Urine WBC 1 /HPF (0-5/HPF) Urine Squamous Epithelial Cells None /LPF (</=FEW) Urine Bacteria Negative /HPF (NONE-FEW) Urine Hyaline Casts Few /LPF (NONE-FEW) Urine Mucus Few /HPF (NONE-FEW) Microbiology Microbiology Date/Time Source Procedure Growth Status 01/02/18 19:06 Clean Catch Midstream Ur Urine Culture - Final CONTAMINATED URINE:... Complete EKG/Imaging Imaging Old CT results reviewed from 12/01/17 Date of [facility] [place]: 12/01/2017 ABDOMEN/PELVIS W/O CONTRAST HISTORY: Left flank pain. History of right nephrectomy. COMPARISON: 05/15/2017 and available studies dating to 06/22/2014. TECHNIQUE: Axial images were obtained from the lung bases through the symphysis pubis without intravenous contrast. Sagittal and coronal reformats were performed. One of the following dose optimization techniques was utilized in the performance of this exam: Automated exposure control; adjustment of the mA and/or kV according to the patient's size; or use of an iterative reconstruction technique. Specific details can be referenced in the facility's radiology CT exam operational policy. CONTRAST: None. FINDINGS: Lower chest: There is minimal atelectasis. Liver: Normal. Gallbladder/biliary: Status post cholecystectomy. No intrahepatic or extrahepatic ductal dilation. Pancreas: Mild atrophy. Spleen: Normal. Adrenals: Normal. Kidneys/ureters/bladder: The left kidney, the left ureter, and the bladder are normal. The right kidney is surgically absent. GI/mesentery/peritoneal cavity: There are changes of gastric bypass. There is no bowel obstruction. There is no wall thickening or pericolonic stranding. The appendix is normal. No free air or free fluid. Vessels: No aneurysm. There is minimal calcified atherosclerosis of the infrarenal abdominal aorta. Nodes: Normal. Pelvis: There are phleboliths. Uterus is absent. Bones/vertebra/soft tissues: There is partial sacralization of the left L5 transverse process. There is mild degenerative change of the spine. There is 3 mm anterolisthesis of L3 on L4, unchanged. IMPRESSION: 1. No findings in the abdomen or pelvis to account for the patient's symptoms. ED Course/Re-evaluation Clinical Indication for ER IV: Hydration, IV Access ED Course Patient was admitted to an examination room. H&P was done. The differential diagnoses was considered. On clinical examination. Patient with abdominal pain/flank pain. Patient had a recent CT scan. Diagnostic studies are unremarkable. Patient's treated with IV fluid hydration and medication for s ymptom relief. Patient advised to follow-up with primary care if unimproved in 3-5 days. Decision to Disposition Date: Jan 02, 2018 Decision to Disposition Time: 18:42 Depart Departure Latest Vital Signs Vital Signs Date Time Temp Pulse Resp B/P (MAP) Pulse Ox O2 Delivery O2 Flow Rate FiO2 01/02/18 20:10 64 17 94 01/02/18 20:00 111/74 (86) 01/02/18 17:41 98.2 Room Air Impression: Primary Impression: Viral syndrome Additional Impression: Dehydration Condition: Improved Disposition: HOME OR SELF-CARE Referrals: CORINNE BAH (PCP) Patient Instructions: Dehydration (ED), Viral Syndrome (ED) Additional Instructions: Drink plenty of fluids Take Tylenol as needed for symptom relief Follow-up with your primary care doctor if unimproved in 3 or 4 days. Problem Qualifiers MICHELLE BELL DO Jan 02, 2018 18:10
[2018-01-02 18:29] LABS: PLATELET COUNT, AUTOMATED 258 K/uL (150-450)
[2018-01-02 20:00] VITALS: BP 111/74
== END 2018-01-02 20:22 | disposition home or self-care (01) ==
LOC: ER 18:05
DX: B34.9 Viral infection, unspecified (principal); E86.0 Dehydration
CPT/HCPCS: 81001; 81025; 82150; 83690; 85025; 86140; 87088; 99283; J7030; 82040; 82247; 82310; 82374; 82435; 82565; 82947; 84075; 84132; 84155; 84295; 84450; 84460; 84520

== ENCOUNTER → 2018-01-22 | Outpatient (REF) | payer MEDICAID ==
[2017-10-24 08:37] VITALS: BMI 31.7
== END ==
LOC: ZZSENDIN 11:10
PROVIDERS: ATTEND Urology
DX: C67.9 Malignant neoplasm of bladder, unspecified (principal)
CPT/HCPCS: 88108

== ENCOUNTER → 2018-02-04 | Outpatient (CLI) | payer MEDICAID ==
[2017-10-24 08:37] VITALS: BMI 31.7
[~2018-02-04] MED LIST changes: +BUSP10TA95 PO; +CRAN200C5 PO; +ESTR0.5T18 PO; +FLU60VIA41 IM; +PNEI IM; +PSYL283P7 PO
== END ==
LOC: LAB 11:30
PROVIDERS: ATTEND Emergency Medicine
DX: E78.5 Hyperlipidemia, unspecified (principal); E03.9 Hypothyroidism, unspecified
CPT/HCPCS: 36415; 82306; 82465; 83718; 84478

== ENCOUNTER 2018-02-17 10:51 | Emergency (ER) | payer MEDICAID ==
[2017-10-24 08:37] VITALS: Wt 74.8 kg
[2018-02-17 11:30] VITALS: BP 116/73
[2018-02-17] MEDS ORDERED: NS(*) 0.9% 1000 ML BAG 1,000 ML IV ONE (11:40)
[2018-02-17] MEDS ORDERED: ASPIRIN 81 MG CHEW PO ONE (11:40)
--- NOTE | 2018-02-17 11:40 | ER Report ---
History and Physical Time Seen By MD: 11:39 Hx. of Stated Complaint: Pt. started having palpitations last night, off and on. Denies chest pain. Admits to having shortness of breath, both at rest and with activity. HPI/ROS CHIEF COMPLAINT: Palpitations HISTORY OF PRESENT ILLNESS: This is a 47-year-old female who presents to the emergency department for palpitations. Patient states that last night she had some palpitations while sitting on the couch. The palpitations are intermittent, had some palpitations again this morning became concerned and decided to come in for further evaluation. Patient has intermittent nausea does seem to be associated with her gastric bypass. No vomiting, intermittent diarrhea which al so seems to be associated with her gastric bypass. Patient has no other complaints. No shortness of breath. No recent fevers or chills. No rashes. No headaches. REVIEW OF SYSTEMS: Constitutional: No fever, no chills. Eyes: No discharge. ENT: No sore throat. Cardiovascular: As above. Respiratory: No cough, no shortness of breath. Gastrointestinal: No abdominal pain, no vomiting. Genitourinary: No hematuria. Musculoskeletal: No back pain. Skin: No rashes. Neurological: No headache. Allergies: Coded Allergies: bupropion (Verified Allergy, Severe, RASH, HIVES, SWELLING, 02/17/18) Home Meds Active Scripts Albuterol Sulfate (VENTOLIN HFA) 18 Gm Inh, 2 PUFF INH QID PRN for WHEEZING, #1 INH 0 Refills Prov:LOBITO JENKINS APRN ANCHOR TACK PULLER-C 02/14/18 Amphet Asp/Amphet/D-Amphet (ADDERALL 20 MG TABLET) 20 Mg Tablet, 20 MG PO BID, #60 TAB Prov:OWEN MEMBRENO MD 02/04/18 Paroxetine Hcl (PAXIL) 20 Mg Tablet, 3 TAB PO QDAY, #45 TAB Prov:OWEN MEMBRENO MD 02/04/18 Buspirone Hcl (BUSPIRONE HCL) 10 Mg Tablet, 10 MG PO BID, #30 TAB Prov:OWEN MEMBRENO MD 02/04/18 Reported Medications Psyllium Husk/Aspartame (Metamucil Sugar-Free Powder) 3.4 Gram/5.8 Gram Powder, 2 TSP PO BID 02/04/18 Cranberry Extract (CRANBERRY) Unknown Strength Capsule, PO, CAPSULE 02/04/18 Estradiol (ESTRACE) 0.5 Mg Tablet, 0.5 MG PO DAILY 02/04/18 Multivitamin W/Iron, Minerals (FLINTSTONES COMPLETE) 1 Each Tab.chew, 2 EACH PO DAILY, TAB.CHEW 10/11/16 Iron Polysaccharides Complex (POLYSACCHARIDE IRON 150) 150 Mg Capsule, 27 MG PO QDAY, CAPSULE 10/11/16 Cyanocobalamin (Vitamin B-12) (Vitamin B12) Unknown Strength Tablet, 1000 MCG PO QWEEK 03/16/15 Ascorbic Acid (VITAMIN C) 500 Mg Tab.chew, 500 MG PO BID, TAB.CHEW 03/16/15 Cholecalciferol (Vitamin D3) (VITAMIN D-3) 2,000 Unit Capsule, 2000 UNIT PO QDAY, CAPSULE 03/12/15 Pollard-3 Fatty Acids/Fish Oil (OMEGA 3 FISH OIL SOFTGEL) 1 Each Capsule.dr, 1 EACH PO BID 03/12/15 Omeprazole (OMEPRAZOLE) 40 Mg Capsule.dr, 40 MG PO QDAY 06/24/13 Calcium (Calcium) 500 Mg Tablet, 1000 MG PO DAILY, 0 Refills 02/06/11 Past Medical/Surgical History The patient has a past medical and surgical history of pulmonary embolus, DVT, frequent bronchitis, sinus infections, asthma, pneumonia, peptic ulcers, bowel obstruction, gallbladder disease, hernia, right nephrectomy, arthritis, gastric bypass, iron deficiency anemia, uses marijuana, depression, anxiety, renal cell carcinoma, cholecystectomy, left ulnar nerve release, neck fusion, [place] teeth extraction, tonsillectomy. Reviewed Nurses Notes: Yes Hx Smoking: Yes (1-10 per day for 6 years ) Smoking Status: Current: Every Day Smoker, Light Tobacco Smoker Exposure to Second Hand Smoke?: Yes (family friends smoked) Hx Substance Use Disorder: No (marijuana last use several weeks ago) Hx Alcohol Use: No Constitutional Vital Sign - Last 24 Hours 02/17/18 02/17/18 02/17/18 02/17/18 10:56 10:58 11:00 11:01 Temp 98.0 Pulse 72 75 Resp 16 B/P (MAP) 124/67 (86) 124/67 119/70 (86) Pulse Ox 100 99 O2 Delivery Room Air 02/17/18 02/17/18 02/17/18 02/17/18 11:06 11:11 11:16 11:21 Pulse 69 72 72 74 Resp 7 13 18 17 Pulse Ox 100 99 99 100 02/17/18 02/17/18 02/17/18 02/17/18 11:26 11:30 11:31 11:36 Pulse 67 69 68 Resp 14 18 103 B/P (MAP) 116/73 (87) Pulse Ox 98 97 100 02/17/18 02/17/18 02/17/18 02/17/18 11:41 11:46 11:51 11:56 Pulse 75 70 62 60 Resp 22 11 18 11 Pulse Ox 96 99 100 99 02/17/18 02/17/18 02/17/18 02/17/18 12:11 12:16 12:21 12:26 Pulse 58 65 78 67 Resp 20 19 15 22 Pulse Ox 99 100 100 98 Physical Exam General Appearance: The patient is alert, has no immediate need for airway protection and no signs of toxicity. Eyes: Pupils equal and round no pallor or injection. ENT, Mouth: Mucous membranes are moist. Respiratory: There are no retractions, lungs are clear to auscultation. Cardiovascular: Regular rate and rhythm, no murmurs, clicks or rubs. Gastrointestinal: Abdomen is soft and non tender, no masses, bowel sounds normal. Neurological: Alert and oriented 4. Moving all extremities. Following all commands. No focal neuro deficits. Skin: Warm and dry, no rashes. Musculoskeletal: Neck is supple non tender. Extremities are nontender, nonswollen and have full range of motion. DIFFERENTIAL DIAGNOSIS: After history and physical exam differential diagnosis was considered for cardiac arrhythmia, pulmonary embolus, myocardial infarction, vasovagal event and viral syndrome. Medical Decision Making Data Points Result Diagram: 02/17/18 1120 02/17/18 1120 Laboratory Hematology Test 02/17/18 11:20 Red Blood Count 4.53 M/uL (4.17-5.56) Mean Corpuscular Volume 92.9 fL (80.0-96.0) Mean Corpuscular Hemoglobin 31.4 pg (26.0-33.0) Mean Corpuscular Hemoglobin Concent 33.8 g/dL (32.0-36.0) Red Cell Distribution Width 13.4 % (11.5-14.5) Mean Platelet Volume 7.7 fL (7.2-11.1) Neutrophils (%) (Auto) 61.5 % (39.4-72.5) Lymphocytes (%) (Auto) 28.7 % (17.6-49.6) Monocytes (%) (Auto) 5.9 % (4.1-12.4) Eosinophils (%) (Auto) 3.3 % (0.4-6.7) Basophils (%) (Auto) 0.6 % (0.3-1.4) Nucleated RBC Relative Count (auto) 0.0 /100WBC Neutrophils # (Auto) 4.3 K/uL (2.0-7.4) Lymphocytes # (Auto) 2.0 K/uL (1.3-3.6) Monocytes # (Auto) 0.4 K/uL (0.3-1.0) Eosinophils # (Auto) 0.2 K/uL (0.0-0.5) Basophils # (Auto) 0.0 K/uL (0.0-0.1) Nucleated RBC Absolute Count (auto) 0.00 K/uL Sodium Level 138 mmol/L (137-145) Potassium Level 5.1 mmol/L (3.5-5.0) Chloride Level 108 mmol/L (98-107) Carbon Dioxide Level 23 mmol/L (22-31) Blood Urea Nitrogen 20 mg/dl (7-18) Creatinine 1.10 mg/dl (0.52-1.04) Glomerular Filtration Rate Calc 53.5 Random Glucose 85 mg/dl (75-110) Calcium Level 9.1 mg/dl (8.4-10.2) Total Bilirubin 0.4 mg/dl (0.2-1.3) Aspartate Amino Transf (AST/SGOT) 42 U/L (0-35) Alanine Aminotransferase (ALT/SGPT) 40 U/L (0-56) Alkaline Phosphatase 82 U/L (0-126) Troponin I < 0.012 ng/ml Total Protein 7.1 g/dl (6.3-8.2) Albumin 3.8 g/dl (3.5-5.0) Chemistry Test 02/17/18 11:20 White Blood Count 6.9 k/uL (4.5-11.0) Red Blood Count 4.53 M/uL (4.17-5.56) Hemoglobin 14.2 g/dL (12.0-16.0) Hematocrit 42.0 % (34.0-47.0) Mean Corpuscular Volume 92.9 fL (80.0-96.0) Mean Corpuscular Hemoglobin 31.4 pg (26.0-33.0) Mean Corpuscular Hemoglobin Concent 33.8 g/dL (32.0-36.0) Red Cell Distribution Width 13.4 % (11.5-14.5) Platelet Count 272 K/uL (150-450) Mean Platelet Volume 7.7 fL (7.2-11.1) Neutrophils (%) (Auto) 61.5 % (39.4-72.5) Lymphocytes (%) (Auto) 28.7 % (17.6-49.6) Monocytes (%) (Auto) 5.9 % (4.1-12.4) Eosinophils (%) (Auto) 3.3 % (0.4-6.7) Basophils (%) (Auto) 0.6 % (0.3-1.4) Nucleated RBC Relative Count (auto) 0.0 /100WBC Neutrophils # (Auto) 4.3 K/uL (2.0-7.4) Lymphocytes # (Auto) 2.0 K/uL (1.3-3.6) Monocytes # (Auto) 0.4 K/uL (0.3-1.0) Eosinophils # (Auto) 0.2 K/uL (0.0-0.5) Basophils # (Auto) 0.0 K/uL (0.0-0.1) Nucleated RBC Absolute Count (auto) 0.00 K/uL Glomerular Filtration Rate Calc 53.5 Calcium Level 9.1 mg/dl (8.4-10.2) Total Bilirubin 0.4 mg/dl (0.2-1.3) Aspartate Amino Transf (AST/SGOT) 42 U/L (0-35) Alanine Aminotransferase (ALT/SGPT) 40 U/L (0-56) Alkaline Phosphatase 82 U/L (0-126) Troponin I < 0.012 ng/ml Total Protein 7.1 g/dl (6.3-8.2) Albumin 3.8 g/dl (3.5-5.0) EKG/Imaging EKG Interpretation 12 lead EKG: Times EKG 1136. Rhythm: Normal sinus rhythm, ventricular rate 70 bpm. [place]: normal QRS: normal ST segments: No ST depression or elevation identified. No significant changes from the 10/10/2017 EKG. Imaging Location: [facility] - [place] Patient: Lisseth Adame : 1970 Visit/Account:[id number] Date of Sevice: 02/17/2018 2 VIEWS CHEST INDICATION: Chest pain shortness breath and coughing. COMPARISON: 05/08/2017. FINDINGS: Cardiomediastinal silhouette and pulmonary vessels within normal limits. There is no focal infiltrate or lobar consolidation. There is no pneumothorax or pleural effusion. No nodule. Upper abdomen is unremarkable. Surgical clips seen in the upper abdomen. No acute bony abnormality. IMPRESSION: 1. No acute cardiopulmonary process. Report Dictated By: Brady Bond at 02/17/2018 12:20 PM Report E-Signed By: Brady Bond at 02/17/2018 12:22 PM WSN:[id number] ED Course/Re-evaluation Clinical Indication for ER IV: Hydration, IV Access ED Course The patient was admitted to room. A history of physical obtained. Differential diagnoses were considered. IV was started. A CBC, CMP and troponin were obtained. EKG showing normal sinus rhythm. Two-view chest x-ray negative for any acute cardiopulmonary process.CBC unremarkable, chemistry showing potassium 5.1, chloride 108, BUN 20, creatinine 1.1. I reviewed the laboratory studies with the patient. Given a 1 L normal saline bolus. Given 324 mg chewable aspirin. I did tell the patient I don't have a clear acclamation is why she is having the palpitations, I did place her on a 24-hour Holter monitor, she will follow-up with Dr. Membreno for the results. Patient expressed understanding was discharged home. Encouraged to return to the ER for any other concerns or worsening symptoms. The patient was in agreement with this plan of care. Decision to Disposition Date: Feb 17, 2018 Decision to Disposition Time: 12:57 Depart Departure Latest Vital Signs Vital Signs Date Time Temp Pulse Resp B/P (MAP) Pulse Ox O2 Delivery O2 Flow Rate FiO2 02/17/18 12:26 67 22 98 02/17/18 11:30 116/73 (87) 02/17/18 10:58 98.0 Room Air Impression: Primary Impression: Palpitations Condition: Improved Disposition: HOME OR SELF-CARE Referrals: CORINNE BAH (PCP) OWEN MEMBRENO MD 5 Days Patient Instructions: Holter Monitoring (ED), Palpitations (ED) Additional Instructions: ER laboratory studies, EKG and chest x-ray all looked good today. I don't have a clear explanation as to why you're having these palpitations, the refore I did place her on a Holter monitor, the results will go to Dr. Membreno. I would certainly encourage her to continue drinking fluids. Plenty of rest. Avoid caffeine altogether. Follow-up with Dr. Membreno within 1 week for reevaluation. Return to the emergency department for any other concerns or worsening symptoms. [facility] Feb 17, 2018 11:40
--- NOTE | 2018-02-17 11:44 | EKG ---
FACILITY: [facility] PATIENT NAME: ADRI LEGER : [id number] MR: [id number] V: [id number] EXAM DATE: ORDERING PHYSICIAN: [facility]SE TECHNOLOGIST: ADINA Liz Reason : PALPITATIONS Blood Pressure : / mmHG Vent. Rate : 070 BPM Atrial Rate : 070 BPM P-R Int : 140 ms QRS Dur : 084 ms QT Int : 402 ms P-R-T Axes : 060 033 047 degrees QTc Int : 434 ms Normal sinus rhythm with sinus arrhythmia Possible Left atrial enlargement Low voltage QRS Borderline ECG When compared with ECG of 10-OCT-2017 11:17, No significant change was found Confirmed by KEKE FLOWERS ([id number]) on 02/18/2018 6:35:17 AM Referred By: Confirmed By:KEKE FLOWERS
[2018-02-17 11:46] LABS: PLATELET COUNT, AUTOMATED 272 K/uL (150-450)
--- NOTE | 2018-02-17 12:25 | RADIOLOGY IMAGING REPORT ---
FACILITY: [facility] PATIENT NAME: Lisseth Adame : 1970 MR: [id number] V: [id number] EXAM DATE: ORDERING PHYSICIAN: [facility]SE TECHNOLOGIST: Location: [facility] Patient: Lisseth Adame : 1970 Visit/Account:[id number] Date of Sevice: 02/17/2018 2 VIEWS CHEST INDICATION: Chest pain shortness breath and coughing. COMPARISON: 05/08/2017. FINDINGS: Cardiomediastinal silhouette and pulmonary vessels within normal limits. There is no focal infiltrate or lobar consolidation. There is no pneumothorax or pleural effusion. No nodule. Upper abdomen is unremarkable. Surgical clips seen in the upper abdomen. No acute bony abnormality. IMPRESSION: 1. No acute cardiopulmonary process. Report Dictated By: Brady Bond at 02/17/2018 12:20 PM Report E-Signed By: Brady Bond at 02/17/2018 12:22 PM WSN:[email or web address]
--- NOTE | 2018-02-18 16:48 | RT HOLTER TEST ---
[place] [facility] [place] ADRI LEGER : [id number] MR: [id number] V: [id number] EXAM DATE: ORDERING PHYSICIAN: [facility]SE TECHNOLOGIST: ANIKA Hook-up date: 2018-02-17 12:45:00 Duration: 22:48:00 Test Indications: PALPITATIONS Medications: N/A 362253 QRS complexes 229 Ventricular ectopics which represent <1 % of total QRS comp. 15 Supraventricular ectopics which represent <1 % of total QRS comp. * Paced QRS complexes which represent % of total QRS comp. VENTRICULAR ECTOPY 229 Isolated 0 Bigeminal Cycles 0 Couplets 0 Runs 0 Beats in Runs * Beats LONGEST at * BPM at :: -- * Beats FASTEST at * BPM at :: -- SUPRAVENTRICULAR ECTOPY 10 Isolated 1 Couplets 1 Runs 3 Beats in Runs 3 Beats LONGEST at 141 BPM at 02:58:02 2018-02-18 3 Beats FASTEST at 141 BPM at 02:58:02 2018-02-18 HEART RATES 44 MIN at 04:14:23 2018-02-18 80 AVG 127 MAX at 09:02:28 2018-02-18 LONGEST RR 1.480 secs at 04:52:46 2018-02-18 S-T LEVELS Channel 1 -12.800 mm MIN at 12:45:00 2018-02-17 -12.800 mm MAX at 12:45:00 2018-02-17 Channel 2 -12.800 mm MIN at 12:45:00 2018-02-17 -12.800 mm MAX at 12:45:00 2018-02-17 Channel 3 -12.800 mm MIN at 12:45:00 2018-02-17 -12.800 mm MAX at 12:45:00 2018-02-17 The patient had no arrhythmias with the reported symptoms or symptom triggered events. She was predo minantly in a sinus rhythm, but had occasional ventricular ectopy (VE) and rare supraventricular ectopy (SVE). There was one 3 beat run of SVE at a rate of 141 beats per minute. Confirmed by LOAN POLLARD ([id number]) on 02/18/2018 4:47:52 PM Referred By: Overread By: LOAN POLLARD
== END 2018-02-17 13:20 | disposition home or self-care (01) ==
LOC: ER 11:50
DX: R00.2 Palpitations (principal); F17.210 Nicotine dependence, cigarettes, uncomplicated
CPT/HCPCS: 71046; 84484; 85025; 93005; 93225; 96360; 99284; J7030; 82040; 82247; 82310; 82374; 82435; 82565; 82947; 84075; 84132; 84155; 84295; 84450; 84460; 84520; 93226

== ENCOUNTER → 2018-02-24 | Outpatient (CLI) | payer MEDICAID ==
[2017-10-24 08:37] VITALS: BMI 31.7
== END ==
LOC: LAB 11:00
PROVIDERS: ATTEND Emergency Medicine
DX: R74.8 Abnormal levels of other serum enzymes (principal)
CPT/HCPCS: 36415; 82103; 83516; 84160; 84165; 86706; 86707; 86803; 87340; 87350

== ENCOUNTER → 2018-03-05 | Outpatient (CLI) | payer MEDICAID ==
[2017-10-24 08:37] VITALS: BMI 31.7
[~2018-03-05] MED LIST changes: +ATOR20TA65 PO; +ROS10 PO; +SULF-198 PO
== END ==
LOC: LAB 10:51
PROVIDERS: ATTEND Emergency Medicine
DX: R39.15 Urgency of urination (principal)
CPT/HCPCS: 81001; 87088

== ENCOUNTER → 2018-03-11 | Outpatient (CLI) | payer MEDICAID ==
[2017-10-24 08:37] VITALS: BMI 31.7
--- NOTE | 2018-03-11 12:13 | RADIOLOGY IMAGING REPORT ---
FACILITY: [facility] - [place] PATIENT NAME: Lisesth Adame : 1970 MR: [id number] V: [id number] EXAM DATE: ORDERING PHYSICIAN: OWEN FORD TECHNOLOGIST: Location: [facility] Patient: Lisseth Adame : 1970 Visit/Account:[id number] Date of Sevice: 03/11/2018 DEXA Scan Clinical history: Osteopenia. Comparison: None available. LUMBAR SPINE: The bone mineral density (BMD) measured from L1-L4 correlates with a Z-score -0.5 and a T-score of -0 .3 which is Normal as defined by the World Health Organization. The corresponding risk of fracture i n the lumbar spine is Not increased compared with a young adult reference population. HIP: Bone mineral density (BMD) measured in the Left total hip region correlates with a Z-score by 0.6 and a T-score of -0.7 which is Normal as defined by the World Health Organization. The corresponding ri sk of fracture in the hip is 1-2 times increased compared with a young adult reference population. T score left femoral neck -1 Bone mineral density (BMD) measured in the Femoral Neck region measures 0.893 g/cm2. Impression: 1. Lumbar spine: Normal. 2. Left Hip: Normal. 3. Femoral Neck: Bone Mineral Density is 0.893 g/cm2 The next DEXA scan of this patient should include the following sites: L1-L4 and the left hip. FRAX? WHO Fracture Risk Assessment Tool link: <http://www.shef.ac.uk/FRAX/tool.jsp?[email or web address]> PLEASE NOTE: 1) The World Health Organization defines low BMD as follows: T-score Normal > -1 Osteopenia < -1 and > -2.5 Osteoporosis < -2.5 without fractures Established osteoporosis < -2.5 with fractures 2) In general, you may wish to consider: Diagnosis Treatment Follow-up DEXA Normal BMD Prevention 2-3 years Osteopenia Prevention/therapy 1-2 years Osteoporosis Therapy Yearly 3) Fracture risk estimated from the T-score is more accurate for vertebral fractures (often spontane ous) than for hip fractures. Report Dictated By: Radha Puente MD at 03/11/2018 12:08 PM Report E-Signed By: Radha Puente MD at 03/11/2018 12:09 PM WSN:[email or web address]
== END ==
LOC: RAD 01:51
PROVIDERS: ATTEND Emergency Medicine
DX: Z87.39 Personal history of other diseases of the musculoskeletal system and connective tissue (principal)
CPT/HCPCS: 77080

== ENCOUNTER → 2018-03-28 | Outpatient (CLI) | payer MEDICAID ==
[2017-10-24 08:37] VITALS: BMI 31.7
[~2018-03-28] MED LIST changes: +ALPR-429 PO
--- NOTE | 2018-03-28 15:47 | RADIOLOGY IMAGING REPORT ---
FACILITY: [facility] [place] PATIENT NAME: Lisseth Adame : 1970 MR: [id number] V: [id number] EXAM DATE: ORDERING PHYSICIAN: LORENA SIMS TECHNOLOGIST: [place] [facility] [place] Lisseth Adame : 1970 Visit/Account:[id number] Date of Sevice: 03/28/2018 EXAMINATION: Bone skeletal survey HISTORY: History of kidney cancer, concern for melanoma. COMPARISON: CT abdomen and pelvis from 12/01/2017 and chest radiograph from 02/17/2018. FINDINGS: A bone survey is performed. No focal lytic or sclerotic bony lesions. Mild disc space narrowing and bony spurring at C5-6. Partial sacralization of L5 on the left. Disc arthroplasty at C6-7. There are surgical clips in the bilateral upper abdomen. Lungs are clear. IMPRESSION: No evidence of bone metastases. Report Dictated By: Torie Golden MD at 03/28/2018 3:37 PM Report E-Signed By: Torie Golden MD at 03/28/2018 3:41 PM WSN:[email or web address]
== END ==
LOC: RAD 14:28
PROVIDERS: ATTEND Internal Medicine Hematology
DX: D47.2 Monoclonal gammopathy (principal)
CPT/HCPCS: 77075

== ENCOUNTER 2018-04-10 12:06 | Outpatient (RCR) | payer MEDICAID ==
[2017-10-24 08:37] VITALS: Wt 84.5 kg
[2018-03-27 08:07] VITALS: BP 118/77
[2018-03-27 08:56] LABS: PLATELET COUNT, AUTOMATED 248 K/uL (150-450)
--- NOTE | 2018-03-27 09:38 | EL-TARABILY ONCOLOGY NOTE ---
EVENT DATE: March 27, 2018 DIAGNOSES 1. 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 2. Pulmonary embolism. 3. Depression. 4. Asthma/chronic obstructive pulmonary disease. 5. Plasma cell dyscrasia. CHIEF COMPLAINT Patient is here today for evaluation and management of her recently diagnosed plasma cell dyscrasia. ONCOLOGY HISTORY The patient is a 47-year-old female who was diagnosed with transitional cell carcinoma of the right renal pelvis in September 2006. The patient was found to have a mass in the right kidney so on September 27, 2006, the patient had a right kidney [place] biopsy which showed low grade papillary urothelial carcinoma. On October 28, 2006, the patient had a right nephroureterectomy and pathology for the ureters was negative for malignancy and for the nephrectomy was positive for papillary noninvasive carcinoma with clear margin, low grade transitional cell carcinoma. After that, the patient did not receive any adjuvant treatment. A followup CT of abdomen and pelvis on July 06, 2009 revealed 2.07 cm partially enhancing soft tissue nodule density in the right nephrectomy bed, which was increasing in size. On July 18, 2009, a CT-guided biopsy of the right nephrectomy bed was done and pathology was positive for transitional cell carcinoma. On August 08, 2009, the patient had resection of that mass with liver resection, and the pathology came back positive for 2 cm poorly differentiated metastatic tumor consistent with transitional cell carcinoma with clear margins. She was diagnosed with pulmonary embolism by CT-A of the chest done on October 15, 2009 involving the right lower lobe. The patient received two cycles of cisplatin and gemcitabine after her surgery for recurrent transitional cell carcinoma of the right renal pelvis. She developed bone marrow suppression, nausea and vomiting with her treatment, so her treatment was modified. Her pathology from surgery for recurrent transitional cell carcinoma done on August 08, 2009 was clear for a local recurrence and liver involvement due to direct extension. The tumor was affixed to the apex and lower end of the right lobe of the liver and not a systemic metastasis. The patient received chemotherapy with cisplatin and gemcitabine between September 20, 2009 through February 22, 2010. She received a total of six cycles. This was followed by radiation therapy to the right nephrectomy bed. She received a total of 39.6 Gy between March 13, 2010 through April 22, 2010. Plasma cell dyscrasia: Patient has been evaluated recently by Dr. Membreno, her primary care provider, for being extremely fatigued and feeling unwell and her evaluation showed negative hepatitis B and normal alpha-1 antitrypsin, normal antimitochondrial antibody. Her evaluation also showed serum protein electrophoresis, which showed normal quantitative immunoglobulins. IgG level was 1,260. IgA was 197. IgM was 45. Serum protein electrophoresis showed 0.57 g/dl, monoclonal protein in the beta region and 0.47 g/dl monoclonal protein of IgG lambda in the gamma region. Patient having some occasional drenching sweating and generalized bone aches all over, especially the back and limbs. HISTORY OF PRESENT ILLNESS Patient is here today evaluation of her recently diagnosed plasma cell dyscrasia. She is complaining of occasional drenching sweating. She has occasional epistaxis. She has alternating diarrhea and constipation. She has frequent urinary tract infection. She has generalized pain all over her body, especially the back and limbs. She has occasional headache. She bruises easily. She is extremely weak, tired and fatigued. PAST MEDICAL HISTORY 1. Asthma and COPD. 2. History of pneumonia. 3. Transitional cell carcinoma of the right renal pelvis with recurrence. 4. Depression. 5. History of pulmonary embolus. 6. Bleeding peptic ulcer disease diagnosed in December of 2009 with positive H. pylori treated with antibiotic. 7. History of C. diff. colitis December 2009 treated with Flagyl. PAST SURGICAL HISTORY 1. Tonsillectomy in 1973. 2. Surgical repair of fractured left toe in 1979. 3. [place] tooth extraction in 1987. 4. section in 1989, 1991 and 1997. 5. Surgical resection of the left foot bone spur in 1989. 6. Carpal tunnel release in 1992 and 1993. 7. Bilateral ulnar nerve translocation in 1993. 8. Total abdominal hysterectomy for menorrhagia in 1999, ovaries left in place. 9. Gastric bypass at [facility] in 2004. 10. Right nephroureterectomy in 2006. 11. Surgical reduction of an internal incarcerated small bowel hernia in 2008. 12. August 2009, the patient had surgical resection of a 2 cm recurrent, poorly differentiated transitional cell carcinoma from the previous right nephrectomy bed along with right twelfth rib dissection. SOCIAL HISTORY The patient is a homemaker. She is a . She has two daughters. She quit smoking, but she smoked a half to one pack a day for fifteen years. She quit August 2009. Denies any abuse of alcohol or drugs. FAMILY HISTORY Unknown because the patient was adopted. CURRENT MEDICATIONS 1. Vitamin B12, 1 mg subcutaneously monthly. 2. [place] 3-6-9 one tablet p.o. daily. 3. Vitamin C one tablet daily. 4. Calcium citrate one tablet daily. 5. Multivitamins one tablet daily. 6. Albuterol inhaler. 7. Adderall 20 mg daily. ALLERGIES WELLBUTRIN which causes hives, rash and swelling. REVIEW OF SYSTEMS CONSTITUTIONAL: Patient has occasional drenching sweating. HEENT: Ears: No tinnitus or hearing problem. Nose: She has occasional epistaxis. Throat: No sore throat or mouth ulcers. Eyes: No diplopia or visual changes. RESPIRATORY: No shortness of breath. No cough, expectoration or hemoptysis. CARDIOVASCULAR: No chest pain, orthopnea, or paroxysmal nocturnal dyspnea (PND). No edema. No palpitations. GASTROINTESTINAL: She has alternating diarrhea and constipation. GENITOURINARY: She has frequent urinary tract infection. MUSCULOSKELETAL: She has generalized pain all over, especially over the back and limbs. NEUROLOGICAL: She has occasional headache. HEMATOLOGIC/LYMPHATIC: She bruises easily. She is weak, tired and fatigued. SKIN: No skin rash or lumps. PSYCHIATRIC: No anxiety or depression. PHYSICAL EXAMINATION GENERAL: Looks stable. Well-developed, well-nourished, and in no acute distress. VITAL SIGNS: Blood pressure 118/77, pulse 89 per minute, respirations 16 per minute, temperature 97.5, pulse ox 96% on room air. HEENT: Head: Atraumatic. No sinus tenderness to palpation. Eyes: No icterus or conjunctivitis. Mouth and Throat: No oral thrush or mucositis. NECK: Supple. No cervical or supraclavicular lymphadenopathy. LUNGS: Clear to auscultation and percussion bilaterally. HEART: Regular rate and rhythm. No gallops, murmurs, clicks or rubs. ABDOMEN: Soft and lax. No tenderness. No hepatosplenomegaly. No masses. EXTREMITIES: No cyanosis, clubbing or edema. LYMPHATICS: No peripheral lymphadenopathy. NEUROLOGICAL: Conscious, alert and oriented x3. No focal motor or sensory deficits. PSYCHIATRIC: Mood and affect appear normal. SKIN: No skin rash, bruise or purpuric eruption. DIAGNOSTIC DATA Serum protein immunoelectrophoresis showed 0.47 g/dl. IgG lambda monoclonal protein was normal quantitative immunoglobulin. ASSESSMENT 1. Plasma cell dyscrasia with abnormal serum protein electrophoresis done for being unwell and extremely fatigued. The serum protein immunoelectrophoresis shows a monoclonal protein in the gamma region of 0.47 g/dl of IgG lambda. It shows also monoclonal protein in the beta region of 0.57 g/dl. Quantitative immunoglobulins were normal. Patient could have benign formal plasma cell dyscrasia like monoclonal gammopathy of no significance but she could have also a malignant form of the disease like multiple myeloma. Having the amount of the monoclonal protein ____ and the quantitative immunoglobulins is normal goes with monoclonal gammopathy unknown significance rather than multiple myeloma. I am planning to do CBC, chem panel, LDH, uric acid and myeloma profile including beta-2 microglobulin, free light chain assay and a 24-hour urine for urine protein electrophoresis and Bence-Hernandez protein. I am planning to also check skeletal bone survey. I will see the patient after the above and if there is suspicion of multiple myeloma I will proceed with bone marrow biopsy after that for confirmation. I explained that to the patient. She is agreeable to the plan of management. 2. History of iron deficiency anemia in the past. 3. Locally recurrent transitional cell carcinoma of the right renal pelvis with involvement of the nephrectomy bed with invasion of the liver. Patient initially had right nephroureterectomy in 2006 with recurrence in July 2009. She had resection of the mass from the right nephrectomy bed which was invading the liver on August 08, 2009. Invasion of the liver was due to local extension rather than from metastatic spread. After surgery, she received chemotherapy with cisplatin and gemcitabine. She received 6 cycles between September 20, 2009 through February 22, 2010. After that, patient received radiation therapy to the nephrectomy bed and she received a total of 39.6 Gy between March 13, 2010 through April 22, 2010. She is currently in complete remission. 3. History of pulmonary embolism, status post 6 months of anticoagulation. 4. Mild renal impairment, most probably from her nephrectomy. PLAN 1. CBC, chem panel, LDH, uric acid and myeloma profile including 24-hour urine for urine protein electrophoresis and Bence-Hernandez protein. 2. Schedule bone survey. 3. Patient to return after the above for further evaluation and management. 4. Patient to contact us for any new concerns or complaints. [facility]
[2018-04-10 12:18] VITALS: BP 113/72
--- NOTE | 2018-04-10 17:04 | EL-TARABILY ONCOLOGY NOTE ---
EVENT DATE: April 10, 2018 DIAGNOSES 1. 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 2. Pulmonary embolism. 3. Depression. 4. Asthma/chronic obstructive pulmonary disease. 5. Plasma cell dyscrasia. CHIEF COMPLAINT Patient is here today for followup of her recently diagnosed plasma cell dyscrasia. ONCOLOGY HISTORY The patient is a 47-year-old female who was diagnosed with transitional cell carcinoma of the right renal pelvis in September 2006. The patient was found to have a mass in the right kidney on September 27, 2006. The patient had a right kidney [place] biopsy which showed low-grade papillary urothelial carcinoma. On October 28, 2006, the patient had a right nephroureterectomy, and pathology for the ureters was negative for malignancy and for the nephrectomy was positive for papillary noninvasive carcinoma with clear margin, low-grade transitional cell carcinoma. After that, the patient did not receive any adjuvant treatment. A followup CT of abdomen and pelvis on July 06, 2009, revealed 2.07 cm partially enhancing soft tissue nodule density in the right nephrectomy bed, which was increasing in size. On July 18, 2009, a CT-guided biopsy of the right nephrectomy bed was done, and pathology was positive for transitional cell carcinoma. On August 08, 2009, the patient had resection of that mass with liver resection, and the pathology came back positive for 2 cm poorly differentiated metastatic tumor consistent with transitional cell carcinoma with clear margins. She was diagnosed with pulmonary embolism by CTA of the chest done on October 15, 2009, involving the right lower lobe. The patient received two cycles of cisplatin and gemcitabine after her surgery for recurrent transitional cell carcinoma of the right renal pelvis. She developed bone marrow suppression, nausea, and vomiting with her treatment, so her treatment was modified. Her pathology from surgery for recurrent transitional cell carcinoma done on August 08, 2009, was clear for a local recurrence and liver involvement due to direct extension. The tumor was affixed to the apex and lower end of the right lobe of the liver and not a systemic metastasis. The patient received chemotherapy with cisplatin and gemcitabine between September 20, 2009, through February 22, 2010. She received a total of six cycles. This was followed by radiation therapy to the right nephrectomy bed. She received a total of 39.6 Gy between March 13, 2010, through April 22, 2010. Plasma cell dyscrasia: Patient has been evaluated recently by Dr. Membreno, her primary care provider, for being extremely fatigued and feeling unwell, and her evaluation showed negative hepatitis B, normal alpha-1 antitrypsin, and normal antimitochondrial antibody. Her evaluation also showed serum protein electrophoresis, which showed normal quantitative immunoglobulins. IgG level was 1,260. IgA was 197. IgM was 45. Serum protein electrophoresis showed 0.57 g/dL, monoclonal protein in the beta region, and 0.47 g/dL monoclonal protein of IgG lambda in the gamma region. Patient having some occasional drenching sweating and generalized bone aches all over, especially the back and limbs. Patient had a skeletal bone survey done on the March, which came back negative for bone lesions. Her urine protein electrophoresis shows urine free kappa light chain of 7.2 and free lambda light chain of 4.21. Both were high, while the kappa to lambda free light chain ratio was 1.71 which is a little bit low. Beta-2 microglobulin was mildly elevated at 2.8. Serum free kappa light chain was 2.76, and lambda free light chain was high at 11.3. The kappa to lambda free light chain ratio was low at 0.24. IgG level was normal at 1220, IgA was normal at 201, and IgM was normal at 46. Serum protein immunoelectrophoresis showed monoclonal protein spike 0.64 g/dL in the beta region and 0.53 g/dL in the gamma region, which was IgG lambda monoclonal protein. HISTORY OF PRESENT ILLNESS Patient is here today followup of her plasma cell dyscrasia. She is complaining of nausea and constipation. She has pain in her back and legs. She is weak, tired, and fatigued. PAST MEDICAL HISTORY 1. Asthma and COPD. 2. History of pneumonia. 3. Transitional cell carcinoma of the right renal pelvis with recurrence. 4. Depression. 5. History of pulmonary embolus. 6. Bleeding peptic ulcer disease diagnosed in December of 2009 with positive H. pylori, treated with antibiotic. 7. History of C. diff colitis December 2009, treated with Flagyl. PAST SURGICAL HISTORY 1. Tonsillectomy in 1973. 2. Surgical repair of fractured left toe in 1979. 3. [place] tooth extraction in 1987. 4. section in 1989, 1991, and 1997. 5. Surgical resection of the left foot bone spur in 1989. 6. Carpal tunnel release in 1992 and 1993. 7. Bilateral ulnar nerve translocation in 1993. 8. Total abdominal hysterectomy for menorrhagia in 1999. Ovaries left in place. 9. Gastric bypass at [facility] in 2004. 10. Right nephroureterectomy in 2006. 11. Surgical reduction of an internal incarcerated small bowel hernia in 2008. 12. August 2009, the patient had surgical resection of a 2 cm recurrent, poorly differentiated transitional cell carcinoma from the previous right nephrectomy bed along with right twelfth rib dissection. SOCIAL HISTORY The patient is a homemaker. She is a . She has two daughters. She quit smoking, but she smoked a half to one pack a day for 15 years. She quit August 2009. Denies any abuse of alcohol or drugs. FAMILY HISTORY Unknown because the patient was adopted. CURRENT MEDICATIONS 1. Vitamin B12, 1 mg subcutaneously monthly. 2. [place] 3-6-9 one tablet p.o. daily. 3. Vitamin C one tablet daily. 4. Calcium citrate one tablet daily. 5. Multivitamins one tablet daily. 6. Albuterol inhaler. 7. Adderall 20 mg daily. ALLERGIES WELLBUTRIN which causes hives, rash, and swelling. REVIEW OF SYSTEMS CONSTITUTIONAL: No appetite or weight change. No fever, chills, or sweating. No recent infection. HEENT: Ears: No tinnitus or hearing problem. Nose: No nasal discharge or epistaxis. Throat: No sore throat or mouth ulcers. Eyes: No diplopia or visual changes. RESPIRATORY: No shortness of breath. No cough, expectoration, or hemoptysis. CARDIOVASCULAR: No chest pain, orthopnea, or paroxysmal nocturnal dyspnea (PND). No edema. No palpitations. GASTROINTESTINAL: She has nausea and constipation. No vomiting. No diarrhea. No change in bowel movements. No heartburn or swallowing difficulties. No abdominal pain. No jaundice. No hematemesis, melena, or rectal bleeding. GENITOURINARY: No hematuria or dysuria. MUSCULOSKELETAL: She has pain in the back and legs. NEUROLOGICAL: No tingling or numbness in the hands or feet. No headaches or convulsions. HEMATOLOGIC/LYMPHATIC: No bleeding or easy bruising. She is weak, tired, and fatigued. No enlarged lymph nodes. SKIN: No skin rash or lumps. PSYCHIATRIC: No anxiety or depression. PHYSICAL EXAMINATION GENERAL: Looks stable. Well developed, well nourished, and in no acute distress. VITAL SIGNS: Blood pressure 113/72, pulse 74 per minute, respirations 16 per minute, temperature 97.2, pulse ox 99% on room air. HEENT: Head: Atraumatic. No sinus tenderness to palpation. Eyes: No icterus or conjunctivitis. Mouth and throat: No oral thrush or mucositis. NECK: Supple. No cervical or supraclavicular lymphadenopathy. LUNGS: Clear to auscultation and percussion bilaterally. HEART: Regular rate and rhythm. No gallops, murmurs, clicks, or rubs. ABDOMEN: Soft and lax. No tenderness. No hepatosplenomegaly. No masses. EXTREMITIES: No cyanosis, clubbing, or edema. LYMPHATICS: No peripheral lymphadenopathy. NEUROLOGICAL: Conscious, alert, and oriented times three. No focal motor or sensory deficits. PSYCHIATRIC: Mood and affect appear normal. SKIN: No skin rash, bruise, or purpuric eruption. DIAGNOSTIC DATA CBC showed white 4.7, hemoglobin 14.4, hematocrit 42.3, platelets 248,000. Chem panel totally normal except chloride 111, carbon dioxide 19, creatinine 1.1, blood sugar 112. Uric acid was 7.7. AST was 40. Skeletal bone survey done on the March was negative for lytic bone lesions. Urine protein electrophoresis showed free kappa light chain of 7.2 and urine free lambda light chain of 4.21. The urine free kappa to lambda ratio was 1.71. Beta-2 microglobulin was 2.8. Serum kappa free light chain was 2.76, and lambda free light chain in the serum was 11.3. The kappa to lambda free light chain ratio was 0.24. IgG was normal at 1220, IgA was 201, and IgM was 46. Serum protein immunoelectrophoresis showed a monoclonal peak in the beta region of 0.64 g/dL and another peak of 0.53 g/dL in the gamma region. Immunoelectrophoresis was positive for IgG lambda monoclonal protein. ASSESSMENT 1. Monoclonal gammopathy, unknown significance, with monoclonal protein and peripheral blood at the gamma region of 0.53 g/dL, IgG lambda. Skeletal bone survey was negative for lytic bone lesions. Quantitative immunoglobins all came within the normal range. These results are really significant for monoclonal gammopathy of unknown significance. I talked to the patient today about that disease. My plan is to continue surveillance. I will see her again in six months with CBC, chemistry panel, LDH, uric acid, and myeloma profile at that time. If at any time there would be increase in amount of the monoclonal protein, then we will consider further workup at that time. Patient is aware of that, and she is happy that it did not heel turner to be a malignant disease. 2. History of iron deficiency anemia in the past. 3. Locally recurrent renal cell carcinoma of the right renal pelvis with involvement of the nephrectomy bed with invasion of the liver. Patient initially had right nephroureterectomy in 2006 with recurrence July 2009. She had resection of the mass from the right nephrectomy bed which was invading the liver on August 08, 2009. Invasion of the liver was due to local extension rather than from metastatic spread. After surgery, she received chemotherapy with cisplatin and gemcitabine. She received six cycles between September 20, 2009, through February 22, 2010. After that, patient received radiation therapy to the nephrectomy bed, and she received a total of 39.6 Gy between March 13, 2010, through April 22, 2010. She is currently in complete remission. 4. History of pulmonary embolism, status post six months of anticoagulation. 5. Mild renal impairment, most probably from her nephrectomy. PLAN 1. Continue followup. 2. Patient to return in six months with CBC, chem panel, LDH, uric acid, and myeloma profile. 3. Patient to contact us for any new concern or complaints. [facility]
[2018-04-11] MEDS ORDERED: ALB18R INH (14:38)
[2018-04-20] MEDS ORDERED: LISD20CA4 PO (16:52)
[2018-04-20] MEDS ORDERED: [UNRECOGNIZED DRUG - OTHER] (16:52)
[2018-04-20] MEDS ORDERED: [UNRECOGNIZED DRUG - OTHER] PO (16:52)
[2018-04-20] MEDS ORDERED: OMEP-125 PO (16:59)
[2018-04-20] MEDS ORDERED: OXYC-865 PO (19:57)
[2018-04-20] MEDS ORDERED: ONDA4TAB9 PO (19:57)
[2018-05-02] MEDS ORDERED: ALB18R INH (10:26)
[2018-05-04] MEDS ORDERED: AMPH12.53 PO (10:32)
[2018-05-05] MEDS ORDERED: HYDR-4225 PO (14:08)
[2018-05-05] MEDS ORDERED: PRAV40TA78 PO (14:09)
== END 2018-05-12 13:26 | disposition home or self-care (01) ==
LOC: ONC 12:06
PROVIDERS: ATTEND Internal Medicine Hematology
DX: D47.2 Monoclonal gammopathy (principal); Z92.21 Personal history of antineoplastic chemotherapy; Z92.3 Personal history of irradiation; Z87.891 Personal history of nicotine dependence; Z86.711 Personal history of pulmonary embolism; Z90.5 Acquired absence of kidney; N18.9 Chronic kidney disease, unspecified; Z85.528 Personal history of other malignant neoplasm of kidney; K59.00 Constipation, unspecified; R11.0 Nausea; M54.9 Dorsalgia, unspecified
CPT/HCPCS: 36415; 82232; 83615; 83883; 84550; 85025; 86334; G0463; 82040; 82247; 82310; 82374; 82435; 82565; 82947; 84075; 84132; 84155; 84295; 84450; 84460; 84520; 99212

== ENCOUNTER 2018-04-20 16:27 | Emergency (ER) | payer MEDICAID ==
[2017-10-24 08:37] VITALS: Wt 84.4 kg
--- NOTE | 2018-04-20 16:29 | ER Report ---
History and Physical Time Seen By MD: 16:28 (RENA WERNER DO) HPI/ROS CHIEF COMPLAINT: Mid epigastric abdominal pain HISTORY OF PRESENT ILLNESS: Patient is a 48-year-old female with a complicated history significant for gastric bypass surgery hernia surgery, prior bowel obstructions, hysterectomy, tubal ligation. Patient is here today with abdominal pain and nausea which started this morning and acutely worsened after eating lunch which consisted of bread with seeds. Patient reports significant midepigastric abdominal pain, nausea. Last bowel movement was yesterday and was small and soft. Patient is hemodynamically stable, afebrile at time of evaluation. 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 REVIEW OF SYSTEMS: Constitutional: No fever, no chills. Eyes: No discharge. ENT: No sore throat. Cardiovascular: No chest pain, no palpitations. Respiratory: No cough, no shortness of breath. Gastrointestinal: + significant mid epigastric abdominal pain, + nausea and vomiting. Genitourinary: No hematuria or burning with urination Musculoskeletal: No back pain. Skin: No rashes. Neurological: No headache. (RENA WERNER DO) Allergies: Coded Allergies: bupropion (Verified Allergy, Severe, RASH, HIVES, SWELLING, 02/17/18) Home Meds Active Scripts Oxycodone Hcl/Acetaminophen (PERCOCET 5-325 MG TABLET) 1 Each Tablet, 1 EACH PO Q4H PRN for PAIN, #12 TAB 0 Refills Prov:MITCH DUNBAR MD 04/20/18 Ondansetron 4 Mg Odt (ONDANSETRON 4 MG ODT) 4 Mg Tab.rapdis, 4 MG PO Q6H PRN for NAUSEA/VOMITING, #20 TAB 0 Refills Prov:MITCH DUNBAR MD 04/20/18 Albuterol Sulfate (VENTOLIN HFA) 18 Gm Inh, 2 PUFF INH QID PRN for WHEEZING, #1 INH 0 Refills Prov:LOBITO JENKINS APRN PROSTHETIC AIDE-C 04/11/18 Buspirone Hcl (BUSPIRONE HCL) 10 Mg Tablet, 10 MG PO BID, #30 TAB Prov:OWEN FORD MD 02/04/18 Reported Medications Omeprazole (OMEPRAZOLE) 20 Mg Capsule.dr, 1 CAP PO QDAY, CAP 04/20/18 Lisdexamfetamine Dimesylate (VYVANSE) 20 Mg Capsule, 20 MG PO QDAY, CAPSULE 04/20/18 [Trintexllix] No Conflict Check, 5 MG PO DAILY 04/20/18 [L Methly Folate] No Conflict Check, 15 MG QID 04/20/18 Alprazolam (XANAX) 0.5 Mg Tablet, 1 TAB PO HS, TAB 03/27/18 Psyllium Husk/Aspartame (Metamucil Sugar-Free Powder) 3.4 Gram/5.8 Gram Powder, 2 TSP PO BID 02/04/18 Cranberry Extract (CRANBERRY) Unknown Strength Capsule, PO, CAPSULE 02/04/18 Estradiol (ESTRACE) 0.5 Mg Tablet, 0.5 MG PO DAILY 02/04/18 Multivitamin W/Iron, Minerals (FLINTSTONES COMPLETE) 1 Each Tab.chew, 2 EACH PO DAILY, TAB.CHEW 10/11/16 Iron Polysaccharides Complex (POLYSACCHARIDE IRON 150) 150 Mg Capsule, 27 MG PO QDAY, CAPSULE 10/11/16 Cyanocobalamin (Vitamin B-12) (Vitamin B12) Unknown Strength Tablet, 1000 MCG PO QWEEK 03/16/15 Ascorbic Acid (VITAMIN C) 500 Mg Tab.chew, 500 MG PO BID, TAB.CHEW 03/16/15 Cholecalciferol (Vitamin D3) (VITAMIN D-3) 2,000 Unit Capsule, 2000 UNIT PO QDAY, CAPSULE 03/12/15 [place]-3 Fatty Acids/Fish Oil (OMEGA 3 FISH OIL SOFTGEL) 1 Each Capsule., 1 EA CH PO BID 03/12/15 Calcium (Calcium) 500 Mg Tablet, 1000 MG PO DAILY, 0 Refills 02/06/11 Discontinued Scripts Omeprazole (OMEPRAZOLE) 40 Mg Capsule.dr, 40 MG PO QDAY, #30 TAB 3 Refills Prov:OWEN FORD MD 04/02/18 Sulfamethoxazole/Trimet 800-160 Mg Tab (BACTRIM DS TABLET) 1 Each Tablet, 1 TAB PO BID, #14 TAB 0 Refills Prov:OWEN FORD MD 03/05/18 Atorvastatin Calcium (ATORVASTATIN CALCIUM) 20 Mg Tablet, 1 TAB PO QDAY, #30 TAB 0 Refills Prov:OWEN FORD MD 02/26/18 Amphet Asp/Amphet/D-Amphet (ADDERALL 20 MG TABLET) 20 Mg Tablet, 20 MG PO BID, #60 TAB Prov:OWEN FORD MD 02/04/18 Hx Smoking: Yes (1-10 per day for 6 years ) Smoking Status: Current: Every Day Smoker, Light Tobacco Smoker Exposure to Second Hand Smoke?: Yes (family friends smoked) Hx Substance Use Disorder: No (marijuana last use several weeks ago) Hx Alcohol Use: No (RENA WERNER DO) Constitutional Vital Sign - Last 24 Hours 04/20/18 04/20/18 04/20/18 04/20/18 16:34 16:35 17:00 17:30 Temp 99.0 Pulse 77 71 72 Resp 16 B/P (MAP) 123/89 (100) 123/89 132/80 (97) Pulse Ox 97 94 95 O2 Delivery Room Air 04/20/18 04/20/18 04/20/18 19:00 19:17 19:30 Pulse 68 70 B/P (MAP) 113/58 (76) 107/77 (87) Pulse Ox 94 95 Intake and Output 04/20/18 04/20/18 04/21/18 15:00 23:00 07:00 Intake Total 1000 ml Balance 1000 ml (MITCH DUNBAR MD) Physical Exam General Appearance: The patient is alert, has no immediate need for airway protection and no signs of toxicity. Moderate distress, + tearful Eyes: Pupils equal and round no pallor or injection. ENT, Mouth: Mucous membranes are moist. Respiratory: There are no retractions, lungs are clear to auscultation. Cardiovascular: Regular rate and rhythm. Gastrointestinal: Abdomen is soft and + tender in the mid epigastric region, no rebound or guarding, no masses, bowel sounds normal. Neurological: No focal neuro findings Skin: Warm and dry, no rashes. Musculoskeletal: Neck is supple non tender. Extremities are nontender, nonswollen and have full range of motion. DIFFERENTIAL DIAGNOSIS: After history and physical exam differential diagnosis was considered for abdominal pain including but not limited to appendicitis, cholecystitis, gastritis and urinary tract infection. (RENA WERNER DO) Medical Decision Making Data Points Result Diagram: 04/20/18 1705 04/20/18 1705 Laboratory Hematology Test 04/20/18 16:30 04/20/18 17:05 Urine Color Yellow Urine Clarity Clear Urine pH 5.0 pH (4.8-9.5) Urine Specific [place] 1.011 Urine Protein Negative mg/dL (NEGATIVE) Urine Glucose (UA) Negative mg/dL (NEGATIVE) Urine Ketones Negative mg/dL (NEGATIVE) Urine Blood Negative (NEGATIVE) Urine Nitrite Negative (NEGATIVE) Urine Bilirubin Negative (NEGATIVE) Urine Urobilinogen Negative mg/dL (0.2-1.9) Urine Leukocyte Esterase Negative (NEGATIVE) Urine RBC None /HPF (0-2/HPF) Urine WBC <1 /HPF (0-5/HPF) Urine Squamous Epithelial Cells Few /LPF (</=FEW) Urine Bacteria Negative /HPF (NONE-FEW) Urine Mucus None /HPF (NONE-FEW) Red Blood Count 4.35 M/uL (4.17-5.56) Mean Corpuscular Volume 91.4 fL (80.0-96.0) Mean Corpuscular Hemoglobin 31.1 pg (26.0-33.0) Mean Corpuscular Hemoglobin Concent 34.0 g/dL (32.0-36.0) Red Cell Distribution Width 12.7 % (11.5-14.5) Mean Platelet Volume 7.7 fL (7.2-11.1) Neutrophils (%) (Auto) 48.3 % (39.4-72.5) Lymphocytes (%) (Auto) 41.9 % (17.6-49.6) Monocytes (%) (Auto) 6.0 % (4.1-12.4) Eosinophils (%) (Auto) 3.0 % (0.4-6.7) Basophils (%) (Auto) 0.8 % (0.3-1.4) Nucleated RBC Relative Count (auto) 0.1 /100WBC Neutrophils # (Auto) 2.7 K/uL (2.0-7.4) Lymphocytes # (Auto) 2.4 K/uL (1.3-3.6) Monocytes # (Auto) 0.3 K/uL (0.3-1.0) Eosinophils # (Auto) 0.2 K/uL (0.0-0.5) Basophils # (Auto) 0.0 K/uL (0.0-0.1) Nucleated RBC Absolute Count (auto) 0.00 K/uL Sodium Level 139 mmol/L (137-145) Potassium Level 4.3 mmol/L (3.5-5.0) Chloride Level 113 mmol/L (98-107) Carbon Dioxide Level 19 mmol/L (22-31) Blood Urea Nitrogen 20 mg/dl (7-18) Creatinine 1.10 mg/dl (0.52-1.04) Glomerular Filtration Rate Calc 53.2 Random Glucose 83 mg/dl (75-110) Lactate 0.8 mmol/L (0.7-2.1) Calcium Level 8.7 mg/dl (8.4-10.2) Total Bilirubin 0.2 mg/dl (0.2-1.3) Aspartate Amino Transf (AST/SGOT) 27 U/L (0-35) Alanine Aminotransferase (ALT/SGPT) 33 U/L (0-56) Alkaline Phosphatase 89 U/L (0-126) Total Protein 6.4 g/dl (6.3-8.2) Albumin 3.5 g/dl (3.5-5.0) Lipase 172 U/L (23-300) Chemistry Test 04/20/18 16:30 04/20/18 17:05 Urine Color Yellow Urine Clarity Clear Urine pH 5.0 pH (4.8-9.5) Urine Specific [place] 1.011 Urine Protein Negative mg/dL (NEGATIVE) Urine Glucose (UA) Negative mg/dL (NEGATIVE) Urine Ketones Negative mg/dL (NEGATIVE) Urine Blood Negative (NEGATIVE) Urine Nitrite Negative (NEGATIVE) Urine Bilirubin Negative (NEGATIVE) Urine Urobilinogen Negative mg/dL (0.2-1.9) Urine Leukocyte Esterase Negative (NEGATIVE) Urine RBC None /HPF (0-2/HPF) Urine WBC <1 /HPF (0-5/HPF) Urine Squamous Epithelial Cells Few /LPF (</=FEW) Urine Bacteria Negative /HPF (NONE-FEW) Urine Mucus None /HPF (NONE-FEW) White Blood Count 5.7 k/uL (4.5-11.0) Red Blood Count 4.35 M/uL (4.17-5.56) Hemoglobin 13.5 g/dL (12.0-16.0) Hematocrit 39.7 % (34.0-47.0) Mean Corpuscular Volume 91.4 fL (80.0-96.0) Mean Corpuscular Hemoglobin 31.1 pg (26.0-33.0) Mean Corpuscular Hemoglobin Concent 34.0 g/dL (32.0-36.0) Red Cell Distribution Width 12.7 % (11.5-14.5) Platelet Count 231 K/uL (150-450) Mean Platelet Volume 7.7 fL (7.2-11.1) Neutrophils (%) (Auto) 48.3 % (39.4-72.5) Lymphocytes (%) (Auto) 41.9 % (17.6-49.6) Monocytes (%) (Auto) 6.0 % (4.1-12.4) Eosinophils (%) (Auto) 3.0 % (0.4-6.7) Basophils (%) (Auto) 0.8 % (0.3-1.4) Nucleated RBC Relative Count (auto) 0.1 /100WBC Neutrophils # (Auto) 2.7 K/uL (2.0-7.4) Lymphocytes # (Auto) 2.4 K/uL (1.3-3.6) Monocytes # (Auto) 0.3 K/uL (0.3-1.0) Eosinophils # (Auto) 0.2 K/uL (0.0-0.5) Basophils # (Auto) 0.0 K/uL (0.0-0.1) Nucleated RBC Absolute Count (auto) 0.00 K/uL Glomerular Filtration Rate Calc 53.2 Lactate 0.8 mmol/L (0.7-2.1) Calcium Level 8.7 mg/dl (8.4-10.2) Total Bilirubin 0.2 mg/dl (0.2-1.3) Aspartate Amino Transf (AST/SGOT) 27 U/L (0-35) Alanine Aminotransferase (ALT/SGPT) 33 U/L (0-56) Alkaline Phosphatase 89 U/L (0-126) Total Protein 6.4 g/dl (6.3-8.2) Albumin 3.5 g/dl (3.5-5.0) Lipase 172 U/L (23-300) Urinalysis Test 04/20/18 16:30 Urine Color Yellow Urine Clarity Clear Urine pH 5.0 pH (4.8-9.5) Urine Specific [place] 1.011 Urine Protein Negative mg/dL (NEGATIVE) Urine Glucose (UA) Negative mg/dL (NEGATIVE) Urine Ketones Negative mg/dL (NEGATIVE) Urine Blood Negative (NEGATIVE) Urine Nitrite Negative (NEGATIVE) Urine Bilirubin Negative (NEGATIVE) Urine Urobilinogen Negative mg/dL (0.2-1.9) Urine Leukocyte Esterase Negative (NEGATIVE) Urine RBC None /HPF (0-2/HPF) Urine WBC <1 /HPF (0-5/HPF) Urine Squamous Epithelial Cells Few /LPF (</=FEW) Urine Bacteria Negative /HPF (NONE-FEW) Urine Mucus None /HPF (NONE-FEW) (MITCH DUNBAR MD) EKG/Imaging Imaging EXAMINATION: CT abdomen and pelvis with contrast COMPARISON: 12/01/2017 and earlier. HISTORY: Mid epigastric abdominal pain with nausea and vomiting. PROCEDURE: Multiplanar contrast enhanced CT of the abdomen and pelvis with 85 mL intravenous Isovue 370. One of the following dose optimization techniques was utilized in the performance of this exam: Automated exposure control; adjustment of the mA and/or kV according to the patient's size; or use of an iterative reconstruction technique. Specific details can be referenced in the facility's radiology CT exam operational policy. FINDINGS: Visualized thorax: Negative. Liver: Negative. Gallbladder and biliary system: Cholecystectomy. No evidence of acute bile duct dilation. Spleen: Negative. Pancreas: Negative. Adrenal glands: Negative. Kidneys and bladder: Right nephrectomy. Right renal fossa is unremarkable. Left kidney upper pole mild cortical thinning suggestive of prior infarct. No left renal mass, parenchymal inflammation, or hydronephrosis. Urinary bladder is unremarkable. Vessels: Aortoiliac minor atherosclerosis. No abdominal aortic aneurysm. Portal venous system and IVC are unremarkable. Bowel and mesentery: Mirna-en-Y gastric bypass. No gastric distention. No small bowel obstruction. Appendix is unremarkable. Small to moderate amount of stool predominantly in the ascending and transverse colons. No bowel or mesenteric inflammation. Pelvic organs: Hysterectomy. No adnexal mass. Lymph nodes: No adenopathy. Free air/free fluid: None. Abdominal wall and osseous structures: Lumbar spine mild degenerative change. Disc bulges at L3-L4 and L4-L5 likely result in mild canal and lateral recess narrowing. No acute findings. IMPRESSION: 1. No findings of acute disease in the abdomen or pelvis. 2. Chronic/incidental findings as described above. Report Dictated By: Jerome Elizalde MD at 04/20/2018 6:30 PM (MITCH DUNBAR MD) ED Course/Re-evaluation ED Course Patient is a 48-year-old female here with complaints of midepigastric abdominal pain with multiple prior abdominal surgeries including gastric bypass, hernia, multiple bowel obstructions, hysterectomy, tubal ligation. Patient reports that her current symptoms seem similar to prior bowel obstructions. She last ate at lunch and subsequently had episodes of nausea and vomiting, worsening abdominal pain. Abdominal pain initially started this morning but acutely worsened after lunch. Patient is afebrile, hemodynamically stable but complaining of moderate to severe pain. Abdomen is nondistended, there is no rebound or guarding at time of evaluation. Last bowel movement was yesterday and was small and soft per patient report. 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 Patient labs were remarkable for mild AK I, still within the acceptable range for CT imaging. Patient was taken to CT imaging, patient care was transferred to Dr. Dunbar pending results. (RENA WERNER DO) ED Course I assumed care of this 48 year old female from Dr. Werner at shift change. Abdominal pain workup as noted with Dr. Werner. CT scan of the abdomen was done. This was negative for acute problems. Discussed this with the patient. Appears likely gastroenteritis at this point. Gave Dilaudid 0.5mg IV to help with pain. Home with Percocet and Zofran. Decision to Disposition Date: Apr 20, 2018 Decision to Disposition Time: 19:55 (MITCH DUNBAR MD) Depart Departure Latest Vital Signs Vital Signs Date Time Temp Pulse Resp B/P (MAP) Pulse Ox O2 Delivery O2 Flow Rate FiO2 04/20/18 19:30 70 107/77 (87) 95 04/20/18 16:35 99.0 16 Room Air (MITCH DUNBAR MD) Impression: Primary Impression: Gastroenteritis Condition: Improved Disposition: HOME OR SELF-CARE Referrals: OWEN FORD MD (PCP) New Scripts Oxycodone Hcl/Acetaminophen (PERCOCET 5-325 MG TABLET) 1 Each Tablet 1 EACH PO Q4H PRN for PAIN, #12 TAB 0 Refills Prov: MITCH DUNBAR MD 04/20/18 Ondansetron 4 Mg Odt (ONDANSETRON 4 MG ODT) 4 Mg Tab.rapdis 4 MG PO Q6H PRN for NAUSEA/VOMITING, #20 TAB 0 Refills Prov: MITCH DUNBAR MD 04/20/18 Patient Instructions: B.R.A.T.Diet, Gastroenteritis (ED) Additional Instructions: Increase fluid intake. Start with a bland diet (or BRAT diet). Take Percocet 5/325, one every 4 hours as needed for pain. Take Zofran 4mg, one every 6 hours as needed for nausea and vomiting. RENA WERNER DO Apr 20, 2018 16:29 MITCH DUNBAR MD Apr 20, 2018 18:14
[2018-04-20] MEDS ORDERED: NS(*) 0.9% 1000 ML BAG 1,000 ML IV ONE (16:41)
[2018-04-20] MEDS ORDERED: fentaNYL CITR 100 MCG/2 ML AMP IVP ONE (16:45)
[2018-04-20] MEDS ORDERED: ONDANSETRON 4 MG/2 ML VIAL IVP ONE (16:45)
[2018-04-20] MEDS ORDERED: [UNRECOGNIZED DRUG - OTHER] (16:52)
[2018-04-20] MEDS ORDERED: [UNRECOGNIZED DRUG - OTHER] PO (16:52)
[2018-04-20] MEDS ORDERED: LISD20CA4 PO (16:52)
[2018-04-20] MEDS ORDERED: OMEP-125 PO (16:59)
[2018-04-20] MEDS ORDERED: IOPAMIDOL 76% 100 ML INFUS BTL 100 ML ONE (17:03)
[2018-04-20 17:17] LABS: PLATELET COUNT, AUTOMATED 231 K/uL (150-450)
--- NOTE | 2018-04-20 18:40 | RADIOLOGY IMAGING REPORT ---
FACILITY: [facility] - [place] PATIENT NAME: Lisseth Adame : 1970 MR: [id number] V: [id number] EXAM DATE: ORDERING PHYSICIAN: RENA HARPER TECHNOLOGIST: Location: [facility] Patient: Lisseth Adame : 1970 Visit/Account:[id number] Date of Sevice: 04/20/2018 EXAMINATION: CT abdomen and pelvis with contrast COMPARISON: 12/01/2017 and earlier. HISTORY: Mid epigastric abdominal pain with nausea and vomiting. PROCEDURE: Multiplanar contrast enhanced CT of the abdomen and pelvis with 85 mL intravenous Isovue 3 70. One of the following dose optimization techniques was utilized in the performance of this exam: A utomated exposure control; adjustment of the mA and/or kV according to the patient's size; or use of an iterative reconstruction technique. Specific details can be referenced in the facility's radiolo gy CT exam operational policy. FINDINGS: Visualized thorax: Negative. Liver: Negative. Gallbladder and biliary system: Cholecystectomy. No evidence of acute bile duct dilation. Spleen: Negative. Pancreas: Negative. Adrenal glands: Negative. Kidneys and bladder: Right nephrectomy. Right renal fossa is unremarkable. Left kidney upper pole mil d cortical thinning suggestive of prior infarct. No left renal mass, parenchymal inflammation, or hyd ronephrosis. Urinary bladder is unremarkable. Vessels: Aortoiliac minor atherosclerosis. No abdominal aortic aneurysm. Portal venous system and IVC are unremarkable. Bowel and mesentery: Mirna-en-Y gastric bypass. No gastric distention. No small bowel obstruction. Anurag endix is unremarkable. Small to moderate amount of stool predominantly in the ascending and transvers e colons. No bowel or mesenteric inflammation. Pelvic organs: Hysterectomy. No adnexal mass. Lymph nodes: No adenopathy. Free air/free fluid: None. Abdominal wall and osseous structures: Lumbar spine mild degenerative change. Disc bulges at L3-L4 an d L4-L5 likely result in mild canal and lateral recess narrowing. No acute findings. IMPRESSION: 1. No findings of acute disease in the abdomen or pelvis. 2. Chronic/incidental findings as described above. Report Dictated By: Jerome Elizalde MD at 04/20/2018 6:30 PM Report E-Signed By: Jerome Elizalde MD at 04/20/2018 6:36 PM WSN:[id number]
[2018-04-20 19:30] VITALS: BP 107/77
[2018-04-20] MEDS ORDERED: HYDROMORPHONE HCL 1 MG/ML SYRINGE IVP ONE (19:45)
[2018-04-20] MEDS ORDERED: ONDA4TAB9 PO (19:57)
[2018-04-20] MEDS ORDERED: OXYC-865 PO (19:57)
[2018-04-20] MEDS ORDERED: ONDANSETRON 4 MG ODT TH SL ONE (20:00)
[2018-04-20] MEDS ORDERED: oxyCODONE/ACETAMIN 5/325MG TH 2 TAB/BOTTLE PO ONE (20:00)
== END 2018-04-20 20:15 | disposition home or self-care (01) ==
LOC: ER 17:04
DX: K52.9 Noninfective gastroenteritis and colitis, unspecified (principal)
CPT/HCPCS: 36415; 74177; 81001; 83605; 83690; 85025; 96361; 96374; 96375; 99284; J1170; J2405; J3010; J7030; Q9967; S0119; 82040; 82247; 82310; 82374; 82435; 82565; 82947; 84075; 84132; 84155; 84295; 84450; 84460; 84520

== ENCOUNTER 2018-05-04 10:14 | Emergency (ER) | payer MEDICAID ==
[2017-10-24 08:37] VITALS: Wt 75.3 kg
[~2018-05-04 10:14] MED LIST changes: +LISD20CA4 PO; +OMEP-125 PO; +ONDA4TAB9 PO; +[UNRECOGNIZED DRUG - OTHER]; +[UNRECOGNIZED DRUG - OTHER] PO
[2018-05-04] MEDS ORDERED: AMPH12.53 PO (10:32)
--- NOTE | 2018-05-04 10:48 | ER Report ---
History and Physical Time Seen By MD: 10:00 Hx. of Stated Complaint: depressed and anxious HPI/ROS Long standing history of depression and anxiety. Has a psychiatric provider in town. Is currently on multiple medications for her depression and anxiety. States that she has had increased stress recently due to an estranged relationship. She denies any domestic violence. She presents to the emergency department stating that she is "unable to get rid of the pain feeling in her stomach." She ran out of Xanax last week. She did not call her primary provider. She states that she has refills for her other medications currently at [facility], but needs a provider to refill her Xanax. She denies SI or HI. Her daughter is at the bedside. She says the "pit" in her stomach calms and goes and is associated with a feeling of tearfulness and anxiety. She is having normal bowel movements and passing gas. She denies vomiting or diarrhea. She states th at she has been tearful over her relationship. Her plan is to call her primary provider tomorrow, but when her mood worsened on Saturday she was unable to reach her provider. Remainder of the 14 system rev: Yes Allergies: Coded Allergies: bupropion (Verified Allergy, Severe, RASH, HIVES, SWELLING, 05/04/18) Home Meds Active Scripts Albuterol Sulfate (VENTOLIN HFA) 18 Gm Inh, 2 PUFF INH QID PRN for WHEEZING, #3 INH 3 Refills Prov:OWEN FORD MD 05/02/18 Buspirone Hcl (BUSPIRONE HCL) 10 Mg Tablet, 10 MG PO BID, #30 TAB Prov:OWEN FORD MD 02/04/18 Reported Medications Amphet Asp/Amphet/D-Amphet (ADDERALL 12.5 MG TABLET) 12.5 Mg Tablet, 12.5 MG PO BID 05/04/18 Omeprazole (OMEPRAZOLE) 20 Mg Capsule.dr, 1 CAP PO QDAY, CAP 04/20/18 [Trintexllix] No Conflict Check, 5 MG PO DAILY 04/20/18 [L Methly Folate] No Conflict Check, 15 MG QID 04/20/18 Alprazolam (XANAX) 0.5 Mg Tablet, 1 TAB PO HS, TAB 03/27/18 Psyllium Husk/Aspartame (Metamucil Sugar-Free Powder) 3.4 Gram/5.8 Gram Powder, 2 TSP PO BID 02/04/18 Cranberry Extract (CRANBERRY) Unknown Strength Capsule, PO, CAPSULE 02/04/18 Estradiol (ESTRACE) 0.5 Mg Tablet, 0.5 MG PO DAILY 02/04/18 Multivitamin W/Iron, Minerals (FLINTSTONES COMPLETE) 1 Each Tab.chew, 2 EACH PO DAILY, TAB.CHEW 10/11/16 Iron Polysaccharides Complex (POLYSACCHARIDE IRON 150) 150 Mg Capsule, 27 MG PO QDAY, CAPSULE 10/11/16 Cyanocobalamin (Vitamin B-12) (Vitamin B12) Unknown Strength Tablet, 1000 MCG PO QWEEK 03/16/15 Ascorbic Acid (VITAMIN C) 500 Mg Tab.chew, 500 MG PO BID, TAB.CHEW 03/16/15 Cholecalciferol (Vitamin D3) (VITAMIN D-3) 2,000 Unit Capsule, 2000 UNIT PO QDAY, CAPSULE 03/12/15 [place]-3 Fatty Acids/Fish Oil (OMEGA 3 FISH OIL SOFTGEL) 1 Each Capsule.dr, 1 EACH PO BID 03/12/15 Calcium (Calcium) 500 Mg Tablet, 1000 MG PO DAILY, 0 Refills 02/06/11 Discontinued Reported Medications Lisdexamfetamine Dimesylate (VYVANSE) 20 Mg Capsule, 20 MG PO QDAY, CAPSULE 04/20/18 Discontinued Scripts Oxycodone Hcl/Acetaminophen (PERCOCET 5-325 MG TABLET) 1 Each Tablet, 1 EACH PO Q4H PRN for PAIN, #12 TAB 0 Refills Prov:MITCH VELASCO MD 04/20/18 Ondansetron 4 Mg Odt (ONDANSETRON 4 MG ODT) 4 Mg Tab.rapdis, 4 MG PO Q6H PRN for NAUSEA/VOMITING, #20 TAB 0 Refills Prov:MITCH VELASCO MD 04/20/18 Reviewed Nurses Notes: Yes Old Medical Records Reviewed: Yes Hx Smoking: Yes (1-10 per day for 6 years ) Smoking Status: Current: Every Day Smoker, Light Tobacco Smoker Exposure to Second Hand Smoke?: Yes (family friends smoked) Hx Substance Use Disorder: No (marijuana last use several weeks ago) Hx Alcohol Use: No Constitutional Vital Sign - Last 24 Hours 05/04/18 10:24 Temp 98.4 Pulse 77 Resp 12 B/P (MAP) 121/71 Pulse Ox 94 O2 Delivery Room Air Physical Exam General Appearance: The patient is alert, has no immediate need for airway protection and no current signs of toxicity. Eyes: Pupils equal and round no injection. Respiratory: Chest is non tender, lungs are clear to auscultation. Cardiac: regular rate and rhythm Gastrointestinal: Abdomen is soft and non tender, no masses, bowel sounds normal. Psych: No SI/HI, no psychosis, no jesus. No rashes or lesions. DIFFERENTIAL DIAGNOSIS: After history and physical exam differential diagnosis was considered for depression including functional and major depression, situational depression, medication side effect, drugs and alcohol abuse. Medical Decision Making ED Course/Re-evaluation ED Course Uncomplicated anxiety and depression. Benign abdominal exam. Passing gas. Not c/w SBO. No SI/HI. I told the patient that I would not refill her benzodiazepines. She does not have any evidence of acute withdrawal. I gave her 1 dose of Valium in the emergency department, and told her to follow with her primary physician tomorrow. Decision to Disposition Date: May 04, 2018 Decision to Disposition Time: 11:33 Depart Departure Latest Vital Signs Vital Signs Date Time Temp Pulse Resp B/P (MAP) Pulse Ox O2 Delivery O2 Flow Rate FiO2 05/04/18 10:24 98.4 77 12 121/71 94 Room Air Impression: Primary Impression: Adjustment disorder Condition: Improved Disposition: HOME OR SELF-CARE Referrals: OWEN FORD MD (PCP) Patient Instructions: Anxiety (ED) Problem Qualifiers Primary Impression: Adjustment disorder Adjustment disorder type: with mixed anxiety and depressed mood Qualified Codes: F43.23 - Adjustment disorder with mixed anxiety and depressed mood JUDITH GARCIA MD May 04, 2018 10:48
[2018-05-04 11:00] VITALS: BP 105/66
[2018-05-04] MEDS ORDERED: DIAZEPAM 5 MG TAB PO ONE (11:15)
[2018-05-05] MEDS ORDERED: HYDR-4225 PO (14:08)
[2018-05-05] MEDS ORDERED: PRAV40TA78 PO (14:09)
== END 2018-05-04 11:41 | disposition home or self-care (01) ==
LOC: ER 10:53
DX: F43.23 Adjustment disorder with mixed anxiety and depressed mood (principal)
CPT/HCPCS: 99283

== ENCOUNTER → 2018-05-05 | Outpatient (CLI) | payer MEDICAID ==
[2017-10-24 08:37] VITALS: BMI 31.7
[~2018-05-05] MED LIST changes: +AMPH12.53 PO; +HYDR-4225 PO; +PRAV40TA78 PO
== END ==
LOC: LAB 14:09
PROVIDERS: ATTEND Emergency Medicine
DX: R10.9 Unspecified abdominal pain (principal)
CPT/HCPCS: 81001

== ENCOUNTER → 2018-06-05 | Outpatient (CLI) | payer MEDICAID ==
[2017-10-24 08:37] VITALS: BMI 31.7
== END ==
LOC: LAB 14:28
PROVIDERS: ATTEND Emergency Medicine
DX: I70.90 Unspecified atherosclerosis (principal)
CPT/HCPCS: 36415; 82465; 83718; 84478

== ENCOUNTER 2018-07-30 17:45 | Emergency (ER) | payer MEDICAID ==
[2017-10-24 08:37] VITALS: Wt 83.9 kg
[~2018-07-30 17:45] MED LIST changes: -ROS10 PO; +ROSU10TA PO
[2018-07-30] MEDS ORDERED: ONDANSETRON 4 MG/2 ML VIAL IVP ONE (17:55)
[2018-07-30] MEDS ORDERED: NS(*) 0.9% 1000 ML BAG 1,000 ML IV ONE (17:59)
[2018-07-30] MEDS ORDERED: PROMETHAZINE 25 MG/ML 1 ML AMP IVP ONE (18:00)
--- NOTE | 2018-07-30 18:32 | ER Report ---
History and Physical Time Seen By MD: 17:55 Hx. of Stated Complaint: PATIENT REPORTS NAUSEA FOR 3 WEEKS. SHE HAS BEEN VOMITNG HEAVILY FOR THE LAST 3-4 HOURS HPI/ROS CHIEF COMPLAINT: Vomiting HISTORY OF PRESENT ILLNESS: 48-year-old female presents with dry heaves and vomiting over the last 3 hours. She's been unable to keep anything down. Patient reports a total history of 3 weeks of nausea and upset stomach. She was seen at urgent care, approximate 3 weeks ago and started on amoxicillin for sinus infection. She does admit to sinus congestion purulent drainage. She has a very nasally speech during the interview. Patient states she returned urgent care 1 week ago and had her amoxicillin changed to Augmentin. She is not treating herself with any symptom relieving medications nasal washes decongestants or steroid sprays. Patient states that she began vomiting this afternoon, has been unable to keep anything down. She denies any abdominal pain or diarrhea. She notes no fever or chills. REVIEW OF SYSTEMS: Respiratory: No cough, no dyspnea. Cardiovascular: No chest pain, no palpitations. Gastrointestinal: As above Musculoskeletal: No back pain. Allergies: Coded Allergies: bupropion (Verified Allergy, Severe, RASH, HIVES, SWELLING, 05/04/18) atorvastatin (Verified Adverse Reaction, Intermediate, Leg pain, 05/05/18) Home Meds Active Scripts Ondansetron Hcl (ZOFRAN) 4 Mg Tablet, 4 MG PO Q6H PRN for NAUSEA/VOMITING, #10 Prov:ARABELLAMICHELLE M DO 07/30/18 Promethazine Hcl (PROMETHAZINE HCL) 25 Mg Tablet, 25 MG PO Q4H PRN for NAUSEA/VOMITING, #14 TAB Prov:ARABELLAMICHELLE Sinclair DO 07/30/18 Pravastatin Sodium (PRAVASTATIN SODIUM) 40 Mg Tablet, 40 MG PO QDAY, #90 TAB 3 Refills Prov:OWEN FORD MD 06/05/18 Hydroxyzine Hcl (HYDROXYZINE HCL) 25 Mg Tablet, 25 MG PO TID for Anxiety, #40 TAB Prov:OWEN FORD MD 06/05/18 Albuterol Sulfate (VENTOLIN HFA) 18 Gm Inh, 2 PUFF INH QID PRN for WHEEZING, #3 INH 3 Refills Prov:OWEN FORD MD 05/02/18 Buspirone Hcl (BUSPIRONE HCL) 10 Mg Tablet, 10 MG PO BID, #30 TAB Prov:OWEN FORD MD 02/04/18 Reported Medications Amphet Asp/Amphet/D-Amphet (ADDERALL 12.5 MG TABLET) 12.5 Mg Tablet, 12.5 MG PO BID 05/04/18 Omeprazole (OMEPRAZOLE) 20 Mg Capsule., 1 CAP PO QDAY, CAP 04/20/18 [Trintexllix] No Conflict Check, 5 MG PO DAILY 04/20/18 [L Methly Folate] No Conflict Check, 15 MG QID 04/20/18 Psyllium Husk/Aspartame (Metamucil Sugar-Free Powder) 3.4 Gram/5.8 Gram Powder, 2 TSP PO BID 02/04/18 Cranberry Extract (CRANBERRY) Unknown Strength Capsule, PO, CAPSULE 02/04/18 Estradiol (ESTRACE) 0.5 Mg Tablet, 0.5 MG PO DAILY 02/04/18 Multivitamin W/Iron, Minerals (FLINTSTONES COMPLETE) 1 Each Tab.chew, 2 EACH PO DAILY, TAB.CHEW 10/11/16 Iron Polysaccharides Complex (POLYSACCHARIDE IRON 150) 150 Mg Capsule, 27 MG PO QDAY, CAPSULE 10/11/16 Cyanocobalamin (Vitamin B-12) (Vitamin B12) Unknown Strength Tablet, 1000 MCG PO QWEEK 03/16/15 Ascorbic Acid (VITAMIN C) 500 Mg Tab.chew, 500 MG PO BID, TAB.CHEW 03/16/15 Cholecalciferol (Vitamin D3) (VITAMIN D-3) 2,000 Unit Capsule, 2000 UNIT PO QDAY, CAPSULE 03/12/15 [place]-3 Fatty Acids/Fish Oil (OMEGA 3 FISH OIL SOFTGEL) 1 Each Capsule., 1 EACH PO BID 03/12/15 Calcium (Calcium) 500 Mg Tablet, 1000 MG PO DAILY, 0 Refills 02/06/11 Past Medical/Surgical History Past Medical History Cardiovascular: Reports hx of: DVT (w/chemo) Respiratory: Reports hx of: pulmonary embolism (with chemo) sleep apnea (Resolved after bypass) Gastrointestinal: Reports hx of: peptic ulcer disease (12/16 wwith positive H Pylori) other GI history (SBO, gastric and colon polypectomy( hyperplastic) ) Genitourinary: Reports hx of: other history (R. nephrectomy) Psychiatric: Reports hx of: anxiety depression PTSD suicide attempt(s) (x3, 27 yrs ago) Hematology/oncology: Reprots hx of: renal cancer (Transitional Cell Carcinoma in 2009 treated with nephrectomy.2012 resection of liver ) Past Surgical History HEENT: Reports hx of: dental surgery ([place] teeth) tonsillectomy (1973) Gastrointestinal: Reports hx of: gastric bypass (2004) hernia repair (2009) other GI surgery (surgical reduction of incarcerated small bowel hernia in 2008, c-scope 2014) Gynecologic: Reports hx of: delivery (1989, 1991 and 1997) hysterectomy (1999 BEN, ovaries remained) other surgery (Right nephrourerterectomy in 2006) Musculoskeletal: Reports hx of: carpal tunnel release (1992 and 1993, iulnar translocation in 1993) other musculosk surgery (Left foot bone spur removal in 1989) Reviewed Nurses Notes: Yes Old Medical Records Reviewed: Yes Hx Smoking: Yes (1-10 per day for 6 years ) Smoking Status: Current: Every Day Smoker, Light Tobacco Smoker Exposure to Second Hand Smoke?: Yes (family friends smoked) Hx Substance Use Disorder: No (marijuana last use several weeks ago) Hx Alcohol Use: No Constitutional Vital Sign - Last 24 Hours 07/30/18 07/30/18 17:49 19:34 Temp 98.6 Pulse 69 63 Resp 24 B/P (MAP) 166/91 120/106 (111) Pulse Ox 98 96 Intake and Output 07/30/18 07/30/18 07/31/18 15:00 23:00 07:00 Intake Total 1000 ml Balance 1000 ml Physical Exam Vital signs stable, afebrile, pulse ox normal General Appearance: The patient is alert, has no immediate need for airway protection and no current signs of toxicity. Mild distress, slightly pale appearing, skin warm and dry HEENT: Pupils equal and round no injection. TMs normal, nasal passages with. Drainage gross erythema and edema. Posterior oropharynx shows tracks of postnasal drip and gross erythema, no tonsillar hypertrophy or exudate noted Respiratory: Chest is non tender, lungs are clear to auscultation. No wheezing or rails Cardiac: regular rate and rhythm, no murmur Gastrointestinal: Abdomen is soft and non tender, no masses, bowel sounds normal. Musculoskeletal: Neck: Neck is supple and non tender. No lymph nodes Extremities have full range of motion and are non tender. Skin: No rashes or lesions. DIFFERENTIAL DIAGNOSIS: After history and physical exam differential diagnosis was considered for abdominal pain including but not limited to appendicitis, cholecystitis, gastritis and urinary tract infection. Additionally, adverse medication reaction Medical Decision Making Data Points Result Diagram: 07/30/18 1827 07/30/18 182 Laboratory Hematology Test 07/30/18 18:27 Red Blood Count 4.33 M/uL (4.17-5.56) Mean Corpuscular Volume 92.6 fL (80.0-96.0) Mean Corpuscular Hemoglobin 30.6 pg (26.0-33.0) Mean Corpuscular Hemoglobin Concent 33.0 g/dL (32.0-36.0) Red Cell Distribution Width 13.2 % (11.5-14.5) Mean Platelet Volume 7.5 fL (7.2-11.1) Neutrophils (%) (Auto) 78.3 % (39.4-72.5) Lymphocytes (%) (Auto) 16.1 % (17.6-49.6) Monocytes (%) (Auto) 4.1 % (4.1-12.4) Eosinophils (%) (Auto) 1.2 % (0.4-6.7) Basophils (%) (Auto) 0.3 % (0.3-1.4) Nucleated RBC Relative Count (auto) 0.0 /100WBC Neutrophils # (Auto) 5.2 K/uL (2.0-7.4) Lymphocytes # (Auto) 1.1 K/uL (1.3-3.6) Monocytes # (Auto) 0.3 K/uL (0.3-1.0) Eosinophils # (Auto) 0.1 K/uL (0.0-0.5) Basophils # (Auto) 0.0 K/uL (0.0-0.1) Nucleated RBC Absolute Count (auto) 0.00 K/uL Sodium Level 141 mmol/L (137-145) Potassium Level 4.6 mmol/L (3.5-5.0) Chloride Level 110 mmol/L (98-107) Carbon Dioxide Level 23 mmol/L (22-31) Blood Urea Nitrogen 17 mg/dl (7-18) Creatinine 1.20 mg/dl (0.52-1.04) Glomerular Filtration Rate Calc 48.2 Random Glucose 95 mg/dl (75-110) Calcium Level 8.6 mg/dl (8.4-10.2) Total Bilirubin 0.2 mg/dl (0.2-1.3) Aspartate Amino Transf (AST/SGOT) 29 U/L (0-35) Alanine Aminotransferase (ALT/SGPT) 32 U/L (0-56) Alkaline Phosphatase 88 U/L (0-126) Total Protein 6.8 g/dl (6.3-8.2) Albumin 3.7 g/dl (3.5-5.0) Amylase Level 97 U/L (0-110) Lipase 130 U/L (23-300) Chemistry Test 07/30/18 18:27 White Blood Count 6.7 k/uL (4.5-11.0) Red Blood Count 4.33 M/uL (4.17-5.56) Hemoglobin 13.2 g/dL (12.0-16.0) Hematocrit 40.1 % (34.0-47.0) Mean Corpuscular Volume 92.6 fL (80.0-96.0) Mean Corpuscular Hemoglobin 30.6 pg (26.0-33.0) Mean Corpuscular Hemoglobin Concent 33.0 g/dL (32.0-36.0) Red Cell Distribution Width 13.2 % (11.5-14.5) Platelet Count 252 K/uL (150-450) Mean Platelet Volume 7.5 fL (7.2-11.1) Neutrophils (%) (Auto) 78.3 % (39.4-72.5) Lymphocytes (%) (Auto) 16.1 % (17.6-49.6) Monocytes (%) (Auto) 4.1 % (4.1-12.4) Eosinophils (%) (Auto) 1.2 % (0.4-6.7) Basophils (%) (Auto) 0.3 % (0.3-1.4) Nucleated RBC Relative Count (auto) 0.0 /100WBC Neutrophils # (Auto) 5.2 K/uL (2.0-7.4) Lymphocytes # (Auto) 1.1 K/uL (1.3-3.6) Monocytes # (Auto) 0.3 K/uL (0.3-1.0) Eosinophils # (Auto) 0.1 K/uL (0.0-0.5) Basophils # (Auto) 0.0 K/uL (0.0-0.1) Nucleated RBC Absolute Count (auto) 0.00 K/uL Glomerular Filtration Rate Calc 48.2 Calcium Level 8.6 mg/dl (8.4-10.2) Total Bilirubin 0.2 mg/dl (0.2-1.3) Aspartate Amino Transf (AST/SGOT) 29 U/L (0-35) Alanine Aminotransferase (ALT/SGPT) 32 U/L (0-56) Alkaline Phosphatase 88 U/L (0-126) Total Protein 6.8 g/dl (6.3-8.2) Albumin 3.7 g/dl (3.5-5.0) Amylase Level 97 U/L (0-110) Lipase 130 U/L (23-300) ED Course/Re-evaluation Clinical Indication for ER IV: Hydration, IV Access ED Course Patient was admitted to an examination room. H&P was done. The differential diagnoses was considered. Patient with intermittent nausea over the last 3 weeks of unclear etiology. She has a significant cancer history, but is in remission. Oncology notes were reviewed. Patient has been seen for sinus infection and placed on amoxicillin and then Augmentin. She stopped several days ago. She's been vomiting for several hours. A peripheral IV is e stablished. She is treated with Zofran and Phenergan IV. She is much improved, able tolerate by mouth's. Her diagnostic studies are unremarkable. Patient's advised to treat her sinus symptoms is allergic with Flonase and Mucinex. She is advised to stop all antibiotics. If her nausea continues to persist. Patient's artery on a proton pump inhibitor. She is advised to follow-up with her primary care for further evaluation. Decision to Disposition Date: Jul 30, 2018 Decision to Disposition Time: 19:30 Depart Departure Latest Vital Signs Vital Signs Date Time Temp Pulse Resp B/P (MAP) Pulse Ox O2 Delivery O2 Flow Rate FiO2 07/30/18 19:34 63 120/106 (111) 96 07/30/18 17:49 98.6 24 Impression: Primary Impression: Nausea and vomiting Additional Impression: Sinus congestion Condition: Improved Disposition: HOME OR SELF-CARE Referrals: OWEN FORD MD (PCP) New Scripts Ondansetron Hcl (ZOFRAN) 4 Mg Tablet 4 MG PO Q6H PRN for NAUSEA/VOMITING, #10 Prov: MICHELLE BELL DO 07/30/18 Promethazine Hcl (PROMETHAZINE HCL) 25 Mg Tablet 25 MG PO Q4H PRN for NAUSEA/VOMITING, #14 TAB Prov: ARABELLAMICHELLE DO 07/30/18 Patient Instructions: Acute Nausea and Vomiting (ED), Clear Liquid Diet (ED) Additional Instructions: Follow clear liquid diet for 24-48 hours, then advance to the brat diet, bananas, rice, applesauce and toast Use Nasonex and Mucinex Use Phenergan and Zofran to control your nausea and vomiting Follow-up with your primary care Dr Ford if unimproved in 3-5 days Problem Qualifiers Primary Impression: Nausea and vomiting Vomiting type: unspecified Vomiting Intractability: unspecified Qualified Codes: R11.2 - Nausea with vomiting, unspecified MICHELLE BELL DO Jul 30, 2018 18:32
[2018-07-30 18:38] LABS: PLATELET COUNT, AUTOMATED 252 K/uL (150-450)
[2018-07-30] MEDS ORDERED: PROM-110 PO (19:32)
[2018-07-30 19:34] VITALS: BP 120/106
[2018-07-30] MEDS ORDERED: PROMETHAZINE HCL 25 MG TAB TH 2 TAB/BOTTLE PO ONE (19:50)
[2018-07-30] MEDS ORDERED: ONDA4TAB97 PO (20:10)
== END 2018-07-30 20:01 | disposition home or self-care (01) ==
LOC: ER 18:08
DX: R11.2 Nausea with vomiting, unspecified (principal); R09.81 Nasal congestion
CPT/HCPCS: 82150; 83690; 85025; 96361; 96374; 96375; 99284; J2405; J2550; J7030; 36415; 82040; 82247; 82310; 82374; 82435; 82565; 82947; 84075; 84132; 84155; 84295; 84450; 84460; 84520

== ENCOUNTER → 2018-08-26 | Emergency (ER) | payer MEDICAID ==
[2017-10-24 08:37] VITALS: Wt 84.1 kg
[~2018-08-26] MED LIST changes: +NS(*) 0.9% 1000 ML BAG 1,000 ML IV ONE; +ONDA4TAB97 PO; +ONDANSETRON 4 MG ODT TH SL ONE; +ONDANSETRON 4 MG/2 ML VIAL IVP ONE; +Trintellix PO
--- NOTE | 2018-08-26 18:48 | ER Report ---
History and Physical Time Seen By MD: 18:00 Hx. of Stated Complaint: VOMITING SINCE 9 AM HPI/ROS CHIEF COMPLAINT: Nausea vomiting HISTORY OF PRESENT ILLNESS: 48-year-old female patient presents to emergency room with complaint of nausea and vomiting. Patient states this started about 9:00 this morning. Patient states she been taking Zofran up to 3 times a day to help with nausea for the past month. She states that she's not had any fevers, chills, diarrhea. She states that she believes this possibly related to her p sych meds that she has been started on. She states that she is follow-up with her primary care provider and that was her opinion. She states that she ran out of Zofran yesterday and has not taken any today. She presents with her vomiting since about. She states she's not been able to keep anything down today. She states she has not tried to eat, but has tried to drink. Patient states there is nothing this been effective in helping her son vomiting. REVIEW OF SYSTEMS: Respiratory: No cough, no dyspnea. Cardiovascular: No chest pain, no palpitations. Gastrointestinal: As noted above Musculoskeletal: No back pain. Allergies: Coded Allergies: bupropion (Verified Allergy, Severe, RASH, HIVES, SWELLING, 08/26/18) atorvastatin (Verified Adverse Reaction, Intermediate, Leg pain, 08/26/18) Home Meds Active Scripts Ondansetron 4 Mg Odt (ONDANSETRON 4 MG ODT) 4 Mg Tab.rapdis, 4 MG PO Q6H PRN for NAUSEA/VOMITING, #20 TAB Prov:SUNIL GERMAN 08/26/18 Pravastatin Sodium (PRAVASTATIN SODIUM) 40 Mg Tablet, 40 MG PO QDAY, #90 TAB 3 Refills Prov:OWEN FORD MD 06/05/18 Albuterol Sulfate (VENTOLIN HFA) 18 Gm Inh, 2 PUFF INH QID PRN for WHEEZING, #3 INH 3 Refills Prov:OWEN FORD MD 05/02/18 Buspirone Hcl (BUSPIRONE HCL) 10 Mg Tablet, 10 MG PO BID, #30 TAB Prov:OWEN FORD MD 02/04/18 Reported Medications [Trintellix] No Conflict Check, 10 MG PO DAILY 08/15/18 Amphet Asp/Amphet/D-Amphet (ADDERALL 12.5 MG TABLET) 12.5 Mg Tablet, 12.5 MG PO BID 05/04/18 [L Methly Folate] No Conflict Check, 15 MG QID 04/20/18 Psyllium Husk/Aspartame (Metamucil Sugar-Free Powder) 3.4 Gram/5.8 Gram Powder, 2 TSP PO BID 02/04/18 Estradiol (ESTRACE) 0.5 Mg Tablet, 0.5 MG PO DAILY 02/04/18 Multivitamin W/Iron, Minerals (FLINTSTONES COMPLETE) 1 Each Tab.chew, 2 EACH PO DAILY, TAB.CHEW 10/11/16 Iron Polysaccharides Complex (POLYSACCHARIDE IRON 150) 150 Mg Capsule, 27 MG PO QDAY, CAPSULE 10/11/16 Cyanocobalamin (Vitamin B-12) (Vitamin B12) Unknown Strength Tablet, 1000 MCG PO QWEEK 03/16/15 Ascorbic Acid (VITAMIN C) 500 Mg Tab.chew, 500 MG PO BID, TAB.CHEW 03/16/15 Cholecalciferol (Vitamin D3) (VITAMIN D-3) 2,000 Unit Capsule, 2000 UNIT PO QDAY, CAPSULE 03/12/15 [place]-3 Fatty Acids/Fish Oil (OMEGA 3 FISH OIL SOFTGEL) 1 Each Capsule.dr, 1 EACH PO BID 03/12/15 Calcium (Calcium) 500 Mg Tablet, 1000 MG PO DAILY, 0 Refills 02/06/11 Discontinued Reported Medications Cranberry Extract (CRANBERRY) Unknown Strength Capsule, PO, CAPSULE 02/04/18 Discontinued Scripts Ondansetron Hcl (ZOFRAN) 4 Mg Tablet, 4 MG PO Q6H PRN for NAUSEA/VOMITING, #30 TAB 0 Refills Prov:OWEN FORD MD 08/07/18 Omeprazole (OMEPRAZOLE) 40 Mg Capsule., 40 MG PO QDAY, #30 CAP 11 Refills Prov:OWEN FORD MD 08/07/18 Promethazine Hcl (PROMETHAZINE HCL) 25 Mg Tablet, 25 MG PO Q4H PRN for NAUSEA/VOMITING, #14 TAB Prov:MICHELLE BELL DO 07/30/18 Hydroxyzine Hcl (HYDROXYZINE HCL) 25 Mg Tablet, 25 MG PO TID for Anxiety, #40 TAB Prov:OWEN FORD MD 06/05/18 Past Medical/Surgical History Patient has a past medical history of pulmonary emboli, frequent bronchitis, sinusitis, asthma, pneumonia, ulcers, bowel obstruction, stress ulcer, hiatal hernia, arthritis, anemia, marijuana use, depression, renal cell carcinoma. Patient has a surgical history of tonsillectomy, wisdom teeth removed, left ulnar nerve release, hysterectomy, right nephrectomy, gastric bypass, abdominal adhesions. Patient has a family medical history of cancer. Reviewed Nurses Notes: Yes Hx Smoking: Yes (1-10 per day for 6 years ) Smoking Status: Current: Every Day Smoker, Light Tobacco Smoker Exposure to Second Hand Smoke?: Yes (family friends smoked) Hx Substance Use Disorder: No (marijuana last use several weeks ago) Hx Alcohol Use: No Constitutional Vital Sign - Last 24 Hours 08/26/18 08/26/18 08/26/18 17:54 18:00 18:30 Temp 98.1 Pulse 73 82 58 Resp 24 B/P (MAP) 135/107 131/79 (96) 130/65 (86) Pulse Ox 94 96 96 O2 Delivery Room Air Physical Exam General Appearance: The patient is alert, has no immediate need for airway protection and no current signs of toxicity. Respiratory: Chest is non tender, lungs are clear to auscultation. Cardiac: regular rate and rhythm Gastrointestinal: Abdomen is soft and non tender, no masses, bowel sounds are hyperactive. Musculoskeletal: Neck: Neck is supple and non tender. Extremities have full range of motion and are non tender. Skin: No rashes or lesions. DIFFERENTIAL DIAGNOSIS: After history and physical exam differential diagnosis was considered for nausea and vomiting including but not limited to gastroenteritis, gastritis, appendicitis, and medication side effect. Medical Decision Making Data Points Result Diagram: 08/26/18185708/26/188 Laboratory Hematology Test 08/26/18 18:58 08/26/18 19:13 Red Blood Count 5.01 M/uL (4.17-5.56) Mean Corpuscular Volume 91.7 fL (80.0-96.0) Mean Corpuscular Hemoglobin 30.7 pg (26.0-33.0) Mean Corpuscular Hemoglobin Concent 33.4 g/dL (32.0-36.0) Red Cell Distribution Width 13.3 % (11.5-14.5) Mean Platelet Volume 8.0 fL (7.2-11.1) Neutrophils (%) (Auto) 78.9 % (39.4-72.5) Lymphocytes (%) (Auto) 13.5 % (17.6-49.6) Monocytes (%) (Auto) 4.6 % (4.1-12.4) Eosinophils (%) (Auto) 1.0 % (0.4-6.7) Basophils (%) (Auto) 2.0 % (0.3-1.4) Nucleated RBC Relative Count (auto) 0.0 /100WBC Neutrophils # (Auto) 3.6 K/uL (2.0-7.4) Lymphocytes # (Auto) 0.6 K/uL (1.3-3.6) Monocytes # (Auto) 0.2 K/uL (0.3-1.0) Eosinophils # (Auto) 0.0 K/uL (0.0-0.5) Basophils # (Auto) 0.1 K/uL (0.0-0.1) Nucleated RBC Absolute Count (auto) 0.00 K/uL Sodium Level 142 mmol/L (137-145) Potassium Level 4.6 mmol/L (3.5-5.0) Chloride Level 111 mmol/L (98-107) Carbon Dioxide Level 22 mmol/L (22-31) Blood Urea Nitrogen 18 mg/dl (7-18) Creatinine 1.20 mg/dl (0.52-1.04) Glomerular Filtration Rate Calc 48.2 Random Glucose 110 mg/dl (75-110) Calcium Level 9.6 mg/dl (8.4-10.2) Total Bilirubin 0.5 mg/dl (0.2-1.3) Aspartate Amino Transf (AST/SGOT) 35 U/L (0-35) Alanine Aminotransferase (ALT/SGPT) 30 U/L (0-56) Alkaline Phosphatase 108 U/L (0-126) Total Protein 7.8 g/dl (6.3-8.2) Albumin 4.4 g/dl (3.5-5.0) Amylase Level 120 U/L (0-110) Lipase 111 U/L (23-300) Urine Color Yellow Urine Clarity Clear Urine pH 5.0 pH (4.8-9.5) Urine Specific [place] 1.020 Urine Protein Negative mg/dL (NEGATIVE) Urine Glucose (UA) Negative mg/dL (NEGATIVE) Urine Ketones Trace mg/dL (NEGATIVE) Urine Blood Negative (NEGATIVE) Urine Nitrite Negative (NEGATIVE) Urine Bilirubin Negative (NEGATIVE) Urine Urobilinogen 2.0 mg/dL (0.2-1.9) Urine Leukocyte Esterase Negative (NEGATIVE) Urine RBC 1 /HPF (0-2/HPF) Urine WBC 1 /HPF (0-5/HPF) Urine Squamous Epithelial Cells Few /LPF (</=FEW) Urine Bacteria Negative /HPF (NONE-FEW) Urine Hyaline Casts Few /LPF (NONE-FEW) Urine Mucus Few /HPF (NONE-FEW) Chemistry Test 08/26/18 18:58 08/26/18 19:13 White Blood Count 4.6 k/uL (4.5-11.0) Red Blood Count 5.01 M/uL (4.17-5.56) Hemoglobin 15.4 g/dL (12.0-16.0) Hematocrit 45.9 % (34.0-47.0) Mean Corpuscular Volume 91.7 fL (80.0-96.0) Mean Corpuscular Hemoglobin 30.7 pg (26.0-33.0) Mean Corpuscular Hemoglobin Concent 33.4 g/dL (32.0-36.0) Red Cell Distribution Width 13.3 % (11.5-14.5) Platelet Count 243 K/uL (150-450) Mean Platelet Volume 8.0 fL (7.2-11.1) Neutrophils (%) (Auto) 78.9 % (39.4-72.5) Lymphocytes (%) (Auto) 13.5 % (17.6-49.6) Monocytes (%) (Auto) 4.6 % (4.1-12.4) Eosinophils (%) (Auto) 1.0 % (0.4-6.7) Basophils (%) (Auto) 2.0 % (0.3-1.4) Nucleated RBC Relative Count (auto) 0.0 /100WBC Neutrophils # (Auto) 3.6 K/uL (2.0-7.4) Lymphocytes # (Auto) 0.6 K/uL (1.3-3.6) Monocytes # (Auto) 0.2 K/uL (0.3-1.0) Eosinophils # (Auto) 0.0 K/uL (0.0-0.5) Basophils # (Auto) 0.1 K/uL (0.0-0.1) Nucleated RBC Absolute Count (auto) 0.00 K/uL Glomerular Filtration Rate Calc 48.2 Calcium Level 9.6 mg/dl (8.4-10.2) Total Bilirubin 0.5 mg/dl (0.2-1.3) Aspartate Amino Transf (AST/SGOT) 35 U/L (0-35) Alanine Aminotransferase (ALT/SGPT) 30 U/L (0-56) Alkaline Phosphatase 108 U/L (0-126) Total Protein 7.8 g/dl (6.3-8.2) Albumin 4.4 g/dl (3.5-5.0) Amylase Level 120 U/L (0-110) Lipase 111 U/L (23-300) Urine Color Yellow Urine Clarity Clear Urine pH 5.0 pH (4.8-9.5) Urine Specific [place] 1.020 Urine Protein Negative mg/dL (NEGATIVE) Urine Glucose (UA) Negative mg/dL (NEGATIVE) Urine Ketones Trace mg/dL (NEGATIVE) Urine Blood Negative (NEGATIVE) Urine Nitrite Negative (NEGATIVE) Urine Bilirubin Negative (NEGATIVE) Urine Urobilinogen 2.0 mg/dL (0.2-1.9) Urine Leukocyte Esterase Negative (NEGATIVE) Urine RBC 1 /HPF (0-2/HPF) Urine WBC 1 /HPF (0-5/HPF) Urine Squamous Epithelial Cells Few /LPF (</=FEW) Urine Bacteria Negative /HPF (NONE-FEW) Urine Hyaline Casts Few /LPF (NONE-FEW) Urine Mucus Few /HPF (NONE-FEW) Urinalysis Test 08/26/18 19:13 Urine Color Yellow Urine Clarity Clear Urine pH 5.0 pH (4.8-9.5) Urine Specific [place] 1.020 Urine Protein Negative mg/dL (NEGATIVE) Urine Glucose (UA) Negative mg/dL (NEGATIVE) Urine Ketones Trace mg/dL (NEGATIVE) Urine Blood Negative (NEGATIVE) Urine Nitrite Negative (NEGATIVE) Urine Bilirubin Negative (NEGATIVE) Urine Urobilinogen 2.0 mg/dL (0.2-1.9) Urine Leukocyte Esterase Negative (NEGATIVE) Urine RBC 1 /HPF (0-2/HPF) Urine WBC 1 /HPF (0-5/HPF) Urine Squamous Epithelial Cells Few /LPF (</=FEW) Urine Bacteria Negative /HPF (NONE-FEW) Urine Hyaline Casts Few /LPF (NONE-FEW) Urine Mucus Few /HPF (NONE-FEW) EKG/Imaging Imaging Exam type: ACUTE ABDOMEN SERIES 3 VIEW History: nausea and vomiting Comparison: 03/13/2015. Findings: Both lungs are well-expanded and clear. There is no focal infiltrate, pleural effusion or pneumothorax. The bowel gas pattern demonstrates constipation. Some modestly distended small large bowel loops are noted but no definite bowel obstruction or free air. Surgical clips overlie the gallbladder fossa. The osseous structures demonstrate postoperative changes in lower cervical spine. Suture overlies the stomach likely from prior gastric bypass procedure. IMPRESSION: 1. No acute cardiopulmonary disease. 2. Constipation and modestly distended bowel loops but no definite obstruction or free air. Report Dictated By: Brady Iniguez MD at 08/26/2018 7:47 PM Report E-Signed By: Brady Iniguez MD at 08/26/2018 7:49 PM ED Course/Re-evaluation ED Course Patient was admitted to an exam room, history and physical were obtained. Differential diagnoses were considered. On examination lungs are clear, heart is regular, abdomen is soft and nontender. Bowel sounds are hyperactive. IV was started, a CBC, CMP, amylase, lipase were done. Lab results were unremarkable. A acute abdominal x-ray was done. The x-ray showed constipation but no signs of obstruction. Patient did receive a liter of normal saline as well as 4 mg of Zofran. Patient had significant improvement with the Zofran. I reevaluation she states she is not feeling nauseated and was actually requesting something to drink. She drinks water and was able tolerate that without any difficulties. Patient will be discharged home. I believe that this is likely a reaction to her Trintellix. I encouraged her to follow-up with her primary care provider to work out the best way to taper off the medication. Patient verbalized understanding and agreement. Patient will be discharged home with a prescription of Zofran. Decision to Disposition Date: August 26, 2018 Decision to Disposition Time: 20:20 Depart Departure Latest Vital Signs Vital Signs Date Time Temp Pulse Resp B/P (MAP) Pulse Ox O2 Delivery O2 Flow Rate FiO2 08/26/18 18:30 58 130/65 (86) 96 08/26/18 17:54 98.1 24 Room Air Impression: Primary Impression: Nausea and vomiting Additional Impression: Adverse effects of medication Condition: Improved Disposition: HOME OR SELF-CARE Referrals: OWEN FORD MD (PCP) New Scripts Ondansetron 4 Mg Odt (ONDANSETRON 4 MG ODT) 4 Mg Tab.rapdis 4 MG PO Q6H PRN for NAUSEA/VOMITING, #20 TAB Prov: SUNIL GERMAN 08/26/18 Patient Instructions: Acute Nausea and Vomiting (ED) Additional Instructions: I believe that this is related to the Trintellix. Take with Reena Stallings about tapering off the medication. Increase fluid intake. Take the Zofran as needed for nausea and vomiting. Return to the ER if condition worsens. Problem Qualifiers Primary Impression: Nausea and vomiting Vomiting type: unspecified Vomiting Intractability: non-intractable Qualified Codes: R11.2 - Nausea with vomiting, unspecified Additional Impression: Adverse effects of medication Encounter type: initial encounter Qualified Codes: T50.905A - Adverse effect of unspecified drugs, medicaments and biological substances, initial encounter SUNIL GERMAN August 26, 2018 18:48
[2018-08-26 19:04] LABS: PLATELET COUNT, AUTOMATED 243 K/uL (150-450)
--- NOTE | 2018-08-26 19:54 | RADIOLOGY IMAGING REPORT ---
FACILITY: [facility] PATIENT NAME: Lisseth Adame : 1970 MR: [id number] V: [id number] EXAM DATE: ORDERING PHYSICIAN: SUNIL GERMAN TECHNOLOGIST: Location: [facility] [place] Patient: Lisseth Adame : 1970 Visit/Account:[id number] Date of Sevice: 08/26/2018 Exam type: ACUTE ABDOMEN SERIES 3 VIEW History: nausea and vomiting Comparison: 03/13/2015. Findings: Both lungs are well-expanded and clear. There is no focal infiltrate, pleural effusion or pneumothora x. The bowel gas pattern demonstrates constipation. Some modestly distended small large bowel loops are noted but no definite bowel obstruction or free air. Surgical clips overlie the gallbladder fossa. The osseous structures demonstrate postoperative changes in lower cervical spine. Suture overlies the stomach likely from prior gastric bypass procedure. IMPRESSION: 1. No acute cardiopulmonary disease. 2. Constipation and modestly distended bowel loops but no definite obstruction or free air. Report Dictated By: Brady Iniguez MD at 08/26/2018 7:47 PM Report E-Signed By: Brady Iniguez MD at 08/26/2018 7:49 PM WSN:[id number]
[2018-08-26 20:00] VITALS: BP 111/88
== END ==
LOC: ER 18:02
DX: R11.2 Nausea with vomiting, unspecified (principal); T50.905A Adverse effect of unspecified drugs, medicaments and biological substances, initial encounter
CPT/HCPCS: 36415; 74022; 81001; 82150; 83690; 85025; 96361; 96374; 99284; J2405; J7030; S0119; 82040; 82247; 82310; 82374; 82435; 82565; 82947; 84075; 84132; 84155; 84295; 84450; 84460; 84520

== ENCOUNTER → 2018-08-26 | Outpatient (CLI) | payer MEDICAID ==
[2017-10-24 08:37] VITALS: BMI 31.7
[~2018-08-26] MED LIST changes: -NS(*) 0.9% 1000 ML BAG 1,000 ML IV ONE; -ONDANSETRON 4 MG ODT TH SL ONE; -ONDANSETRON 4 MG/2 ML VIAL IVP ONE
== END ==
LOC: AMB 17:27
PROVIDERS: ATTEND Nurse Practitioner
DX: R11.10 Vomiting, unspecified (principal)
CPT/HCPCS: A0425; A0427

== ENCOUNTER → 2018-09-09 | Outpatient (CLI) | payer MEDICAID ==
[2017-10-24 08:37] VITALS: BMI 31.7
[~2018-09-09] MED LIST changes: -OMEP-125 PO; +OMEP-126 PO; -TRAZ50TA34 PO; +TRAZ50TA52 PO; +TRINTELLIX PO
== END ==
LOC: AMB 06:57
PROVIDERS: ATTEND Nurse Practitioner
DX: F41.9 Anxiety disorder, unspecified (principal)
CPT/HCPCS: A0425; A0429

== ENCOUNTER 2018-10-02 09:53 | Outpatient (RCR) | payer MEDICAID ==
[2017-10-24 08:37] VITALS: Wt 87.3 kg
[2018-09-22 08:21] VITALS: BP 123/77
[2018-09-22 08:51] LABS: PLATELET COUNT, AUTOMATED 257 K/uL (150-450)
--- NOTE | 2018-09-23 14:44 | NUR ---
Called patient back regarding the message she left earlier. She stated that she wanted to let us know about left leg pain that she was having. She denies any swelling or redness to the extremity. She states that it is in her hip and "thigh muscle". Nurse informed her that if she feels that it needs to be addressed immediately then she should seek the advice of her primary care provider. She also asked if MUGS could cause fatigue. Nurse informed her that many diagnoses have fatigue as a common side effect. She verbalized understanding. Nurse asked her to notify our office if she decides to see her PCP for the leg pain. She agrees with the plan of care.
[2018-10-02 10:20] VITALS: BP 121/68
[2018-10-02] MEDS ORDERED: VILA20TA PO (10:23)
[2018-10-02] MEDS ORDERED: ABILIF5PT PO (10:23)
--- NOTE | 2018-10-03 03:42 | [facility] ONCOLOGY NOTE ---
EVENT DATE: October 02, 2018 DIAGNOSES 1. 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 2. Pulmonary embolism. 3. Depression. 4. Asthma/chronic obstructive pulmonary disease. CHIEF COMPLAINT Patient is here today for followup of her transitional cell carcinoma and iron- deficiency anemia. ONCOLOGY HISTORY The patient is a 48-year-old female who was diagnosed with transitional cell carcinoma of the right renal pelvis in September 2006. The patient was found to have a mass in the right kidney, so on September 27, 2006, the patient had a right kidney lime biopsy which showed low-grade papillary urothelial carcinoma. On October 28, 2006, the patient had a right nephroureterectomy and pathology for the ureters was negative for malignancy and for the nephrectomy was positive for papillary noninvasive carcinoma with clear margin, low-grade transitional cell carcinoma. After that, the patient did not receive any adjuvant treatment. A followup CT of abdomen and pelvis on July 06, 2009, revealed 2.07 cm partially enhancing soft tissue nodule density in the right nephrectomy bed, which was increasing in size. On July 18, 2009, a CT-guided biopsy of the right nephrectomy bed was done and pathology was positive for transitional cell carcinoma. On August 08, 2009, the patient had resection of that mass with liver resection, and the pathology came back positive for 2 cm poorly differentiated metastatic tumor consistent with transitional cell carcinoma with clear margins. She was diagnosed with pulmonary embolism by CTA of the chest done on October 15, 2009, involving the right lower lobe. The patient received two cycles of cisplatin and gemcitabine after her surgery for recurrent transitional cell carcinoma of the right renal pelvis. She developed bone marrow suppression, nausea and vomiting with her treatment, so her treatment was modified. Her pathology from surgery for recurrent transitional cell carcinoma done on August 08, 2009, was clear for a local recurrence and liver involvement due to direct extension. The tumor was affixed to the apex and lower end of the right lobe of the liver and not a systemic metastasis. The patient received chemotherapy with cisplatin and gemcitabine between September 20, 2009, through February 22, 2010. She received a total of six cycles. This was followed by radiation therapy to the right nephrectomy bed. She received a total of 39.6 Gy between March 13, 2010, through April 22, 2010. HISTORY OF PRESENT ILLNESS Patient is here today for followup of her anemia and transitional cell carcinoma of the right renal pelvis. She is complaining of epistaxis occasionally from dry weather. She has alternating diarrhea and constipation from her bypass surgery. She has pain in her left leg. She bruises easily. She is weak, tired and fatigued. PAST MEDICAL HISTORY 1. Asthma and COPD. 2. History of pneumonia. 3. Transitional cell carcinoma of the right renal pelvis with recurrence. 4. Depression. 5. History of pulmonary embolus. 6. Bleeding peptic ulcer disease diagnosed in December 2009 with positive H. pylori treated with antibiotic. 7. History of Clostridium difficile colitis December 2009 treated with Flagyl. PAST SURGICAL HISTORY 1. Tonsillectomy in 1973. 2. Surgical repair of fractured left toe in 1979. 3. [place] tooth extraction in 1987. 4. section in 1989, 1991 and 1997. 5. Surgical resection of the left foot bone spur in 1989. 6. Carpal tunnel release in 1992 and 1993. 7. Bilateral ulnar nerve translocation in 1993. 8. Total abdominal hysterectomy for menorrhagia in 1999, ovaries left in place. 9. Gastric bypass at [facility] in 2004. 10. Right nephroureterectomy in 2006. 11. Surgical reduction of an internal incarcerated small bowel hernia in 2008. 12. August 2009, the patient had surgical resection of a 2 cm recurrent, poorly differentiated transitional cell carcinoma from the previous right nephrectomy bed along with right twelfth rib dissection. SOCIAL HISTORY The patient is a homemaker. She is a . She has two daughters. She quit smoking, but she smoked a half to one pack a day 15 years. She quit August 2009. Denies any abuse of alcohol or drugs. FAMILY HISTORY Unknown because the patient was adopted. CURRENT MEDICATIONS 1. Paxil 60 mg daily. 2. Vitamin B12, 1 mg subcutaneously monthly. 3. [place] 3-6-9 one tablet p.o. daily. 4. Vitamin C one tablet daily. 5. Calcium citrate one tablet daily. 6. Multivitamins one tablet daily. 7. Albuterol inhaler. 8. Adderall 20 mg daily. ALLERGIES WELLBUTRIN, which causes hives, rash and swelling. REVIEW OF SYSTEMS CONSTITUTIONAL: No appetite or weight change. No fever, chills or sweating. No recent infection. HEENT: Ears: No tinnitus or hearing problem. Nose: She has epistaxis with dry weather occasionally. Throat: No sore throat or mouth ulcers. Eyes: No diplopia or visual changes. RESPIRATORY: No shortness of breath. No cough, expectoration or hemoptysis. CARDIOVASCULAR: No chest pain, orthopnea, or paroxysmal nocturnal dyspnea (PND). No edema. No palpitations. GASTROINTESTINAL: She has alternating diarrhea and constipation from her gastric bypass surgery. GENITOURINARY: No hematuria or dysuria. MUSCULOSKELETAL: She has pain in her left leg. NEUROLOGICAL: No tingling or numbness in the hands or feet. No headaches or convulsions. HEMATOLOGIC/LYMPHATIC: She bruises easily. She is weak, tired and fatigued. SKIN: No skin rash or lumps. PSYCHIATRIC: No anxiety or depression. PHYSICAL EXAMINATION GENERAL: Looks stable. Well-developed, well-nourished, and in no acute distress. VITAL SIGNS: Blood pressure 121/68, pulse 76 per minute, respirations 16 per minute, temperature 97.7, pulse oximetry 97% on room air. HEENT: Head: Atraumatic. No sinus tenderness to palpation. Eyes: No icterus or conjunctivitis. Mouth and throat: No oral thrush or mucositis. NECK: Supple. No cervical or supraclavicular lymphadenopathy. LUNGS: Clear to auscultation and percussion bilaterally. HEART: Regular rate and rhythm. No gallops, murmurs, clicks or rubs. ABDOMEN: Soft and lax. No tenderness. No hepatosplenomegaly. No masses. EXTREMITIES: No cyanosis, clubbing or edema. LYMPHATICS: No peripheral lymphadenopathy. NEUROLOGICAL: Conscious, alert and oriented times three. No focal motor or sensory deficits. PSYCHIATRIC: Mood and affect appear normal. SKIN: No skin rash, bruise or purpuric eruption. DIAGNOSTIC DATA CBC showed white count 5.4, hemoglobin 15, hematocrit 44.8, platelet 257,000. Chem panel totally normal except creatinine 1.2, potassium 5.3, chloride 110, carbon dioxide 19, BUN 21, uric acid 7.7, AST 38, alkaline phosphatase 134. ASSESSMENT 1. Locally recurrent transitional cell carcinoma of the right renal pelvis with involvement of the nephrectomy bed, with invasion of the liver. Patient initially had right nephroureterectomy in 2006 with recurrence in July 2009. She had resection of the mass from the right nephrectomy bed, which was invading the liver, on August 08, 2009. Invasion of the liver was due to local extension rather than from metastatic spread. After surgery, patient received chemotherapy with cisplatin and gemcitabine. She received six cycles between September 20, 2009, through February 22, 2010. After that, patient received radiation therapy to the nephrectomy bed, and she received a total of 39.6 Gy between March 13, 2010, through April 22, 2010. Patient currently in complete remission. 2. History of iron-deficiency anemia. Patient currently is using iron pills. She takes one pill a day. Her hemoglobin currently is very good at 15. I am planning to see her again in a year with a CBC, chemistry panel, and iron studies at that time. 3. History of pulmonary embolism, status post six months of anticoagulation. 4. Mild renal impairment, most probably from her nephrectomy. Her current creatinine is 1.2, which is reasonable. PLAN 1. Continue followup. 2. Patient to return in one year with CBC, chem panel, iron studies with ferritin. 3. Patient to contact us if she will develop any anemia in the future. MTDD
== END 2018-10-06 15:10 | disposition home or self-care (01) ==
LOC: ONC 09:53
PROVIDERS: ATTEND Internal Medicine Hematology
DX: Z85.53 Personal history of malignant neoplasm of renal pelvis (principal); Z92.21 Personal history of antineoplastic chemotherapy; Z92.3 Personal history of irradiation; N28.9 Disorder of kidney and ureter, unspecified; Z87.891 Personal history of nicotine dependence; F32.9 Major depressive disorder, single episode, unspecified; I26.99 Other pulmonary embolism without acute cor pulmonale; J45.909 Unspecified asthma, uncomplicated
CPT/HCPCS: 36415; 82232; 83615; 83883; 84550; 85025; 86334; G0463; 82040; 82247; 82310; 82374; 82435; 82565; 82947; 84075; 84132; 84155; 84295; 84450; 84460; 84520; 99212